=== PATIENT | male | born 1955 | race Caucasian/White ===

== ENCOUNTER → 2017-08-24 | Outpatient (CLI) | payer MEDICARE, SELFPAY | PROVIDERS: Family Provider Nurse Practitioner Family; Visit Provider Internal Medicine | DX: R07.9 Chest pain, unspecified (principal); R94.31 Abnormal electrocardiogram [ECG] [EKG]; E11.9 Type 2 diabetes mellitus without complications; I10 Essential (primary) hypertension; E78.2 Mixed hyperlipidemia; K21.9 Gastro-esophageal reflux disease without esophagitis; Z87.891 Personal history of nicotine dependence | CPT/HCPCS: 78452; 93017; A9502; J2785 ==

== ENCOUNTER 2017-09-07 06:59 | Day surgery (SDC) | payer MEDICARE, SELFPAY ==
[2017-09-07] VITALS (15 sets, daily range): BP systolic 85–157; BP diastolic 42–90; PULSE 47–63; RESP 16–18; TEMP 36.7; O2SAT 91–98; BMI 30.5
--- NOTE | 2017-09-07 07:16 | IR_ITS ---
CARDIAC CATHETERIZATION DATE OF CATHETERIZATION:09/07/2017 11:09 AM PROCEDURES: 1. Left heart catheterization 2. Left ventriculogram 3. Selective coronary angiogram 4. Drug-eluting stent deployment to the proximal mid dominant right coronary artery INDICATION FOR TEST: 1. Coronary artery disease 2. Abnormal high risk Myoview with inferior lateral ischemia 3. Angina pectoris 3 Informed consent was obtained prior to the procedure. COMPLICATIONS: None ESTIMATED BLOOD LOSS: Less than 10 ml. TECHNIQUE: One percent lidocaine used to anesthetize the right anterior aspect of the wrist. The right radial artery was accessed via the Seldinger technique. A 6 [place] sheath was placed in the right radial artery. 2.5 mg of verapamil, 800 mcg of nitroglycerin and 5000 U Heparin were given through the arterial sheath. The trap catheter was also used to perform left heart catheterization left ventriculogram and selective coronary angiogram. At the end the diagnostic angiogram and additional 5000 units of heparin was administered intravenously giving an ACT of 316 seconds. An TheraVida right guide catheter was used intubate the right coronary artery and a BMW wire was placed distally. A 3.5 x 26 mm resolute Blake stent was deployed in the proximal to mid segment 20 gabby reducing the stenosis to 0%. DALTON-3 flow was present before and after the procedure. Brilinta 180 mg was given while on the table. At the end the procedure the sheath was removed good hemostasis was achieved using TR banding patient transferred the postop holding area in stable condition ANGIOGRAPHIC RESULTS: 1. The left main artery normal 2. The left anterior descending artery proximally has 10-20% stenoses with mid vessel 20 and 30% stenoses 3. The circumflex artery is a nondominant vessel and has mild 10% luminal irregularities 4. The right coronary artery is a large dominant vessel and has a proximal concentric 80% stenosis followed by long 50% stenosis. Distally the vessel has 10-20% stenoses 5. The LOVELACE ventriculogram reveals normal 65% 6. The left ventricular end-diastolic pressure 10 mmHg IMPRESSION: 1. Severe single vessel coronary artery disease which perfectly corresponds to the high risk abnormal Myoview 2. Successful stenting of the proximal to mid dominant right coronary artery severe disease reduced to 0% with 1 drug-eluting stent 3. Normal ejection fraction 4. Normal left ventricular end-diastolic pressure PLAN: 1. Brilinta and aspirin 2. LDL less than 55 3. Cardiac rehabilitation 4. Risk factor modification
[2017-09-07 08:11] LABS: Basophils # 0.1 K/mm3 (0-0.2); Eosinophils # 0.6 K/mm3 (0.0-0.4); Eosinophils % 6.5 % (0.1-12.0); Hematocrit 46.9 % (42.0-52.0); Hemoglobin 14.9 g/dL (14.1-18.0); Lymphocytes # 1.7 K/mm3 (0.7-4.5); Lymphocytes % 17.6 K/mm3 (10-50); Mean Corpuscular HGB Conc 31.7 g/dL (31.8-35.4); Mean Corpuscular Hemoglobin 27.4 pg (27.0-31.2); Mean Corpuscular Volume 86.2 fl (80-94); Mean Platelet Volume 6.9 fl (7.4-10.4); Monocytes # 0.6 K/mm3 (0.1-1.0); Monocytes % 6.3 % (1.7-9.3); Neutrophils # 6.5 K/mm3 (1.8-7.8); Neutrophils % 68.5 % (37.0-80.0); Platelet Count 430 K/mm3 (142-424); Red Blood Count 5.44 M/mm3 (4.60-6.20); Red Cell Distribution Width 14.3 % (11.5-17.5); White Blood Count 9.4 K/mm3 (4.8-10.8)
[2017-09-07 08:15] LABS: Anion Gap 10.2 mEq/L (5-15); Blood Urea Nitrogen 17 mg/dL (7-18); Carbon Dioxide 29 mmol/L (21.0-32.0); Chloride 103 mmol/L (98-107); Creatinine Clearance Estimated 88 mg/ml (0-300); Creatinine,Serum 1.21 mg/dL (0.70-1.30); Estimated Glomerular Filt Rate > 60 ml/min (>60); GFR (African American) > 60 ML/MIN (>60); Glucose 183 mg/dL (74-106); Potassium 4.2 mmoL/L (3.5-5.1); Sodium 138 mmol/L (136-145)
[2017-09-07 15:25] LABS: CATHL Activated Clotting Time 316 SEC (74-125)
== END 2017-09-07 15:00 | disposition home or self-care (01) ==
LOC: CATHLAB 07:03
PROVIDERS: PCP Emergency Medicine; Visit Provider Internal Medicine
DX: I25.119 Atherosclerotic heart disease of native coronary artery with unspecified angina pectoris (principal); R94.39 Abnormal result of other cardiovascular function study
CPT/HCPCS: 80048; 85025; 85347; 92928; 93458; 99152; C1725; C1769; C1876; C9600; J1644; Q9967

== ENCOUNTER 2017-11-03 03:50 | Emergency (ER) | payer MEDICARE, SELFPAY ==
[2017-11-03 03:53] VITALS: BP 172/88; PULSE 112; RESP 24; TEMP 36.6; O2SAT 97; BMI 31.0
--- NOTE | 2017-11-03 04:04 | XR_ITS ---
XR chest portable HISTORY: ITS.REASON: cough with blood ORDERING PHYSICIAN: Bishop Benjamin MD PATIENT AGE: 62 years COMPARISON: None available FINDINGS: The cardiomediastinal silhouette and pulmonary vascularity are within normal limits. There is coarsening of bronchovascular markings. This may be seen with chronic bronchitis/chronic peribronchial inflammatory change. This is not significantly changed. There is a faint nodular opacity overlying the left upper lobe and 7 mm nonspecific. No lobar consolidation or collapse. No acute bony anomalies. IMPRESSION: 1. Chronic coarsening of the bronchovascular markings suggesting chronic bronchitis/COPD. No lobar consolidation or collapse 2. Nonspecific 7 mm left upper lobe nodular opacity
[2017-11-03 04:32] LABS: Basophils # 0.1 K/mm3 (0-0.2); Basophils % 0.8 % (0.1-2.0); Eosinophils # 0.6 K/mm3 (0.0-0.4); Eosinophils % 4.7 % (0.1-12.0); Hemoglobin 14.8 g/dL (14.1-18.0); Lymphocytes # 2.8 K/mm3 (0.7-4.5); Lymphocytes % 24.1 K/mm3 (10-50); Mean Corpuscular HGB Conc 32.9 g/dL (31.8-35.4); Mean Corpuscular Hemoglobin 27.9 pg (27.0-31.2); Mean Platelet Volume 6.7 fl (7.4-10.4); Monocytes # 1.2 K/mm3 (0.1-1.0); Monocytes % 9.8 % (1.7-9.3); Neutrophils # 7.1 K/mm3 (1.8-7.8); Neutrophils % 60.5 % (37.0-80.0); Platelet Count 476 K/mm3 (142-424); Red Blood Count 5.29 M/mm3 (4.60-6.20); Red Cell Distribution Width 13.8 % (11.5-17.5); White Blood Count 11.8 K/mm3 (4.8-10.8)
[2017-11-03 04:40] LABS: Activated Partial Thrombo Time 26.4 seconds (23.6-34.0); INR 0.96 (0.9-1.1); Prothrombin Time 10.4 seconds (9.4-11.8)
[2017-11-03 04:41] LABS: Alanine Aminotransferase 38 U/L (12-78); Albumin Level 3.9 gm/dL (3.4-5.0); Albumin/Globulin Ratio 0.9 (1.1-1.8); Alkaline Phosphatase 86 U/L (46-116); Anion Gap 11.5 mEq/L (5-15); Aspartate Amino Transferase 19 U/L (15-37); Bilirubin,Total 0.7 mg/dL (0.2-1.0); Blood Urea Nitrogen 21 mg/dL (7-18); Calcium 9.2 mg/dL (8.5-10.1); Carbon Dioxide 28 mmol/L (21.0-32.0); Chloride 102 mmol/L (98-107); Globulin 4.3 gm/dl (1.3-3.2); Glucose 144 mg/dL (74-106); Potassium 3.5 mmoL/L (3.5-5.1); Sodium 138 mmol/L (136-145); Total Protein,Serum 8.2 gm/dL (6.4-8.2)
[2017-11-03 04:47] LABS: Creatinine Clearance Estimated 96 mL/min (0-300); Creatinine,Serum 1.08 mg/dL (0.70-1.30); Estimated Glomerular Filt Rate 69 ml/min (>60); GFR (African American) 84 ML/MIN (>60)
--- NOTE | 2017-11-03 04:50 | HMH.EDSOB ---
ED Disposition Clinical Impression: Hemoptysis Disposition: Xfer Short-Term Hosp Condition on Discharge: Good Referrals: Bishop Benjamin MD [Primary Care Provider] - - Critical Care Critical Care Time: No Attestation: On 11/03/17, the high probability of a clinically significant, sudden or life threatening deterioration of the following system(s) required my full and direct attention, intervention and personal management. The time I documented below is in addition to time spent performing reported procedures but includes the following listed in this critical care notation. Medical Decision Making - Medical Records Medical records reviewed: Yes: I reviewed the patient's medical records. Vital Signs: 11/03/17 03:53 Pulse Rate [Right Radial] 112 H Respiratory Rate 24 Blood Pressure [Right Arm] 172/88 Blood Pressure Mean [Right Arm] 116 Blood Pressure Source [Right Arm] Manual Cuff/ Auscultation Blood Pressure Position [Right Arm] Sitting 02 Sat by Pulse Oximetry 97 Oxygen Delivery Method Room Air - Lab Data Lab results reviewed: Yes: I reviewed the patient's lab results. Lab Results 11/03/17 04:15: WBC 11.8 H, RBC 5.29, Hgb 14.8, Hct 45.0, MCV 85.0, MCH 27.9, MCHC 32.9, RDW 13.8, Plt Count 476 H, MPV 6.7 L, Neut % (Auto) 60.5, Lymph % (Auto) 24.1, [facility] % (Auto) 9.8 H, Eos % (Auto) 4.7, Baso % (Auto) 0.8, Neut # (Auto) 7.1, Lymph # (Auto) 2.8, [facility] # (Auto) 1.2 H, Eos # (Auto) 0.6 H, Baso # (Auto) 0.1 11/03/17 04:15: PT 10.4, INR 0.96, APTT 26.4 11/03/17 04:15: Sodium 138, Potassium 3.5, Chloride 102, Carbon Dioxide 28, Anion Gap 11.5, BUN 21 H, Creatinine 1.08, Estimated Creat Clear 96, Estimated GFR 69, Est GFR ( Amer) 84, Glucose 144 H, Calcium 9.2, Total Bilirubin 0.7, AST 19, ALT 38, Alkaline Phosphatase 86, Total Protein 8.2, Albumin 3.9, Globulin 4.3 H, Albumin/Globulin Ratio 0.9 L 11/03/17 04:15: Total Creatine Kinase 99, CK-MB (CK-2) 1.2, CK-MB (CK-2) Rel Index 1.2, Troponin I < 0.02 Result diagrams: 11/03/17 04:15 11/03/17 04:15 Orders (Tests/Meds): ED MEDICATIONS Generic Name Dose Route Start Last Admin Trade Name Freq PRN Reason Stop Dose Admin Sodium Chloride 10 ml 11/03/17 05:39 11/03/17 05:40 Rad-Saline Flush 10ml Syringe IV 12/03/17 05:38 10 ml NEEDED PRN Administration Maintain IV Site Discontinued Medications Generic Name Dose Route Start Last Admin Trade Name Freq PRN Reason Stop Dose Admin Iopamidol 75 ml 11/03/17 05:39 11/03/17 05:40 [id number]; 75ml Vial IV 11/03/17 05:40 75 ml ONCE ONE Administration ORDERS Category Date Time Status CT soft tissue neck w con Stat Cat Scan 11/03/17 04:53 Taken - Radiology Data #1 Image(s): Chest Image Reviewed: Yes I reviewed the patient's radiology image Preliminary Findings: Abnormal (see report) - CT Data CT Scan: Other (neck) Time Received: 07:[address] Reviewed: Yes: I have viewed the radiologist's interpretation Preliminary Findings: Abnormal (see report) - ECG Data Tracing #1 I reviewed this ECG and interpreted as documented below: Normal Sinus Rhythm: Yes Ischemic changes: non-specific ST-T wave changes - Physician Consults Physician Consulted: ling Reason -: Pt condition Additional Consult: emma Reason -: Transfer to another facilty - Telly Inquiry Pt receiving controlled substance: No Resp/SOB HPI - General Chief Complaint: Shortness of Breath/Dyspnea Stated Complaint: coughing up blood Time Seen by Provider: 11/03/17 04:50 Mode of Arrival: Ambulatory Source of Information: Patient, Spouse, Medical Record Limitations: No Limitations Description of Symptoms (Recalled from ER Triage Doc. by RN): coughing up blood - History of Present Illness bleeding from stoma - laryngectomy over the last 2 days with no known fever or trauma Context: other (has stoma- no known reoccurence ) Severity: moderate - Related Data Home Medicat
--- NOTE | 2017-11-03 04:53 | CT_ITS ---
CT soft tissue neck w con INDICATION: History of throat cancer with hemoptysis ITS.REASON: hemoptysis ORDERING PHYSICIAN: Bishop Benjamin MD PATIENT AGE: 62 years COMPARISON: 08/09/2009 TECHNIQUE: Axial images are obtained following intravenous administration of 75 mL's of Isovue-370 contrast. Sagittal and coronal reformatted images are reviewed as well. FINDINGS: Patient is status post interval laryngectomy with tracheostomy tube noted at the base of the neck. No recurrent mass evident. No tonsillar enlargement or peritonsillar abscess. No adenopathy. Centrilobular emphysematous changes are present in the lung apices with a calcified granuloma in the right lung apex. Left mastoid sinus is opacified. There is mucus retention cyst in the floor the left maxillary sinus. Extensive collateral vessels are present in the left shoulder with discontinuity of the left subclavian vein consistent with chronic subclavian vein occlusion. The central aspect of the subclavian vein and brachiocephalic vein are patent. IMPRESSION: 1. Status post interval laryngectomy. No recurrent mass evident. 2. Tracheostomy tube in satisfactory position. 3. Chronic occlusion of left subclavian vein. 4. Left mastoid sinus disease. 5. Centrilobular emphysema
[2017-11-03 05:16] LABS: CKMB Relative Index 1.2 U/L (0-4.0); Creatine Kinase 99 U/L (39-308); Creatine Kinase MB 1.2 mg/ml (0.0-3.6); Troponin I < 0.02 ng/ml (0.00-0.06)
--- NOTE | 2017-11-03 07:19 | PC.NURSE ---
call placed to herminia; waiting on transfer truck at 0800 to take pt to ed. call placed to gera who received report.
[2017-11-03 07:22] VITALS: BP 178/85; PULSE 78; RESP 18; TEMP 36.8; O2SAT 96
[2017-11-03 07:36] VITALS: BP 142/70; PULSE 73; RESP 18; TEMP 36.7; O2SAT 98
== END 2017-11-03 08:36 | disposition short-term general hospital (02) ==
PROVIDERS: Emergency Provider Emergency Medicine; PCP Emergency Medicine
DX: R04.2 Hemoptysis (principal); R06.02 Shortness of breath; Z79.899 Other long term (current) drug therapy; Z88.0 Allergy status to penicillin
CPT/HCPCS: 70491; 71045; 80053; 82550; 82553; 84484; 85025; 85610; 85730; 93005; 93041; 96365; 99283; Q9967

== ENCOUNTER → 2018-02-10 14:09 | Outpatient (CLI) | payer MEDICARE, SELFPAY ==
--- NOTE | 2018-02-10 14:11 | XR_ITS ---
XR foot wt bearing RT 3V HISTORY: ITS.REASON: pain ORDERING PHYSICIAN: Mira Bojorquez DPM PATIENT AGE: 62 years COMPARISON: None FINDINGS: No fracture or dislocation. No lytic or blastic change. There is normal mineralization.. The joint spaces are well-preserved. No significant degenerative/arthritic changes. No erosive changes evident. Normal alignment IMPRESSION: Negative, no acute finding
--- NOTE | 2018-02-10 14:11 | XR_ITS ---
XR foot wt bearing LT 3V HISTORY: ITS.REASON: pain ORDERING PHYSICIAN: Mira Bojorquez DPM PATIENT AGE: 62 years COMPARISON: None FINDINGS: No fracture or dislocation. No lytic or blastic change. There is normal mineralization.. The joint spaces are well-preserved. No significant degenerative/arthritic changes. No erosive changes evident. Normal alignment IMPRESSION: Negative, no acute finding
== END ==
PROVIDERS: Visit Provider Podiatrist
DX: Z51.89 Encounter for other specified aftercare (principal)
CPT/HCPCS: 73630

== ENCOUNTER → 2018-02-10 14:45 | Outpatient (REF) | payer MEDICARE, SELFPAY ==
[2018-02-10 17:34] LABS: Basophils # 0.1 K/mm3 (0-0.2); Basophils % 1.1 % (0.1-2.0); Eosinophils # 0.6 K/mm3 (0.0-0.4); Eosinophils % 6.4 % (0.1-12.0); Hematocrit 49.6 % (42.0-52.0); Lymphocytes # 1.6 K/mm3 (0.7-4.5); Mean Corpuscular HGB Conc 30.3 g/dL (31.8-35.4); Mean Corpuscular Hemoglobin 26.5 pg (27.0-31.2); Mean Corpuscular Volume 87.4 fl (80-94); Mean Platelet Volume 7.3 fl (7.4-10.4); Monocytes # 0.8 K/mm3 (0.1-1.0); Monocytes % 8.1 % (1.7-9.3); Neutrophils # 6.2 K/mm3 (1.8-7.8); Neutrophils % 67.4 % (37.0-80.0); Platelet Count 420 K/mm3 (142-424); Red Blood Count 5.67 M/mm3 (4.60-6.20); Red Cell Distribution Width 13.4 % (11.5-17.5); White Blood Count 9.2 K/mm3 (4.8-10.8)
[2018-02-10 18:03] LABS: Amphetamine/Metha Screen,Urine Negative ng/mL (<1000); Barbiturates Screen,Urine Negative ng/mL (<200); Benzodiazepines Screen,Urine Positive ng/mL (200); Cannabinoid Screen,Urine Negative ng/mL (<50); Cocaine Screen,Urine Negative ng/g (<300); Methadone Screen,Urine Negative ng/mL (<300); Opiate Screen,Urine Negative ng/mL (<300); Phencyclidine Screen,Urine Negative ng/mL (<25)
[2018-02-10 18:07] LABS: Alanine Aminotransferase 57 U/L (12-78); Albumin Level 4.2 gm/dL (3.4-5.0); Albumin/Globulin Ratio 1.1 (1.1-1.8); Alkaline Phosphatase 118 U/L (46-116); Anion Gap 15.8 mEq/L (5-15); Aspartate Amino Transferase 29 U/L (15-37); Bilirubin,Total 0.5 mg/dL (0.2-1.0); Blood Urea Nitrogen 21 mg/dL (7-18); Calcium 10.3 mg/dL (8.5-10.1); Carbon Dioxide 26 mmol/L (21.0-32.0); Chloride 100 mmol/L (98-107); Cholesterol 134 mg/dL (140-200); Creatinine,Serum 1.18 mg/dL (0.70-1.30); Estimated Glomerular Filt Rate 63 ml/min (>60); GFR (African American) 76 ML/MIN (>60); Globulin 3.9 gm/dl (1.3-3.2); Glucose 384 mg/dL (74-106); HDL Cholesterol 45 mg/dL (27-67); LDL Cholesterol 48 mg/dL (0-130); Potassium 4.8 mmoL/L (3.5-5.1); Sodium 137 mmol/L (136-145); T4 (Thyroxine) 7.2 ug/dl (4.7-13.3); Thyroid Stimulating Hormone 1.24 uIU/ml (0.358-3.740); Total Protein,Serum 8.1 gm/dL (6.4-8.2); Triglycerides 204 mg/dL (30-200); VLDL Cholesterol 41 mg/dL (0-40)
[2018-02-12 20:25] LABS: Microalbumin, Urine 49.1 ug/mL (Not Estab.); Vitamin D 25 Hydroxy 33.3 ng/mL (30.0-100.0)
[2018-02-16 16:22] LABS: Alprazolam Negative (Cutoff=100); Benzodiazepines Positive ng/mL (Cutoff=100); Clonazepam Negative (Cutoff=100); Flurazepam Negative (Cutoff=100); Lorazepam Negative (Cutoff=100); Midazolam Negative (Cutoff=100); Temazepam Positive (.); Triazolam Negative (Cutoff=100)
== END ==
LOC: LAB 14:45
PROVIDERS: Visit Provider Nurse Practitioner Family
DX: E11.9 Type 2 diabetes mellitus without complications (principal); Z79.899 Other long term (current) drug therapy; Z51.89 Encounter for other specified aftercare
CPT/HCPCS: 73630; 80053; 80061; 80305; 80346; 82043; 82652; 83036; 84436; 84443; 85025

== ENCOUNTER → 2018-03-08 15:55 | Outpatient (REF) | payer MEDICARE, SELFPAY ==
[2018-03-08 18:41] LABS: Amphetamine/Metha Screen,Urine Negative ng/mL (<1000); Barbiturates Screen,Urine Negative ng/mL (<200); Benzodiazepines Screen,Urine Positive ng/mL (<200); Cannabinoid Screen,Urine Negative ng/mL (<50); Cocaine Screen,Urine Negative ng/mL (<300); Methadone Screen,Urine Negative ng/mL (<300); Opiate Screen,Urine Negative ng/mL (<300); Phencyclidine Screen,Urine Negative ng/mL (<25)
[2018-03-14 15:15] LABS: Alprazolam Negative (Cutoff=100); Benzodiazepines Positive ng/mL (Cutoff=100); Clonazepam Positive (.); Flurazepam Negative (Cutoff=100); Lorazepam Negative (Cutoff=100); Midazolam Negative (Cutoff=100); Temazepam Negative (Cutoff=100); Triazolam Negative (Cutoff=100)
[2018-03-15 15:21] LABS: Clonazepam Confirm 207 ng/mL (Cutoff=100)
== END ==
LOC: LAB 15:55
PROVIDERS: Visit Provider Nurse Practitioner Family
DX: Z79.899 Other long term (current) drug therapy (principal)
CPT/HCPCS: 80305; 80346

== ENCOUNTER → 2018-03-10 11:45 | Outpatient (CLI) | payer MEDICARE, SELFPAY | PROVIDERS: Visit Provider Nurse Practitioner Family | DX: Z79.899 Other long term (current) drug therapy (principal) ==

== ENCOUNTER → 2018-03-14 13:46 | Outpatient (REF) | payer MEDICARE, SELFPAY ==
[2018-03-14 14:12] LABS: Amphetamine/Metha Screen,Urine Negative ng/mL (<1000); Barbiturates Screen,Urine Negative ng/mL (<200); Benzodiazepines Screen,Urine Positive ng/mL (<200); Cannabinoid Screen,Urine Negative ng/mL (<50); Cocaine Screen,Urine Negative ng/mL (<300); Methadone Screen,Urine Negative ng/mL (<300); Opiate Screen,Urine Negative ng/mL (<300); Phencyclidine Screen,Urine Negative ng/mL (<25)
== END ==
LOC: LAB 13:46
PROVIDERS: Visit Provider Nurse Practitioner Family
DX: Z79.899 Other long term (current) drug therapy (principal)
CPT/HCPCS: 80305

== ENCOUNTER → 2018-06-15 10:25 | Outpatient (REF) | payer MEDICARE, SELFPAY ==
[2018-06-15 14:22] LABS: Amphetamine/Metha Screen,Urine Negative ng/mL (<1000); Barbiturates Screen,Urine Negative ng/mL (<200); Benzodiazepines Screen,Urine Negative ng/mL (<200); Cannabinoid Screen,Urine Negative ng/mL (<50); Cocaine Screen,Urine Negative ng/mL (<300); Methadone Screen,Urine Negative ng/mL (<300); Opiate Screen,Urine Negative ng/mL (<300); Phencyclidine Screen,Urine Negative ng/mL (<25)
== END ==
LOC: LAB 10:25
PROVIDERS: Visit Provider Nurse Practitioner Family
DX: Z79.899 Other long term (current) drug therapy (principal)
CPT/HCPCS: 80305

== ENCOUNTER → 2018-09-28 18:06 | Outpatient (CLI) | payer MEDICARE, SELFPAY ==
[2018-09-28 19:28] LABS: Amphetamine/Metha Screen,Urine Negative ng/mL (<1000); Barbiturates Screen,Urine Negative ng/mL (<200); Benzodiazepines Screen,Urine Negative ng/mL (<200); Cannabinoid Screen,Urine Negative ng/mL (<50); Cocaine Screen,Urine Negative ng/mL (<300); Methadone Screen,Urine Negative ng/mL (<300); Opiate Screen,Urine Negative ng/mL (<300); Phencyclidine Screen,Urine Negative ng/mL (<25)
== END ==
PROVIDERS: Visit Provider Nurse Practitioner Family
DX: Z79.899 Other long term (current) drug therapy (principal)
CPT/HCPCS: 80305

== ENCOUNTER → 2019-01-20 13:26 | Outpatient (CLI) | payer MEDICARE, SELFPAY ==
[2019-01-20 14:08] LABS: Amphetamine/Metha Screen,Urine Negative ng/mL (<1000); Barbiturates Screen,Urine Negative ng/mL (<200); Benzodiazepines Screen,Urine Negative ng/mL (<200); Cannabinoid Screen,Urine Negative ng/mL (<50); Cocaine Screen,Urine Negative ng/mL (<300); Methadone Screen,Urine Negative ng/mL (<300); Opiate Screen,Urine Negative ng/mL (<300); Phencyclidine Screen,Urine Negative ng/mL (<25)
[2019-01-20 14:30] LABS: Alanine Aminotransferase 64 U/L (12-78); Albumin Level 4.5 gm/dL (3.4-5.0); Albumin/Globulin Ratio 1.2 (1.1-1.8); Alkaline Phosphatase 73 U/L (46-116); Anion Gap 16.7 mEq/L (5-15); Aspartate Amino Transferase 28 U/L (15-37); Bilirubin,Total 0.6 mg/dL (0.2-1.0); Blood Urea Nitrogen 19 mg/dL (7-18); Calcium 9.9 mg/dL (8.5-10.1); Carbon Dioxide 24 mmol/L (21.0-32.0); Chloride 102 mmol/L (98-107); Chol/HDL Ratio 2.7 (1-3.5); Cholesterol 132 mg/dL (140-200); Creatinine,Serum 0.92 mg/dL (0.70-1.30); Estimated Glomerular Filt Rate 83 ml/min (>60); Free Thyroxine Index 2.9 ug/dL (5.93-13.13); GFR (African American) 101 ML/MIN (>60); Globulin 3.9 gm/dl (1.3-3.2); Glucose 168 mg/dL (74-106); HDL Cholesterol 49 mg/dL (27-67); LDL Cholesterol 65 mg/dL (0-130); Potassium 4.7 mmoL/L (3.5-5.1); Sodium 138 mmol/L (136-145); T4 (Thyroxine) 9.4 ug/dl (4.7-13.3); Total Protein,Serum 8.4 gm/dL (6.4-8.2); Triglycerides 92 mg/dL (30-200); Triiodothryronine (T3) Uptake 31 % (31-39); VLDL Cholesterol 18 mg/dL (0-40)
[2019-01-21 18:10] LABS: Prostate Specific Ag 0.7 ng/mL (0.0-4.0); Thyroid Peroxidase Antibodies 13 IU/mL (0-34); Vitamin D 25 Hydroxy 41.2 ng/mL (30.0-100.0)
[2019-01-22 17:32] LABS: Microalbumin, Urine 68.4 ug/mL (Not Estab.)
== END ==
LOC: LAB.DROPOF 13:28
PROVIDERS: Visit Provider Nurse Practitioner Family
DX: Z79.899 Other long term (current) drug therapy (principal); E11.42 Type 2 diabetes mellitus with diabetic polyneuropathy; I10 Essential (primary) hypertension; Z12.5 Encounter for screening for malignant neoplasm of prostate; R68.89 Other general symptoms and signs; R53.83 Other fatigue
CPT/HCPCS: 80053; 80061; 80305; 82043; 82652; 84153; 84154; 84436; 84443; 84479; 86376

== ENCOUNTER → 2019-05-05 13:27 | Outpatient (CLI) | payer MEDICARE, SELFPAY ==
[2019-05-05 14:55] LABS: Basophils # 0.1 K/mm3 (0-0.2); Basophils % 0.6 % (0.1-2.0); Eosinophils # 0.8 K/mm3 (0.0-0.4); Eosinophils % 6.3 % (0.1-12.0); Hematocrit 49.5 % (42.0-52.0); Hemoglobin 16.3 g/dL (14.1-18.0); Lymphocytes # 2.2 K/mm3 (0.7-4.5); Lymphocytes % 17.3 % (10-50); Mean Corpuscular Hemoglobin 28.7 pg (27.0-31.2); Mean Corpuscular Volume 87.1 fl (80-94); Mean Platelet Volume 6.7 fl (7.4-10.4); Monocytes % 7.7 % (1.7-9.3); Neutrophils # 8.5 K/mm3 (1.8-7.8); Neutrophils % 68.1 % (37.0-80.0); Platelet Count 477 K/mm3 (142-424); Red Blood Count 5.68 M/mm3 (4.60-6.20); White Blood Count 12.5 K/mm3 (4.8-10.8)
[2019-05-05 15:17] LABS: Amphetamine/Metha Screen,Urine Negative ng/mL (<1000); Barbiturates Screen,Urine Negative ng/mL (<200); Benzodiazepines Screen,Urine Positive ng/mL (<200); Cannabinoid Screen,Urine Negative ng/mL (<50); Cocaine Screen,Urine Negative ng/mL (<300); Methadone Screen,Urine Negative ng/mL (<300); Opiate Screen,Urine Negative ng/mL (<300); Phencyclidine Screen,Urine Negative ng/mL (<25)
[2019-05-05 15:32] LABS: Hemoglobin A1C 6.8 % (0.0-7.0)
== END ==
LOC: LAB.DROPOF 13:29
PROVIDERS: Visit Provider Nurse Practitioner Family
DX: E11.9 Type 2 diabetes mellitus without complications (principal); R06.7 Sneezing; Z79.899 Other long term (current) drug therapy; Z79.84 Long term (current) use of oral hypoglycemic drugs
CPT/HCPCS: 80305; 83036; 85025

== ENCOUNTER → 2019-09-08 14:34 | Outpatient (CLI) | payer MEDICARE, SELFPAY ==
[2019-09-08 15:40] LABS: Amphetamine/Metha Screen,Urine Negative ng/mL (<1000); Barbiturates Screen,Urine Negative ng/mL (<200); Benzodiazepines Screen,Urine Negative ng/mL (<200); Cannabinoid Screen,Urine Negative ng/mL (<50); Cocaine Screen,Urine Negative ng/mL (<300); Methadone Screen,Urine Negative ng/mL (<300); Opiate Screen,Urine Negative ng/mL (<300); Phencyclidine Screen,Urine Negative ng/mL (<25)
== END ==
LOC: LAB.DROPOF 14:35
PROVIDERS: Visit Provider Nurse Practitioner Family
DX: Z79.899 Other long term (current) drug therapy (principal)
CPT/HCPCS: 80305

== ENCOUNTER → 2020-02-07 19:33 | Outpatient (CLI) | payer MEDICARE, SELFPAY ==
[2020-02-07 20:29] LABS: Basophils # 0.1 K/mm3 (0-0.2); Eosinophils # 0.8 K/mm3 (0.0-0.4); Eosinophils % 7.5 % (0.1-12.0); Hematocrit 46.1 % (42.0-52.0); Hemoglobin 15.3 g/dL (14.1-18.0); Lymphocytes # 1.9 K/mm3 (0.7-4.5); Lymphocytes % 18.7 % (10-50); Mean Corpuscular HGB Conc 33.3 g/dL (31.8-35.4); Mean Corpuscular Hemoglobin 29.3 pg (27.0-31.2); Mean Platelet Volume 8.2 fl (7.4-10.4); Monocytes # 0.8 K/mm3 (0.1-1.0); Monocytes % 8.3 % (1.7-9.3); Neutrophils # 6.5 K/mm3 (1.8-7.8); Neutrophils % 64.4 % (37.0-80.0); Platelet Count 433 K/mm3 (142-424); Red Blood Count 5.24 M/mm3 (4.60-6.20); Red Cell Distribution Width 13.8 % (11.5-17.5); White Blood Count 10.1 K/mm3 (4.8-10.8)
[2020-02-07 20:36] LABS: Chloride 104 mmol/L (98-107)
[2020-02-07 20:37] LABS: Potassium 4.6 mmoL/L (3.5-5.1); Sodium 140 mmol/L (136-145)
[2020-02-07 20:39] LABS: Alanine Aminotransferase 34 U/L (12-78); Alkaline Phosphatase 80 U/L (38-126); Anion Gap 17.6 mEq/L (5-15); Aspartate Amino Transferase 37 U/L (17-59); Bilirubin,Total 0.8 mg/dl (0.2-1.3); Blood Urea Nitrogen 25 mg/dl (9-20); Carbon Dioxide 23 mmol/L (22.0-30.0); Estimated Glomerular Filt Rate 85 ml/min (>60); GFR (African American) 103 ML/MIN (>60)
[2020-02-07 20:40] LABS: Albumin Level 4.8 g/dl (3.5-5.0); Albumin/Globulin Ratio 1.5 (1.1-1.8); Calcium 10.2 mg/dl (8.4-10.2); Chol/HDL Ratio 5.3 (1-3.5); Cholesterol 229 mg/dl (140-200); Globulin 3.2 g/dL (1.3-3.2); Glucose 152 mg/dl (74-100); HDL Cholesterol 43 mg/dl (40-60)
[2020-02-07 20:51] LABS: Direct LDL Cholesterol 140.49 mg/dL (100-129)
[2020-02-07 20:54] LABS: Triglycerides 464 mg/dl (30-150)
[2020-02-07 20:57] LABS: T4 (Thyroxine) 7.5 ug/dl (5.53-11.0)
[2020-02-07 21:38] LABS: Hemoglobin A1C 6.9 % (4.0-6.0)
[2020-02-07 22:03] LABS: Thyroid Stimulating Hormone 2.51 uIU/mL (0.465-4.68)
[2020-02-09 10:24] LABS: Creatinine, Urine 110.9 mg/dL (Not Estab.); Microalbumin, Urine 22.4 ug/mL (Not Estab.)
[2020-02-09 12:05] LABS: Vitamin D 25 Hydroxy 29.1 ng/mL (30.0-100.0)
== END ==
LOC: LAB.DROPOF 19:34
PROVIDERS: Visit Provider Nurse Practitioner Family
DX: E11.9 Type 2 diabetes mellitus without complications (principal); F41.9 Anxiety disorder, unspecified; R04.2 Hemoptysis; E55.9 Vitamin D deficiency, unspecified; Z79.4 Long term (current) use of insulin
CPT/HCPCS: 80053; 80061; 82043; 82570; 82652; 83036; 84436; 84443; 85025

== ENCOUNTER → 2020-05-31 16:50 | Outpatient (CLI) | payer MEDICARE, SELFPAY ==
[2020-05-31 17:38] LABS: Basophils # 0.1 K/mm3 (0-0.2); Basophils % 0.8 % (0.1-2.0); Eosinophils # 0.4 K/mm3 (0.0-0.4); Eosinophils % 4.7 % (0.1-12.0); Hematocrit 43.9 % (42.0-52.0); Hemoglobin 14.3 g/dL (14.1-18.0); Lymphocytes # 1.4 K/mm3 (0.7-4.5); Lymphocytes % 15.6 % (10-50); Mean Corpuscular HGB Conc 32.5 g/dL (31.8-35.4); Mean Corpuscular Hemoglobin 28.9 pg (27.0-31.2); Mean Platelet Volume 8.9 fl (7.4-10.4); Monocytes # 0.9 K/mm3 (0.1-1.0); Monocytes % 9.8 % (1.7-9.3); Platelet Count 332 K/mm3 (142-424); Red Blood Count 4.93 M/mm3 (4.60-6.20); Red Cell Distribution Width 14.3 % (11.5-17.5); White Blood Count 8.8 K/mm3 (4.8-10.8)
[2020-05-31 17:49] LABS: Alanine Aminotransferase 52 U/L (12-78); Albumin Level 4.6 g/dl (3.5-5.0); Albumin/Globulin Ratio 1.5 (1.1-1.8); Alkaline Phosphatase 75 U/L (38-126); Aspartate Amino Transferase 44 U/L (17-59); Blood Urea Nitrogen 23 mg/dl (9-20); Calcium 9.8 mg/dl (8.4-10.2); Carbon Dioxide 25 mmol/L (22.0-30.0); Chloride 105 mmol/L (98-107); Chol/HDL Ratio 2.7 (1-3.5); Cholesterol 133 mg/dl (140-200); Estimated Glomerular Filt Rate 85 ml/min (>60); GFR (African American) 103 ML/MIN (>60); Globulin 3.1 g/dL (1.3-3.2); Glucose 199 mg/dl (74-100); HDL Cholesterol 49 mg/dl (40-60); Sodium 140 mmol/L (136-145); Total Protein,Serum 7.7 g/dl (6.3-8.2); Triglycerides 164 mg/dl (30-150); VLDL Cholesterol 33 mg/dL (0-40)
[2020-05-31 18:00] LABS: Direct LDL Cholesterol 74.49 mg/dL (100-129)
[2020-05-31 18:08] LABS: T4 (Thyroxine) 7.2 ug/dl (5.53-11.0)
[2020-05-31 18:21] LABS: Thyroid Stimulating Hormone 2.13 uIU/mL (0.465-4.68)
[2020-05-31 19:22] LABS: Hemoglobin A1C 8.5 % (4.0-6.0)
== END ==
LOC: LAB.DROPOF 16:50
PROVIDERS: Visit Provider Nurse Practitioner Family
DX: E11.9 Type 2 diabetes mellitus without complications (principal); F41.9 Anxiety disorder, unspecified; R04.2 Hemoptysis; Z79.4 Long term (current) use of insulin
CPT/HCPCS: 80053; 80061; 83036; 84436; 84443; 85025

== ENCOUNTER → 2020-11-06 14:03 | Outpatient (CLI) | payer MEDICARE, SELFPAY ==
[2020-11-06 14:16] LABS: Basophils # 0.1 K/mm3 (0-0.2); Basophils % 0.9 % (0.1-2.0); Eosinophils # 0.4 K/mm3 (0.0-0.4); Hematocrit 43.8 % (42.0-52.0); Hemoglobin 13.9 g/dL (14.1-18.0); Lymphocytes # 1.3 K/mm3 (0.7-4.5); Lymphocytes % 16.3 % (10-50); Mean Corpuscular HGB Conc 31.7 g/dL (31.8-35.4); Mean Corpuscular Hemoglobin 26.9 pg (27.0-31.2); Mean Corpuscular Volume 84.8 fl (80-94); Mean Platelet Volume 7.8 fl (7.4-10.4); Monocytes # 0.6 K/mm3 (0.1-1.0); Monocytes % 7.7 % (1.7-9.3); Neutrophils # 5.7 K/mm3 (1.8-7.8); Platelet Count 410 K/mm3 (142-424); Red Blood Count 5.16 M/mm3 (4.60-6.20); Red Cell Distribution Width 14.1 % (11.5-17.5); White Blood Count 8.2 K/mm3 (4.8-10.8)
[2020-11-06 14:35] LABS: Chloride 104 mmol/L (98-107); Potassium 4.7 mmoL/L (3.5-5.1); Sodium 139 mmol/L (136-145)
[2020-11-06 14:38] LABS: Alanine Aminotransferase 37 U/L (12-78); Albumin Level 4.7 g/dl (3.5-5.0); Albumin/Globulin Ratio 1.4 (1.1-1.8); Alkaline Phosphatase 69 U/L (38-126); Anion Gap 12.7 mEq/L (5-15); Aspartate Amino Transferase 36 U/L (17-59); Bilirubin,Total 0.5 mg/dl (0.2-1.3); Blood Urea Nitrogen 20 mg/dl (9-20); Calcium 10.2 mg/dl (8.4-10.2); Carbon Dioxide 27 mmol/L (22.0-30.0); Cholesterol 178 mg/dl (140-200); Estimated Glomerular Filt Rate 75 ml/min (>60); GFR (African American) 91 ML/MIN (>60); Globulin 3.4 g/dL (1.3-3.2); Glucose 209 mg/dl (74-100); Total Protein,Serum 8.1 g/dl (6.3-8.2); Triglycerides 143 mg/dl (30-150); VLDL Cholesterol 29 mg/dL (0-40)
[2020-11-06 14:39] LABS: Chol/HDL Ratio 3.2 (1-3.5); HDL Cholesterol 56 mg/dl (40-60)
[2020-11-06 15:00] LABS: 25-OH Vitamin D, Total 46.3 ng/mL (30-100)
[2020-11-06 15:04] LABS: Microalbumin/Creatinine Ratio 48.8
[2020-11-06 15:06] LABS: Direct LDL Cholesterol 95.07 mg/dL (100-129)
[2020-11-06 15:13] LABS: Creatinine,Urine Random 211 mg/dL (Not Estab.)
[2020-11-06 15:36] LABS: Thyroid Stimulating Hormone 9.39 uIU/mL (0.465-4.68)
== END ==
LOC: LAB.DROPOF 14:03
PROVIDERS: Visit Provider Nurse Practitioner Family
DX: E11.9 Type 2 diabetes mellitus without complications (principal); E78.5 Hyperlipidemia, unspecified; F41.9 Anxiety disorder, unspecified; I10 Essential (primary) hypertension; R04.2 Hemoptysis; E55.9 Vitamin D deficiency, unspecified; Z79.4 Long term (current) use of insulin
CPT/HCPCS: 80053; 80061; 82043; 82306; 82570; 83036; 84436; 84443; 85025

== ENCOUNTER → 2020-12-24 13:23 | Outpatient (CLI) | payer MEDICARE, SELFPAY ==
[2020-12-24 13:29] LABS: Microscopic, Urine URINE MICROSCOPIC (MICROSCOPIC)
[2020-12-24 14:05] LABS: Appearance,Urine CLEAR (Clear); Bilirubin,Urine Negative (Negative); Blood, Urine Negative (Negative); Color,Urine YELLOW (Yellow); Glucose,Urine (UA) 3+ (Negative); Ketones,Urine Negative (Negative); Leukocyte Esterase,Urine Negative (Negative); Nitrate,Urine Negative (Negative); Protein,Urine Negative (Negative); Urobilinogen,Urine 0.2 EU/dl (0.2)
[2020-12-24 14:22] LABS: Bacteria,Urine Trace /lpf
[2020-12-24 14:31] LABS: Basophils # 0.1 K/mm3 (0-0.2); Basophils % 0.7 % (0.1-2.0); Eosinophils # 0.7 K/mm3 (0.0-0.4); Eosinophils % 6.6 % (0.1-12.0); Hematocrit 44.7 % (42.0-52.0); Hemoglobin 14.3 g/dL (14.1-18.0); Lymphocytes % 18.2 % (10-50); Mean Corpuscular HGB Conc 32.1 g/dL (31.8-35.4); Mean Corpuscular Hemoglobin 26.5 pg (27.0-31.2); Mean Corpuscular Volume 82.4 fl (80-94); Mean Platelet Volume 7.1 fl (7.4-10.4); Monocytes # 0.8 K/mm3 (0.1-1.0); Monocytes % 7.7 % (1.7-9.3); Neutrophils # 7.2 K/mm3 (1.8-7.8); Neutrophils % 66.7 % (37.0-80.0); Platelet Count 427 K/mm3 (142-424); Red Blood Count 5.42 M/mm3 (4.60-6.20); Red Cell Distribution Width 14.3 % (11.5-17.5); White Blood Count 10.8 K/mm3 (4.8-10.8)
[2020-12-24 15:45] LABS: Alanine Aminotransferase 29 U/L (12-78); Albumin/Globulin Ratio 1.7 (1.1-1.8); Alkaline Phosphatase 80 U/L (38-126); Aspartate Amino Transferase 33 U/L (17-59); Bilirubin,Total 0.5 mg/dl (0.2-1.3); Blood Urea Nitrogen 23 mg/dl (9-20); Calcium 10.8 mg/dl (8.4-10.2); Carbon Dioxide 27 mmol/L (22.0-30.0); Chloride 103 mmol/L (98-107); Estimated Glomerular Filt Rate 85 ml/min (>60); GFR (African American) 102 ML/MIN (>60); Glucose 84 mg/dl (74-100); Sodium 139 mmol/L (136-145)
== END ==
LOC: LAB 13:27
PROVIDERS: Visit Provider Internal Medicine Nephrology
DX: R80.9 Proteinuria, unspecified (principal)
CPT/HCPCS: 36415; 80053; 81001; 85025

== ENCOUNTER → 2020-12-27 14:42 | Outpatient (POV) | payer MEDICARE, SELFPAY | PROVIDERS: Visit Provider Internal Medicine Nephrology | DX: Z00.00 Encounter for general adult medical examination without abnormal findings (principal) ==

== ENCOUNTER → 2021-02-21 13:16 | Outpatient (CLI) | payer MEDICARE, SELFPAY ==
[2021-02-21 13:41] LABS: Basophils # 0.1 K/mm3 (0-0.2); Basophils % 0.7 % (0.1-2.0); Eosinophils # 0.5 K/mm3 (0.0-0.4); Eosinophils % 4.7 % (0.1-12.0); Hematocrit 43.5 % (42.0-52.0); Hemoglobin 13.8 g/dL (14.1-18.0); Lymphocytes # 1.6 K/mm3 (0.7-4.5); Lymphocytes % 16.7 % (10-50); Mean Corpuscular HGB Conc 31.9 g/dL (31.8-35.4); Mean Corpuscular Hemoglobin 25.6 pg (27.0-31.2); Mean Corpuscular Volume 80.4 fl (80-94); Mean Platelet Volume 7.8 fl (7.4-10.4); Monocytes # 0.9 K/mm3 (0.1-1.0); Monocytes % 8.9 % (1.7-9.3); Neutrophils # 6.7 K/mm3 (1.8-7.8); Platelet Count 386 K/mm3 (142-424); Red Blood Count 5.41 M/mm3 (4.60-6.20); Red Cell Distribution Width 14.6 % (11.5-17.5); White Blood Count 9.7 K/mm3 (4.8-10.8)
[2021-02-21 13:43] LABS: Alanine Aminotransferase 33 U/L (12-78); Albumin Level 4.7 g/dl (3.5-5.0); Albumin/Globulin Ratio 1.7 (1.1-1.8); Alkaline Phosphatase 69 U/L (38-126); Aspartate Amino Transferase 35 U/L (17-59); Bilirubin,Total 0.8 mg/dl (0.2-1.3); Blood Urea Nitrogen 20 mg/dl (9-20); Calcium 9.8 mg/dl (8.4-10.2); Carbon Dioxide 25 mmol/L (22.0-30.0); Chloride 102 mmol/L (98-107); Chol/HDL Ratio 2.9 (1-3.5); Cholesterol 164 mg/dl (140-200); Estimated Glomerular Filt Rate 97 ml/min (>60); GFR (African American) 117 ML/MIN (>60); Globulin 2.8 g/dL (1.3-3.2); Glucose 138 mg/dl (74-100); HDL Cholesterol 56 mg/dl (40-60); Sodium 140 mmol/L (136-145); Total Protein,Serum 7.5 g/dl (6.3-8.2); Triglycerides 105 mg/dl (30-150); VLDL Cholesterol 21 mg/dL (0-40)
[2021-02-21 13:54] LABS: Direct LDL Cholesterol 83.51 mg/dL (100-129)
[2021-02-21 14:01] LABS: 25-OH Vitamin D, Total 43.8 ng/mL (30-100); T4 (Thyroxine) 8.1 ug/dl (5.53-11.0)
[2021-02-21 14:12] LABS: Hemoglobin A1C 6.4 % (4.0-6.0)
[2021-02-21 14:14] LABS: Prostate Specific Ag Screen 0.7 ng/ml (0.0-4.0); Thyroid Stimulating Hormone 0.34 uIU/mL (0.465-4.68)
== END ==
LOC: LAB.DROPOF 13:16
PROVIDERS: Visit Provider Nurse Practitioner Family
DX: E55.9 Vitamin D deficiency, unspecified (principal); E78.5 Hyperlipidemia, unspecified; R04.2 Hemoptysis; Z12.5 Encounter for screening for malignant neoplasm of prostate; F41.9 Anxiety disorder, unspecified; E11.9 Type 2 diabetes mellitus without complications; Z79.4 Long term (current) use of insulin
CPT/HCPCS: 80053; 80061; 82306; 83036; 84436; 84443; 85025; G0103

== ENCOUNTER → 2021-06-20 12:48 | Outpatient (CLI) | payer MEDICARE, SELFPAY ==
[2021-06-20 14:05] LABS: Barbiturates Screen,Urine Negative ng/ml (<200)
[2021-06-20 14:06] LABS: Benzodiazepines Screen,Urine Negative ng/ml (<200)
[2021-06-20 14:07] LABS: Amphetamine/Metha Screen,Urine Negative ng/ml (<1000); Cannabinoid Screen,Urine Negative ng/ml (<50)
[2021-06-20 14:09] LABS: Opiate Screen,Urine Negative ng/ml (<300)
[2021-06-20 14:10] LABS: Phencyclidine Screen,Urine Negative ng/ml (<25)
[2021-06-20 14:17] LABS: Cocaine Screen,Urine Negative ng/ml (<300); Methadone Screen,Urine Negative ng/ml (<300)
== END ==
LOC: LAB.DROPOF 12:48
PROVIDERS: Visit Provider Nurse Practitioner Family
DX: M54.9 Dorsalgia, unspecified (principal); Z79.899 Other long term (current) drug therapy
CPT/HCPCS: 80305

== ENCOUNTER → 2021-09-17 13:42 | Outpatient (CLI) | payer MEDICARE, SELFPAY ==
[2021-09-17 14:54] LABS: Amphetamine/Metha Screen,Urine Negative ng/ml (<1000)
[2021-09-17 14:55] LABS: Barbiturates Screen,Urine Negative ng/ml (<200)
[2021-09-17 14:56] LABS: Benzodiazepines Screen,Urine Negative ng/ml (<200); Cannabinoid Screen,Urine Negative ng/ml (<50)
[2021-09-17 14:57] LABS: Cocaine Screen,Urine Negative ng/ml (<300)
[2021-09-17 14:58] LABS: Methadone Screen,Urine Negative ng/ml (<300); Opiate Screen,Urine Negative ng/ml (<300)
[2021-09-17 14:59] LABS: Phencyclidine Screen,Urine Negative ng/ml (<25)
== END ==
LOC: LAB.DROPOF 13:42
PROVIDERS: Visit Provider Nurse Practitioner Family
DX: Z79.899 Other long term (current) drug therapy (principal)
CPT/HCPCS: 80305

== ENCOUNTER → 2022-01-26 13:18 | Outpatient (CLI) | payer MEDICARE, SELFPAY ==
[2022-01-26 19:35] LABS: Basophils # 0.1 K/mm3 (0-0.2); Basophils % 1.2 % (0.1-2.0); Eosinophils # 0.9 K/mm3 (0.0-0.4); Eosinophils % 8.4 % (0.1-12.0); Hematocrit 44.5 % (42.0-52.0); Hemoglobin 14.2 g/dL (14.1-18.0); Lymphocytes # 1.2 K/mm3 (0.7-4.5); Lymphocytes % 11.7 % (10-50); Mean Corpuscular HGB Conc 31.9 g/dL (31.8-35.4); Mean Corpuscular Hemoglobin 25.5 pg (27.0-31.2); Mean Corpuscular Volume 80.1 fl (80-94); Mean Platelet Volume 9.3 fl (7.4-10.4); Monocytes # 0.7 K/mm3 (0.1-1.0); Monocytes % 7.1 % (1.7-9.3); Neutrophils # 7.3 K/mm3 (1.8-7.8); Neutrophils % 71.6 % (37.0-80.0); Platelet Count 488 K/mm3 (142-424); Red Blood Count 5.56 M/mm3 (4.60-6.20); Red Cell Distribution Width 15.9 % (11.5-17.5); White Blood Count 10.2 K/mm3 (4.8-10.8)
[2022-01-26 20:57] LABS: Hemoglobin A1C 9.2 % (4.0-6.0)
[2022-01-26 21:47] LABS: Chloride 99 mmol/L (98-107)
[2022-01-26 21:48] LABS: Sodium 137 mmol/L (136-145)
[2022-01-26 21:50] LABS: Alanine Aminotransferase 40 U/L (12-78); Albumin Level 4.9 g/dl (3.5-5.0); Albumin/Globulin Ratio 1.5 (1.1-1.8); Alkaline Phosphatase 97 U/L (38-126); Aspartate Amino Transferase 44 U/L (17-59); Bilirubin,Total 0.7 mg/dl (0.2-1.3); Blood Urea Nitrogen 16 mg/dl (9-20); Calcium 10.1 mg/dl (8.4-10.2); Carbon Dioxide 25 mmol/L (22.0-30.0); Cholesterol 176 mg/dl (140-200); Estimated Glomerular Filt Rate 113 ml/min (>60); GFR (African American) 137 ML/MIN (>60); Globulin 3.2 g/dL (1.3-3.2); Glucose 368 mg/dl (74-100); Total Protein,Serum 8.1 g/dl (6.3-8.2); Triglycerides 271 mg/dl (30-150); VLDL Cholesterol 54 mg/dL (0-40)
[2022-01-26 21:51] LABS: Chol/HDL Ratio 3.6 (1-3.5); HDL Cholesterol 49 mg/dl (40-60)
[2022-01-26 21:51] LABS: Amphetamine/Metha Screen,Urine Negative ng/ml (<1000)
[2022-01-26 21:52] LABS: Barbiturates Screen,Urine Negative ng/ml (<200); Benzodiazepines Screen,Urine Negative ng/ml (<200)
[2022-01-26 21:53] LABS: Cannabinoid Screen,Urine Negative ng/ml (<50)
[2022-01-26 21:54] LABS: Cocaine Screen,Urine Negative ng/ml (<300); Methadone Screen,Urine Negative ng/ml (<300)
[2022-01-26 21:55] LABS: Opiate Screen,Urine Negative ng/ml (<300)
[2022-01-26 21:56] LABS: Phencyclidine Screen,Urine Negative ng/ml (<25)
[2022-01-26 22:17] LABS: Direct LDL Cholesterol 100.26 mg/dL (100-129)
== END ==
LOC: LAB.DROPOF 01-27 13:19
PROVIDERS: PCP Nurse Practitioner Family; Visit Provider Nurse Practitioner Family
DX: Z79.899 Other long term (current) drug therapy (principal); E11.9 Type 2 diabetes mellitus without complications; Z79.4 Long term (current) use of insulin
CPT/HCPCS: 80053; 80061; 80305; 83036; 85025

== ENCOUNTER 2022-02-26 18:04 | Observation (INO) | payer MEDICARE, SELFPAY ==
[2022-02-26 18:05] VITALS: BP 218/133; PULSE 117; RESP 22; O2SAT 97; BMI 32.5
--- NOTE | 2022-02-26 18:24 | ECG_ITS ---
APPROVED REPORT Exam: Resting ECG HR:115 bpm ECG Measurements Heart Rate 115 AXES OR 132 P 59 QRSd 89 QRS 14 QT 342 T 5 QTc 410 Conclusion SINUS TACHYCARDIA NONSPECIFIC ST & T-WAVE ABNORMALITY ABNORMAL RHYTHM ECG UNCONFIRMED REPORT Electronically signed by : Kevin Chao MD 02/27/2022 17:31:45
--- NOTE | 2022-02-26 18:40 | XR_ITS ---
PROCEDURE INFORMATION: Exam: XR Chest Exam date and time: 02/26/2022 6:43 PM Age: 66 years old Clinical indication: Cough TECHNIQUE: Imaging protocol: Radiologic exam of the chest. Views: 1 view. COMPARISON: CR [id number] XR chest portable 07/15/2018 10:54 AM FINDINGS: Lungs: Normal. Pleural spaces: Unremarkable. No pleural effusion. No pneumothorax. Heart/Mediastinum: Normal. Bones/joints: No acute abnormality. IMPRESSION: No acute findings.
[2022-02-26 18:43] LABS: Basophils # 0.2 K/mm3 (0-0.2); Basophils % 1.9 % (0.1-2.0); Eosinophils # 1.1 K/mm3 (0.0-0.4); Eosinophils % 10.5 % (0.1-12.0); Hematocrit 41.6 % (42.0-52.0); Hemoglobin 13.3 g/dL (14.1-18.0); Lymphocytes # 1.7 K/mm3 (0.7-4.5); Lymphocytes % 17.2 % (10-50); Mean Corpuscular HGB Conc 31.9 g/dL (31.8-35.4); Mean Corpuscular Hemoglobin 25.3 pg (27.0-31.2); Mean Corpuscular Volume 79.2 fl (80-94); Monocytes # 0.9 K/mm3 (0.1-1.0); Neutrophils # 6.1 K/mm3 (1.8-7.8); Neutrophils % 61.3 % (37.0-80.0); Platelet Count 428 K/mm3 (142-424); Red Blood Count 5.25 M/mm3 (4.60-6.20)
--- NOTE | 2022-02-26 18:43 | HMH.EDWEAK ---
ED Disposition Clinical Impression: Weakness, Uncontrolled hypertension Disposition: Still a Patient Condition on Discharge: Good Referrals: Provider,Referral, [Primary Care Provider] - - Critical Care Critical Care Time: No Attestation: On , the high probability of a clinically significant, sudden or life threatening deterioration of the following system(s) required my full and direct attention, intervention and personal management. The time I documented below is in addition to time spent performing reported procedures but includes the following listed in this critical care notation. Medical Decision Making - Medical Records Medical records reviewed: Yes: I reviewed the patient's medical records. - Telly Inquiry Pt receiving controlled substance: No Vital Signs: 02/26/22 18:05 02/26/22 18:45 Pulse Rate 103 H Pulse Rate [Brachial] 117 H Respiratory Rate 22 22 Blood Pressure 163/101 H Blood Pressure [Right Arm] 218/133 H Blood Pressure Mean 121 Blood Pressure Mean [Right Arm] 161 Blood Pressure Source [Right Arm] Automatic Cuff Blood Pressure Position [Right Arm] Sitting 02 Sat by Pulse Oximetry 97 95 Oxygen Delivery Method Room Air - Lab Data Lab Results 02/26/22 18:35: WBC 10.0, RBC 5.25, Hgb 13.3 L, Hct 41.6 L, MCV 79.2 L, MCH 25.3 L, MCHC 31.9, RDW 16.0, Plt Count 428 H, MPV 8.0, Neut % (Auto) 61.3, Lymph % (Auto) 17.2, [place] % (Auto) 9.0, Eos % (Auto) 10.5, Baso % (Auto) 1.9, Neut # (Auto) 6.1, Lymph # (Auto) 1.7, [place] # (Auto) 0.9, Eos # (Auto) 1.1 H, Baso # (Auto) 0.2 02/26/22 18:35: Sodium 140, Potassium 4.0, Chloride 105, Carbon Dioxide 24, Anion Gap 15.0, BUN 14, Creatinine 0.80, Estimated Creat Clear 103, Estimated GFR 97, Est GFR ( Amer) 117, Glucose 196 H, Calcium 9.5 02/26/22 18:35: Troponin I < 0.01 Result diagrams: 02/26/22 18:35 02/26/22 18:35 Orders (Tests/Meds): ED MEDICATIONS Discontinued Medications Generic Name Dose Route Start Last Admin Trade Name [place] PRN Reason Stop Dose Admin Metoprolol Tartrate 5 mg 02/26/22 18:41 02/26/22 18:49 Metoprolol Tartrate 5mg/5ml Vial IV 02/26/22 18:42 5 mg ONCE ONE Administration ORDERS Category Date Time Status Troponin I Q3H Lab 02/26/22 21:45 Ordered Troponin I Q3H Lab 02/27/22 00:45 Ordered ECG Request by /Nse Stat Y 02/26/22 18:27 Ordered - ECG Data Tracing #1 I reviewed this ECG and interpreted as documented below: ekg by sinus 115, qrs narrow, non spec st changes Weakness HPI - General Chief complaint: Weakness Stated complaint: possible high blood pressure Time Seen by Provider: 02/26/22 18:43 Mode of Arrival: Ambulatory Limitations: No Limitations Description of Symptoms (Recalled from ER Triage Doc. by RN): PT TO ED WITH C/O INCREASED B/P TODAY. WEAKNESS, HEADACHE AND DIZZINESS. DENIES PAIN OR SOA - History of Present Illness HPI Narrative: uncontrolled elev bp, weakness, frontal palma Onset (ago): week(s) Duration: intermittent Location: generalized Migration: none Severity: moderate Relieving factors: none Exacerbating factors: none Associated symptoms: denies other symptoms - Related Data Previous Rx's Medication Instructions Recorded aspirin 81 mg chewable tablet 81 mg PO DAILY #90 tab 10/28/18 insulin NPH-regular 70-30 U-100 10 unit SQ HS #15 ml 10/28/18 insulin 100 unit/mL subcutaneous pen metoprolol succinate 25 mg 25 mg PO DAILY #90 tab 10/28/18 tablet,extended release 24 hr cetirizine 10 mg tablet 10 mg PO DAILY #30 tab 11/08/19 blood sugar diagnostic See Rx Instructions .ROUTE 11/25/20 .MEDSUPPLY #10 each blood-glucose meter See Rx Instructions .ROUTE 11/25/20 .MEDSUPPLY #1 each fluticasone propionate 50 See Rx Instructions .ROUTE 01/01/21 mcg/actuation nasal .COMPLEX #16 gram spray,suspension lancets See Rx Instructions .ROUTE 01/01/21 .COMPLEX #100 each ticagrelor 90 mg tablet See Rx Instructions .ROUTE 02/18/21
[2022-02-26 18:45] VITALS: BP 163/101; PULSE 103; RESP 22; O2SAT 95
--- NOTE | 2022-02-26 18:46 | PC.NURSE ---
XR AT BEDSIDE
--- NOTE | 2022-02-26 18:52 | PC.NURSE ---
B/P 172/108 HR 94 BEFORE METOPROLOL
[2022-02-26 18:57] LABS: Blood Urea Nitrogen 14 mg/dl (9-20); Calcium 9.5 mg/dl (8.4-10.2); Carbon Dioxide 24 mmol/L (22.0-30.0); Chloride 105 mmol/L (98-107); Creatinine Clearance Estimated 103 mL/min (50-200); Estimated Glomerular Filt Rate 97 ml/min (>60); GFR (African American) 117 ML/MIN (>60); Glucose 196 mg/dl (74-100); Sodium 140 mmol/L (136-145)
--- NOTE | 2022-02-26 19:02 | PC.NURSE ---
161/89 B/P HR 70 AFTER METOPROLOL
[2022-02-26 19:15] LABS: Troponin I < 0.01 ng/ml (0.00-0.034)
[2022-02-26 20:22] LABS: Coronavirus 19, PCR Not Detected (NotDetected); Influenza A, PCR Not Detected (NotDetected); Influenza B, PCR Not Detected (NotDetected)
[2022-02-26 20:30] LABS: POC Glucose,Bedside 183 (70-110)
--- NOTE | 2022-02-26 20:34 | PC.NURSE ---
PATIENT ADMITTED TO 206 WITH DX OF CHEST PAIN AND HYPERTENSIVE CRISIS TO SERVICE OF DR. MYERS
[2022-02-26 20:46] VITALS: BMI 31.7
[2022-02-26 21:19] VITALS: BP 135/89; PULSE 71; RESP 18; TEMP 36.8; O2SAT 96
--- NOTE | 2022-02-26 21:30 | PC.NURSE ---
PT ARRIVED TO FLOOR VIA W/C FROM ED W/STAFF @[id number]
[2022-02-26 21:34] LABS: Troponin I < 0.01 ng/ml (0.00-0.034)
[2022-02-26 21:41] VITALS: PULSE 70
[2022-02-26 21:45] VITALS: BP 135/89; PULSE 68; RESP 16; TEMP 36.8; O2SAT 96
[2022-02-26 22:20] LABS: POC Glucose,Bedside 184 (70-110)
[2022-02-26 23:31] VITALS: BP 173/95; PULSE 70; RESP 16; TEMP 36.7; O2SAT 95
[2022-02-27] VITALS (13 sets, daily range): BP systolic 145–206; BP diastolic 77–99; PULSE 70–84; RESP 16–20; TEMP 36.6–37.3; O2SAT 93–99; BMI 31.6
[2022-02-27 01:19] LABS: Troponin I < 0.01 ng/ml (0.00-0.034)
[2022-02-27 05:39] LABS: POC Glucose,Bedside 169 (70-110)
--- NOTE | 2022-02-27 06:00 | PC.NURSE ---
Patient is alert and oriented. The only complaint of pain is from a headache. He has slept well majority of the shift. Tech has taken towels and clean sheets into him and he is bathing this morning. His has stayed at bedside all night. Call light in place and working appropriately.
--- NOTE | 2022-02-27 07:16 | HMH.PHAVTE ---
[facility] Pharmacy VTE Monitoring - Patient Demographics Admission date: 02/27/22 Report Date: 02/27/22 Time: 07:16 Allergies/Adverse Reactions: Patient Allergies penicillin V [PENICILLIN V] Allergy (Unknown, Verified 01/26/22 14:16) Penicillins [PENICILLINS] Allergy (Unknown, Verified 01/26/22 14:16) Height: 1.75 m Weight: 97.125 kg Patient Problems: Current Active Problems Weakness (Acute) Uncontrolled hypertension (Acute) - VTE Risk Labs: VTE Related Lab Results Hgb 13.3 g/dL (14.1-18.0) L 02/26/22 18:35 Hct 41.6 % (42.0-52.0) L 02/26/22 18:35 Plt Count 428 K/mm3 (142-424) H 02/26/22 18:35 BUN 14 mg/dl (9-20) 02/26/22 18:35 Creatinine 0.80 mg/dl (0.66-1.25) 02/26/22 18:35 Estimated Creat Clear 103 mL/min (50-200) 02/26/22 18:35 Was VTE Risk Assessment Performed: Yes VTE Score: 5 VTE Risk Level: Low Risk Clinical Trial Participant: No - Prophylaxis VTE Prophylaxis Ordered?: Yes Types of VTE Prophylaxis: TEDS Knee High
--- NOTE | 2022-02-27 07:23 | HMH.PHAINT ---
home medication list verified using list from [facility]
--- NOTE | 2022-02-27 08:00 | CA_ITS ---
APPROVED REPORT EXAM: Comprehensive 2D, Doppler, and color-flow Echocardiogram Sexual Assault Counsellor: Josephine Calero CRT Ht: 5 ft 9 in Wt: 220lbs BSA: 2.15 BP: 163/100 mmHg Indications: Chest Pain, CAD, Hyperlipidemia, Hypertension/HDD, stent CA 2D Dimensions Aortic Root 2.02 cm M-Mode Dimensions RVDd 2.83 cm (0.9-2.6) LA Diam 3.54 cm (1.9-4.0) LVDd 4.96 cm (3.5-5.7) Ao Diam 4.33 cm (2.0-3.7) LVDs 3.42 cm (3.5-5.7) IVSd 1.69 cm (0.6-1.1) PWd 0.97 cm (0.6-1.1) EF (Teich) 58.60% FS 31.00% EDV (Teich) 116.10 mL TAPSE 1.36 (<1.7) ESV (Teich) 48.10 mL LV Diastology E Decel Time 150.00 (160-240 msec) E/A Ratio 0.74 MED E' 8.40 (< 7 cm/sec) MED A' 11.50 cm/s E'/MED E' Ratio 7.50 (>14) LAT E' 9.30 (<10 cm/sec) LAT A' 7.70 cm/s E/LAT E' Ratio 6.77 (>14) Aortic Valve AI PHT 352.00 ms AO Peak GR. 6.50 mmHg Mitral Valve MV E Max Asif. 63.00 (40-130 cm/s) MV A Velocity 85.00 (40-130 cm/s) E/A Ratio 0.74 MV Decel. Time 150.00 (160-240 ms) MV PHT 44.00 ms Pulmonary Valve PV Peak Velocity 102.00 (50-150 cm/s) Tricuspid Valve TR P. Velocity 206.00 cm/s RAP Estimate 10.00 mmHg RVSP 27.00 mmHg Left Ventricle Left atrium is mildly enlarged, left ventricle is normal size, mild concentric left ventricular hypertrophy, estimated ejection fraction 55% with no regional wall motion abnormality, grade 1 diastolic dysfunction seen without tissue Doppler evidence of raise left atrial pressure. Right Ventricle Right atrium and right ventricle are normal size and contractility. Aortic Valve Aortic valve is thickened and calcified without aortic stenosis aortic insufficiency. Mitral Valve Mitral valve is grossly normal, there is trace mitral regurgitation. Tricuspid Valve Tricuspid grossly normal, there is trace tricuspid regurgitation, tricuspid regurgitation jet velocity is inadequate for calculation of the right ventricular systolic pressure. Pulmonic Valve Pulmonic valve is poorly visualized. Great Vessels Aortic root is normal size. Inferior vena cava is poorly visualized. Pericardium No significant pericardial effusion noted. Conclusion 1. Mildly enlarged left atrium, normal left ventricular size, mild concentric left ventricular hypertrophy, estimated ejection fraction 55% with no regional wall motion abnormality, grade 1 diastolic dysfunction seen without tissue Doppler evidence of raise left atrial pressure. 2. Thickened and calcified aortic valve without aortic stenosis aortic insufficiency. 3. Trace mitral and tricuspid regurgitation. 4. No significant pericardial effusion noted. 5. Inferior vena cava normal size with normal inspiratory collapse. Electronically signed by : Víctor Arenas MD 02/27/2022 13:18:11
--- NOTE | 2022-02-27 09:23 | CA_ITS ---
FINAL REPORT TECHNIQUE: Grayscale, color Doppler and duplex Doppler ultrasound of the kidneys, aorta and renal arteries was performed. Multiple velocities were measured. CLINICAL HISTORY: malignant htn FINDINGS: Aorta velocity: 120 cm/sec Right kidney: 12.1 cm. No evidence of hydronephrosis or mass. Right intrarenal RI: 0.57 Right renal artery velocity: 130 cm/sec. Right RAR (Renal artery-Aortic Ratio): 1.1 Left Kidney: 11.9 cm. No evidence of hydronephrosis or mass. Left intrarenal RI: 0.70 Left renal artery velocity: 171 cm/sec. Left RAR (Renal Artery-Aortic Ratio): 1.4 IMPRESSION: No evidence of significant renal artery stenosis. CT angiogram or postcontrast MR angiogram would be more sensitive for evaluation of possible renal artery stenosis. Reviewed, Interpreted and Dictated by Saud Branch III, MD Transcribed by Vini Kwan Authenticated and [facility]
--- NOTE | 2022-02-27 10:03 | HMH.HP ---
*Admission Date: 02/27/22 *History of present illness: PT TO ED WITH C/O INCREASED B/P TODAY. WEAKNESS, HEADACHE AND DIZZINESS. DENIES PAIN OR SOA uncontrolled elev bp, weakness, frontal palma HMH History Medical History: Reports:: Anxiety, Cancer, Coronary Artery Disease, Diabetes Mellitus Type 1, Diabetes Mellitus Type 2, Gastroesophageal Reflux Disease(GERD), Hyperlipidemia, Hypertension, Internal Pacemaker Denies:: MRSA, Seizures *Have you ever received a pneumonia vaccine?: Yes *Have you received a flu vaccine this season?: Yes Other Medical History: Reports: Arthritis, Hypothyroidism Laterality Cases: Bilateral: Myringotomy (Ear Tubes) Other Surgeries: Yes: Cancer Surgery, Cardiac Catheterization, Colonoscopy, Colon Resection, Colostomy, Coronary Stent, Pacemaker, Other Amputation: No Fractures: No - *Social History Last grade of school completed: 9th or 10th Smoking Status: Former smoker # Packs/Day (cigarettes): 2 #Yrs smoked (if former smoker): 12 Alcohol Intake: never Alcohol Intake Frequency:: other Substance Use Type: denies use *Occupational Status:: retired Housing: house Household Members: spouse *Travel in the last 8 weeks: None - Psychiatric History Pschychiatric History:: Reports:: Anxiety Family Hx:: Diabetes, Hyperlipidemia, Hypertension Meds Home Medications Medication Instructions Recorded Confirmed Type aspirin 81 mg chewable tablet 81 mg PO DAILY #90 tab 10/28/18 02/26/22 Rx insulin NPH-regular 70-30 U-100 10 unit SQ HS #15 ml 10/28/18 02/26/22 Rx insulin 100 unit/mL subcutaneous pen metoprolol succinate 25 mg 25 mg PO DAILY #90 tab 10/28/18 02/27/22 Rx tablet,extended release 24 hr clonazepam 0.5 mg tablet 0.5 mg PO DAILY #30 tab 01/26/22 02/26/22 Rx Atorvastatin Calcium [Lipitor 20mg 20 mg PO HS 02/26/22 02/27/22 History Tab] Cetirizine HCl 10 mg PO DAILY 02/26/22 02/26/22 History Empagliflozin [Jardiance] 25 tab PO DAILY 02/26/22 02/26/22 History Fluticasone Propionate 1 spray NS DAILY 02/26/22 02/27/22 History Levothyroxine Sodium [Synthroid 112 mcg PO DAILYDM 02/26/22 02/27/22 History 112mcg (0.112mg) tablet] Metformin HCl 500 mg PO BIDWMEAL 02/26/22 02/27/22 History Omeprazole 40 mg PO DAILY 02/26/22 02/27/22 History Sertraline HCl [Zoloft] 100 mg PO DAILY 02/26/22 02/27/22 History Ticagrelor [Brilinta 90mg 90 mg PO BID 02/26/22 02/27/22 History Tablet] glipiZIDE [Glipizide ER] 5 mg PO DAILYDM 02/26/22 02/27/22 History lisinopriL [Lisinopril] 5 mg PO DAILY 02/26/22 02/27/22 History Allergies Allergy/AdvReac Type Severity Reaction Status Date / Time penicillin V [PENICILLIN V] Allergy Unknown Verified 01/26/22 14:16 Penicillins [PENICILLINS] Allergy Unknown Verified 01/26/22 14:16 Exam Vital signs and Labs for Last 24 Hours: Temp Pulse Resp BP Pulse Ox 98.4 F 71 18 168/99 H 95 02/27/22 08:00 02/27/22 08:00 02/27/22 08:00 02/27/22 08:00 02/27/22 08:00 Laboratory Results - last 24 hr 02/26/22 18:35: WBC 10.0, RBC 5.25, Hgb 13.3 L, Hct 41.6 L, MCV 79.2 L, MCH 25.3 L, MCHC 31.9, RDW 16.0, Plt Count 428 H, MPV 8.0, Neut % (Auto) 61.3, Lymph % (Auto) 17.2, [place] % (Auto) 9.0, Eos % (Auto) 10.5, Baso % (Auto) 1.9, Neut # (Auto) 6.1, Lymph # (Auto) 1.7, [place] # (Auto) 0.9, Eos # (Auto) 1.1 H, Baso # (Auto) 0.2 02/26/22 18:35: Sodium 140, Potassium 4.0, Chloride 105, Carbon Dioxide 24, Anion Gap 15.0, BUN 14, Creatinine 0.80, Estimated Creat Clear 103, Estimated GFR 97, Est GFR ( Amer) 117, Glucose 196 H, Calcium 9.5 02/26/22 18:35: Troponin I < 0.01 02/26/22 20:18: SARS-CoV-2 (PCR) Not detected, Influenza A Untype (PCR) Not detected, Influenza Type B (PCR) Not detected 02/26/22 20:23: POC Glucose 183 H 02/26/22 20:53: Troponin I < 0.01 02/26/22 22:13: POC Glucose 184 H 02/27/22 00:40: Troponin I < 0.01 02/27/22 05:31: POC Glucose 169 H I & O for Last 24 hours: Intake & Output 02/24/22 02/25/22 02/26/22 02/27/22 23:59 23
--- NOTE | 2022-02-27 10:42 | HMH.CNCARD ---
History of Present Illness Consult date: 02/27/22 Requesting physician: Bishop Benjamin Consult reason: chest pain Chief complaint: chest pain History of present illness: This is a 66-year-old white gentleman who presented to the emergency department with complaints of increased blood pressure, headache, dizziness and chest pain. The patient states that he has been dealing with high blood pressure since last month. His primary care provider wanted him to see cardiology to have meds adjusted last month but the patient stated that his blood pressure was only high because he was eating a lot of crackers with the salt. His states that his blood pressure had been under pretty good control until approximately 2 days ago when his blood pressure began elevating. His blood pressure was in the 200s systolic and he had associated headache and dizziness. Yesterday he started to have burning and pressure in the substernal aspect of his chest. He states that this did not radiate. He was also somewhat short of breath as well. The patient came to the emergency department and once he had improvement in his blood pressure his chest pain and dizziness have went away. He still has a headache intermittently. The patient has ruled out for an TN. He denies any chest pain or pressure this morning. He denies any shortness of breath or edema. He denies any fever, chills, nausea, vomiting, diarrhea, PND or orthopnea. The patient does have a history of coronary artery disease with stenting back in 2018. He has not followed with cardiology since that time. [facility] History I have reviewed the patient's past medical history: Yes Medical History: Reports:: Anxiety, Cancer, Coronary Artery Disease, Diabetes Mellitus Type 1, Diabetes Mellitus Type 2, Gastroesophageal Reflux Disease(GERD), Hyperlipidemia, Hypertension, Internal Pacemaker Denies:: MRSA, Seizures *Have you ever received a pneumonia vaccine?: Yes *Have you received a flu vaccine this season?: Yes Other Medical History: Reports: Arthritis, Hypothyroidism Laterality Cases: Bilateral: Myringotomy (Ear Tubes) Other Surgeries: Yes: Cancer Surgery, Cardiac Catheterization, Colonoscopy, Colon Resection, Colostomy, Coronary Stent, Pacemaker, Other Amputation: No Fractures: No - *Social History Last grade of school completed: 9th or 10th Smoking Status: Former smoker # Packs/Day (cigarettes): 2 #Yrs smoked (if former smoker): 12 Alcohol Intake: never Alcohol Intake Frequency:: other Substance Use Type: denies use *Occupational Status:: retired Housing: house Household Members: spouse *Travel in the last 8 weeks: None - Psychiatric History Pschychiatric History:: Reports:: Anxiety Family Hx:: Diabetes, Hyperlipidemia, Hypertension Meds Home Medications Medication Instructions Recorded Confirmed Type aspirin 81 mg chewable tablet 81 mg PO DAILY #90 tab 10/28/18 02/26/22 Rx insulin NPH-regular 70-30 U-100 10 unit SQ HS #15 ml 10/28/18 02/26/22 Rx insulin 100 unit/mL subcutaneous pen metoprolol succinate 25 mg 25 mg PO DAILY #90 tab 10/28/18 02/27/22 Rx tablet,extended release 24 hr clonazepam 0.5 mg tablet 0.5 mg PO DAILY #30 tab 01/26/22 02/26/22 Rx Atorvastatin Calcium [Lipitor 20mg 20 mg PO HS 02/26/22 02/27/22 History Tab] Cetirizine HCl 10 mg PO DAILY 02/26/22 02/26/22 History Empagliflozin [Jardiance] 25 tab PO DAILY 02/26/22 02/26/22 History Fluticasone Propionate 1 spray NS DAILY 02/26/22 02/27/22 History Levothyroxine Sodium [Synthroid 112 mcg PO DAILYDM 02/26/22 02/27/22 History 112mcg (0.112mg) tablet] Metformin HCl 500 mg PO BIDWMEAL 02/26/22 02/27/22 History Omeprazole 40 mg PO DAILY 02/26/22 02/27/22 History Sertraline HCl [Zoloft] 100 mg PO DAILY 02/26/22 02/27/22 History Ticagrelor [Brilinta 90mg 90 mg PO BID 02/26/22 02/27/22 History Tablet] glipiZIDE [Glipizide ER] 5 mg PO DAILYDM 02/26/22 02/27/22 History lisinopriL [Lisinopril] 5 mg PO DAILY 02/26/22
--- NOTE | 2022-02-27 11:39 | HMH.HPDC ---
General - General Admission date:: 02/26/22 Discharge date: 02/27/22 *Admission Date: 02/27/22 *Chief complaint: Chest pain *History of present illness: 66-year-old male patient presented to the [facility] emergency department with reports of increased blood pressure, dizziness, headache, and chest pain. Patient has been reporting elevated blood pressure for the past month and his primary care physician wanted him to see cardiology but patient reports that his blood pressure was only high because he was eating a lot of crackers with salt. His states his blood pressure was under control until 2 days ago when blood pressure started to increase. She reports his blood pressure was in the 200s systolic and he reported headache and dizziness. He also started having pressure and burning in his chest he denies any radiation with this but he was short of breath. After his blood pressure increased he reports chest pain disappeared along with his dizziness. He still reports of headache off/on. He does have record of stents in 2018 and has not followed up with cardiology since. [facility] History I have reviewed the patient's past medical history: Yes Medical History: Reports:: Anxiety, Cancer, Coronary Artery Disease, Diabetes Mellitus Type 1, Diabetes Mellitus Type 2, Gastroesophageal Reflux Disease(GERD), Hyperlipidemia, Hypertension, Internal Pacemaker Denies:: MRSA, Seizures *Have you ever received a pneumonia vaccine?: Yes *Have you received a flu vaccine this season?: Yes Other Medical History: Reports: Arthritis, Hypothyroidism Laterality Cases: Bilateral: Myringotomy (Ear Tubes) Other Surgeries: Yes: Cancer Surgery, Cardiac Catheterization, Colonoscopy, Colon Resection, Colostomy, Coronary Stent, Pacemaker, Other Amputation: No Fractures: No - *Social History Last grade of school completed: 9th or 10th Smoking Status: Former smoker # Packs/Day (cigarettes): 2 #Yrs smoked (if former smoker): 12 Alcohol Intake: never Alcohol Intake Frequency:: other Substance Use Type: denies use *Occupational Status:: retired Housing: house Household Members: spouse *Travel in the last 8 weeks: None - Psychiatric History Pschychiatric History:: Reports:: Anxiety Family Hx:: Diabetes, Hyperlipidemia, Hypertension Review of Systems - Review of Systems Review of systems:: pertinent systems reviewed and negative unless documented below - Constitutional Reports lack of energy, Denies chills - Eyes Denies blurry vision, Denies double vision - ENT Reports dizziness, Reports headache(s), Reports dizziness, Denies ear pain - *Cardiovascular Reports chest pain, Reports chest pain at rest, Reports chest pain with activity, Reports shortness of breath, Reports shortness of breath with activity - *Respiratory Reports shortness of breath, Reports shortness of breath with activity - *Gastrointestinal Denies abdominal pain, Denies change in stools - *Musculoskeletal Denies joint pain, Denies back pain - Integumentary/Breasts Denies change in skin color, Denies changing lesions - *Neurologic Reports headache(s), Reports dizziness, Reports weakness, Denies confusion - Psychiatric Denies hearing things others do not hear, Denies confusion - Endocrine Denies cold intolerance, Denies increased thirst - Hematologic/Lymphatic Denies easy bleeding, Denies easy bruising - Allergic/Immunologic Denies GI upset with certain foods, Denies tongue swelling Exam Vital signs and Labs for Last 24 Hours: Temp Pulse Resp BP Pulse Ox 98.4 F 71 18 168/93 H 95 02/27/22 08:00 02/27/22 08:00 02/27/22 08:00 02/27/22 11:00 02/27/22 08:00 Laboratory Results - last 24 hr 02/26/22 18:35: WBC 10.0, RBC 5.25, Hgb 13.3 L, Hct 41.6 L, MCV 79.2 L, MCH 25.3 L, MCHC 31.9, RDW 16.0, Plt Count 428 H, MPV 8.0, Neut % (Auto) 61.3, Lymph % (Auto) 17.2, [place] % (Auto) 9.0, Eos % (Auto) 10.5, Baso % (Auto) 1.9, Neut # (Auto) 6.1, Lymph
--- NOTE | 2022-02-27 12:12 | PC.NURSE ---
0830 MORNING ROUNDS DONE WITH MD. PATIENT IS UP IN BED WITH FAMILY AT BEDSIDE. WAITING ON CARDIOLOGY CONSULT. MD STATING PATIENT COULD BE A POSSIBLE DISCHARGE THIS SHIFT DEPENDENT ON CARDIOLOGY PLAN. 1030 ROUNDED ON PATIENT WITH BIENVEN[facility]O [facility]. WENT OVER MEDICATIONS ADMINISTERED THIS MORNING WITH PATIENT AND HE HAD NO CONCERNS OR QUESTIONS WITH THOSE. ONLY COMPLAINT WAS OF A HEADACHE AND PATIENT HAD JUST BEEN GIVEN MEDICATION PER THE MAR FOR THE HEADACHE. OFFERED TOILETING. CARDIOLOGY HAD ROUNDED BUT WAITING ON THEIR PLAN BEFORE OFFERING NOURISHMENT. PATIENT VOICED NO CONCERNS OR COMPLAINTS. EDUCATED TRANSPORTATION SALES CONSULTANT LIGHT AND TO RING WITH ANY NEEDS.
--- NOTE | 2022-02-27 12:37 | PC.NURSE ---
Educated patient on new medication amlodipine added for blood pressure control.
--- NOTE | 2022-02-27 13:37 | PC.NURSE ---
Patient stated he was not feeling well. Blood pressure taken and found to be increasing despite blood pressure medication. Patient stated he did not feel well for discharge. Derrick Araya called. Refining Equipment Operator said she will have Derrick call me back.
--- NOTE | 2022-02-27 14:18 | PC.NURSE ---
Dr. Marie returned phone call, stated to hold discharge for now until Derrick Araya spoke to myself.
--- NOTE | 2022-02-27 18:40 | PC.NURSE ---
Patient to be discharged today. However, when pharmacist went to talk to patient about medication changes the patient stated he did not feel good. Pharmacists notified this nurse and I then assessed patient. Vital taken and found systolic to be between 190's and 200's. Primary care office notified and extra dose of lisinopril given. Patient still not feeling good and blood pressure still 170's. Derrick Araya notified and order for vasotec received. Vasotec given to patient and blood pressure still 185/99. Dr. Marie paged as he was economic developer for Dr. Benjamin and labetalol ordered and given. Awaiting to reassess blood pressure.
[2022-02-28] VITALS: BP 169/90; PULSE 70; RESP 17; TEMP 37.2; O2SAT 94
[2022-02-28 04:00] VITALS: BP 142/80; PULSE 60; PULSE 68; RESP 17; TEMP 36.9; O2SAT 96
--- NOTE | 2022-02-28 04:38 | PC.NURSE ---
Patient rested well throughout shift. Patient states he feels much better, no complaints of pain noted. B/p has been slightly elevated but much improved form earlier today.
[2022-02-28 05:11] VITALS: BMI 31.1
[2022-02-28 06:06] LABS: POC Glucose,Bedside 225 (70-110)
[2022-02-28 08:00] VITALS: BP 127/66; PULSE 76; PULSE 83; RESP 20; TEMP 37.1; O2SAT 94
[2022-02-28 12:00] VITALS: BP 149/71; PULSE 71; PULSE 88; RESP 20; TEMP 36.9; O2SAT 95
--- NOTE | 2022-02-28 12:13 | HMH.ACPN2 ---
Internal Medicine - PN: Subj *Date: 02/28/22 *Time: 12:14 Interval history: marked rise in bp delayed discharge received labetelol x 1 decent pressures overnight feels good this am Exam Vital signs and Labs for Last 24 Hours: Temp Pulse Resp BP Pulse Ox 98.7 F 83 20 127/66 94 L 02/28/22 08:00 02/28/22 08:00 02/28/22 08:00 02/28/22 08:00 02/28/22 08:00 Laboratory Results - last 24 hr 02/28/22 05:39: POC Glucose 225 H I & O for Last 24 hours: Intake & Output 02/25/22 02/26/22 02/27/22 02/28/22 23:59 23:59 23:59 23:59 Intake Total 1444 / 1444 720 / 720 Balance 1444 / 1444 720 / 720 Weight 214 lb 2 oz 213 lb 13.574 oz 210 lb - Constitutional no acute distress - *Routine HEENT Exam Head: Present: normocephalic Eye: Present: EOMI ENT: Present: mucous membranes moist - *Routine Neck Exam Comments: trach - *Routine Respiratory Exam Present: CTA bilaterally - *Routine Cardiovascular Exam Present: RRR - *Routine Abdominal Exam Present: soft, normoactive bowel sounds. Absent: tenderness - *Routine Extremities Exam Absent: cyanosis, clubbing, edema - *Routine Skin Exam Present: warm. Absent: rash - *Routine Neurological Exam Present: alert, oriented X3 Assessment and Plan (1) Uncontrolled hypertension Status: Acute Category: Medical Code(s): I10 - Essential (primary) hypertension (2) Coronary artery disease Status: Chronic Qualifiers: Coronary Disease-Associated Artery/Lesion type: [place] artery [place] vs. transplanted heart: [place] heart Associated angina: with other forms of angina Qualified Code(s): I25.118 - Atherosclerotic heart disease of [place] coronary artery with other forms of angina pectoris Category: Medical Code(s): I25.10 - Atherosclerotic heart disease of [place] coronary artery without angina pectoris (3) Weakness Status: Acute Category: Medical Code(s): R53.1 - Weakness (4) Diabetes mellitus Status: Chronic Qualifiers: Diabetes mellitus type: type 2 Diabetes mellitus termite control service representative insulin use: with alf use Diabetes mellitus complication status: with neurologic complications Diabetes mellitus complication detail: with polyneuropathy Qualified Code(s): E11.42 - Type 2 diabetes mellitus with diabetic polyneuropathy Category: Medical Code(s): E11.9 - Type 2 diabetes mellitus without complications (5) Hx of tracheostomy Status: Chronic Category: Surgical Code(s): Z98.890 - Other specified postprocedural states (6) Hyperlipidemia Status: Chronic Qualifiers: Hyperlipidemia type: mixed hyperlipidemia Qualified Code(s): E78.2 - Mixed hyperlipidemia Category: Medical Code(s): E78.5 - Hyperlipidemia, unspecified (7) Hypertensive disorder Status: Chronic Qualifiers: Hypertension type: essential hypertension Category: Medical Code(s): I10 - Essential (primary) hypertension (8) Stented coronary artery Status: Chronic Category: Surgical Code(s): Z95.5 - Presence of coronary angioplasty implant and graft - Assessment and plan all Dx Assessment and Plan for all problems:: Will uptitrate patient's Toprol from 25 to 50 mg daily while continuing his lisinopril. I will follow him in the office and we can up or down titrate further as indicated they were instructed to call Wednesday for a follow-up early in the week.
--- NOTE | 2022-03-04 15:37 | CARE MANAGER ---
Contacted patient's related to hospital discharge. She states that he is doing well, but that he is tired. They picked up his medication and are aware of his appointments. She denies any questions or concerns.
== END 2022-02-28 13:50 | disposition home or self-care (01) ==
LOC: ER 19:42 → 2ND 20:58
PROVIDERS: Admitting Provider Emergency Medicine; Emergency Provider Emergency Medicine; Visit Provider Emergency Medicine
DX: R07.9 Chest pain, unspecified (principal); I25.118 Atherosclerotic heart disease of native coronary artery with other forms of angina pectoris; E11.9 Type 2 diabetes mellitus without complications; Z79.4 Long term (current) use of insulin; K21.9 Gastro-esophageal reflux disease without esophagitis; Z87.891 Personal history of nicotine dependence; E78.5 Hyperlipidemia, unspecified; Z95.0 Presence of cardiac pacemaker; E03.9 Hypothyroidism, unspecified; I10 Essential (primary) hypertension; Z95.5 Presence of coronary angioplasty implant and graft; Z79.01 Long term (current) use of anticoagulants; Z79.899 Other long term (current) drug therapy; Z20.822 Contact with and (suspected) exposure to COVID-19
CPT/HCPCS: G0378; 71045; 80048; 82962; 84484; 85025; 93005; 93306; 93976; 99285; C9803; U0003; U0005

== ENCOUNTER → 2022-03-20 06:03 | Outpatient (CLI) | payer MEDICARE, SELFPAY ==
--- NOTE | 2022-03-20 06:04 | CA_ITS ---
APPROVED REPORT Exam: Exercise Treadmill Technologist: Susi Malik, Ht: 5 ft 8 in Wt: 218 lbs BSA: 2.12 m2 HR: 74 bpm BP: 155/88 mmHg Rhythm: NSR, inferior ST-T abnormalities Medical History Medical History: HTN, Hyperlipidemia Medications: Lisinopril,,,,, Levothyroxine,,,,, Aspirin,,,,, Metoprolol,,,,, Metformin,,,,, Atorvastatin,,,,, Glipizide,,,,, ClonAZEPAM,,,,, INSULIN,,,,, CetIRIZINE,,,,, TicaAGRELOR,,,,, EMpagliflozin,,,,, Cardiac Risk Factors: Hyperlipidemia, HTN Stress Test Details Test: Manual Treadmill HR Resting HR: 83 bpm Max Heart Rate (APMHR): 154.376770 bpm Max HR Achieved: 138 bpm Target HR (85% APMHR): 130.331304 bpm % of APMHR: 89.61 Recovery HR: 128 bpm BP Resting BP: 141/86 mmHg Max BP: 204/99 mmHg Recovery BP: 179.0/100.0 mmHg ECG Resting ECG: NSR, inferior ST-T abnormalities Clinical Reason for Termination: Dyspnea Chest pain Leg Pain Exercise duration: 04:30 min Highest Stage Achieved: Exercise capacity: 6.1 METs Stress ECG Conclusion During santhosh protocol pt walked total of 4:30. 6.1 METS. Pt experinced slight chest pain. Occasional PVCs noted. <1.5mm ST segment changes. Abnormal, non-diagnostic due to baseline abnormal EKG. Test Summary REST . . . . . . . Sitting REST . . . . . . . Standing REST 09:28 0.0 1.2 83 . 141/ 86 . . Stage 1 01:00 10.0 1.7 102 . . . . Stage 1 02:00 10.0 1.7 119 . . . . Stage 1 03:00 10.0 1.7 127 . 152/ 91 . . Stage 2 . . . . . . . Protocol changed to Manual Treadmill Stage 2 01:00 12.0 2.1 135 . . . . Stage 2 01:30 0.0 2.0 137 . . . Stop exercise at 04:30 RECOVERY 01:00 0.0 0.0 127 . 179/100 . . RECOVERY 02:00 0.0 0.0 120 . 179/100 . . RECOVERY 03:00 0.0 0.0 109 . 204/ 99 . . RECOVERY 04:00 0.0 0.0 105 . 204/ 99 . . RECOVERY 05:00 0.0 0.0 101 . 168/ 97 . . RECOVERY 06:00 0.0 0.0 100 . 168/ 97 . . RECOVERY 07:00 0.0 0.0 0 . 168/ 97 . . RECOVERY 07:26 0.0 0.0 0 . 168/ 97 . . Electronically signed by : Víctor Arenas MD 03/20/2022 13:12:30
--- NOTE | 2022-03-20 06:04 | NM_ITS ---
APPROVED REPORT Exam: Nuclear Stress Test Indication: CAD, HX.NY, HTN, DM, HYPERLIPIDEMIA, SOB Patient Location: Outpatient Stress Tech: Susi CHAPA Tech:JOSE ROBERTO Ni RT (R)(N)(M) Ht: 5 ft 9 in Wt: 220 lbs HR: 74 bpm BP: 155/88 mmHg BSA: 2.15 m2 TID: 1.01 BMI: 32.4 History: CAD, HX.NY, HTN, DM, HYPERLIPIDEMIA, SOB Procedure: Patient exercised on Gabe protocol 4:30 minutes and sec, resting heart rate 74 bpm, resting blood pressure 155/88 mmHg, with exercise maximum heart rate achived was 138 bpm which is 104 % of the maximum predicted heart rate and blood pressure was 204/99 mmHg. Test was stopped due to LEG FATIGUE. Patient has Adequate exercise capacity, achieved 6.1 METs of workload on treadmill, the blood pressure response to exercise was Hypertensive. Electrocardiogram Resting electrocardiogram shows sinus rhythm nonspecific ST-T changes, with exercise there is less than 1.[address] segment depression noted from the baseline EKG. The EKG portion of the exercise Myoview was nondiagnostic due to baseline abnormal EKG. Cardiac Stress and Resting SPECT Images: Cardiac Stress and Resting SPECT images were obtained using technetium 99m Myoview 31.0 mCi stress and 10.86 mCi at rest. Gated SPECT for analysis of segmental wall motion and calculation of the ejection fraction also done. Prone images were also obtained. Cardiac stress and rest SPECT images show uniform myocardial activity without segmental perfusion abnormality, computer derived ejection fraction is 54% with no regional wall motion abnormality, right ventricle is normal size and contractility. Conclusion: 1. The EKG portion of the exercise Myoview is nondiagnostic due to baseline abnormal EKG, patient has adequate exercise capacity achieved 6.1 METs of workload on treadmill, the blood pressure response to exercise was hypertensive, patient complained of chest tightness with exercise. 2. No scintigraphic evidence of reversible ischemia seen at this level of exercise, computer derived ejection fraction is 54% with no regional wall motion abnormality, right ventricle is normal size and contractility. Electronically signed by : Víctor Arenas MD 03/20/2022 13:14:50
== END ==
LOC: RAD 06:04
PROVIDERS: PCP Nurse Practitioner Family; Visit Provider Nurse Practitioner Family
DX: E11.9 Type 2 diabetes mellitus without complications (principal); E78.5 Hyperlipidemia, unspecified; I10 Essential (primary) hypertension; I25.10 Atherosclerotic heart disease of native coronary artery without angina pectoris; Z95.5 Presence of coronary angioplasty implant and graft; R06.09 Other forms of dyspnea; R94.31 Abnormal electrocardiogram [ECG] [EKG]; Z79.4 Long term (current) use of insulin
CPT/HCPCS: 78452; 93017; A9502

== ENCOUNTER 2022-07-25 09:20 | Emergency (ER) | payer MEDICARE, SELFPAY ==
[2022-07-25 09:39] VITALS: BP 173/95; PULSE 119; RESP 16; TEMP 37.2; O2SAT 97; BMI 32.5
--- NOTE | 2022-07-25 09:54 | EXP.UTC ---
Discharge Plan Disposition Patient Disposition: Home, Self-Care Condition: Good Prescriptions Prescriptions: New ofloxacin 0.3 % drops See Rx Instructions .ROUTE .COMPLEX Qty: 5 0RF Rx Instructions: put 2 drps into affected eye every 2 h x 2 days, then 1 drps 4 times/day days 3-7 ibuprofen [ibuprofen] 600 mg tablet 600 mg PO Q6HP PRN (Reason: Mild Pain) Qty: 30 0RF No Action lisinopril 40 mg tablet 40 mg PO DAILY 90 Days Qty: 90 3RF metoprolol succinate 50 mg tablet extended release 24 hr 50 mg PO DAILY Qty: 90 3RF clonazepam 0.5 mg tablet 0.5 mg PO DAILY Qty: 30 5RF empagliflozin 25 mg tablet 25 mg PO DAILY Qty: 90 3RF ticagrelor 90 mg tablet 90 mg PO BID Qty: 180 3RF sertraline 100 mg tablet 100 mg PO DAILY Qty: 90 3RF omeprazole 40 mg capsule,delayed release(DR/EC) 40 mg PO DAILY Qty: 90 3RF levothyroxine 112 mcg tablet 112 mcg PO DAILYDM Qty: 90 3RF atorvastatin 20 mg tablet 20 mg PO HS Qty: 90 3RF metformin 1,000 mg tablet 1,000 mg PO DAILY Qty: 90 3RF cephalexin 250 mg capsule 250 mg PO Q12H Qty: 10 0RF tizanidine 2 mg tablet 2 mg PO Q8H PRN (Reason: muscle spasticity) Qty: 30 0RF Ozempic 0.25 mg or 0.5 mg(2 mg/1.5 mL) pen injector 0.25 mg SQ WEEKLY Qty: 1.5 2RF Rx Instructions: Take 0.25 mg once weekly for 4 weeks. Increase to 0.5 mg once weekly for 4 weeks. Increase to 1 mg once weekly. Please call clinic for instructions. aspirin 81 mg tablet,chewable 81 mg PO DAILY Qty: 90 0RF insulin NPH and regular human 100 unit/mL (70-30) insulin pen 10 unit SQ HS Qty: 15 2RF amlodipine 10 mg tablet 10 mg PO DAILY Qty: 90 3RF cetirizine 10 MG tablet 10 mg PO DAILY fluticasone propionate 16 GM spray,suspension 1 spray NS DAILY Rx Instructions: Instill 1 SPRAY IN EACH NOSTRIL EVERY DAY Referrals Follow up/Referrals: Bishop Benjamin MD [Primary Care Provider] - See instructions Activity Restrictions/Add. Instructions Additional Instructions/Restrictions: Use the eye drops as directed. [facility] up with the [facility] on Wednesday for a recheck of your eye. If you already see a different eye doctor then see your eye doctor instead. Follow up with your regular doctor. GO TO THE ER FOR ANY WORSENING SYMPTOMS OR CONCERNS Clinical Impressions Clinical Impression: Abrasion of cornea, left Instructions Patient Instructions: DI for Corneal Abrasion, Corneal Abrasion Discharge ED Provider: Thierry Bean [facility] General Stated complaint: left eye red and itching Mode of Arrival: Ambulatory Source of Information: Patient Limitations: No Limitations Time Seen by Provider: 07/25/22 09:53 Description of Symptoms (Recalled from Triage Doc. by RN): pt comes in with c/o left eye redness, drainage, irritation. pts states he got something in it about 2 weeks ago, they thought it was a piece of hay. symptoms have continued to get worse. HEENT Symptoms (Recalled from RN notes): Yes Resp Symptoms (Recalled from RN notes): No Skin Symptoms (Recalled from RN notes): No MS Symptoms (Recalled from RN notes): No Functional Status (Recalled from RN notes): n/a History of Present Illness Provider Complaint: He states that 2 weeks ago, he got some hay in his left eye. He thought he got it rinsed out good, but afterwards he started having left eye discomfort and discharge. Since then, his symptoms have continued. He states that he is seeing ok with the eye, but the discharge does cloud his vision at times. Related Data Home Medications Medication Instructions Recorded Confirmed cetirizine 10 mg tablet 10 mg PO DAILY allergies 02/26/22 05/07/22 fluticasone propionate 50 1 spray intranasal DAILY Allergy 02/26/22 05/07/22 mcg/actuation nasal symptoms spray,suspension Previous Rx's Medication Instructions Recorded aspirin 81 mg chewable tablet 81 mg PO DAILY
[2022-07-25 10:57] VITALS: BP 173/95; PULSE 119; RESP 16; TEMP 37.2
== END 2022-07-25 11:03 | disposition home or self-care (01) ==
PROVIDERS: Emergency Provider Nurse Practitioner Family; PCP Emergency Medicine
DX: S05.02XA Injury of conjunctiva and corneal abrasion without foreign body, left eye, initial encounter (principal); Z23 Encounter for immunization
CPT/HCPCS: 65205; 90471; 90714; 99213; G0463

== ENCOUNTER → 2022-08-05 15:07 | Outpatient (CLI) | payer MEDICARE, SELFPAY ==
[2022-08-05 16:32] LABS: Chloride 101 mmol/L (98-107); Potassium 4.5 mmoL/L (3.5-5.1); Sodium 138 mmol/L (136-145)
[2022-08-05 16:33] LABS: Basophils # 0.1 K/mm3 (0-0.2); Eosinophils # 0.8 K/mm3 (0.0-0.4); Eosinophils % 7.7 % (0.1-12.0); Hematocrit 45.9 % (42.0-52.0); Hemoglobin 13.9 g/dL (14.1-18.0); Lymphocytes # 1.3 K/mm3 (0.7-4.5); Lymphocytes % 12.8 % (10-50); Mean Corpuscular HGB Conc 30.2 g/dL (31.8-35.4); Mean Corpuscular Hemoglobin 25.7 pg (27.0-31.2); Mean Corpuscular Volume 85.2 fl (80-94); Mean Platelet Volume 9.8 fl (7.4-10.4); Monocytes # 0.8 K/mm3 (0.1-1.0); Monocytes % 8.1 % (1.7-9.3); Neutrophils % 70.4 % (37.0-80.0); Platelet Count 497 K/mm3 (142-424); Red Blood Count 5.39 M/mm3 (4.60-6.20); White Blood Count 9.9 K/mm3 (4.8-10.8)
[2022-08-05 16:34] LABS: Alanine Aminotransferase 28 U/L (12-78); Albumin Level 4.9 g/dl (3.5-5.0); Albumin/Globulin Ratio 1.5 (1.1-1.8); Alkaline Phosphatase 92 U/L (38-126); Aspartate Amino Transferase 33 U/L (17-59); Bilirubin,Total 0.6 mg/dl (0.2-1.3); Blood Urea Nitrogen 15 mg/dl (9-20); Estimated Glomerular Filt Rate 84 ml/min (>60); GFR (African American) 102 ML/MIN (>60); Globulin 3.3 g/dL (1.3-3.2); Total Protein,Serum 8.2 g/dl (6.3-8.2)
[2022-08-05 16:35] LABS: Anion Gap 16.5 mEq/L (5-15); Carbon Dioxide 25 mmol/L (22.0-30.0); Chol/HDL Ratio 3.5 (1-3.5); Cholesterol 171 mg/dl (140-200); Glucose 297 mg/dl (74-100); HDL Cholesterol 49 mg/dl (40-60); Triglycerides 211 mg/dl (30-150); VLDL Cholesterol 42 mg/dL (0-40)
[2022-08-05 16:46] LABS: Direct LDL Cholesterol 75.26 mg/dL (100-129)
[2022-08-05 16:58] LABS: Hemoglobin A1C 10.5 % (4.0-6.0)
[2022-08-05 17:06] LABS: Thyroid Stimulating Hormone 2.01 uIU/mL (0.465-4.68)
[2022-08-05 17:35] LABS: Creatinine,Urine Random 59 mg/dL (Not Estab.)
[2022-08-09 16:06] LABS: Peripheral Smear Review Scanned Result
== END ==
LOC: LAB.DROPOF 08-18 15:08
PROVIDERS: PCP Physician Assistant; Visit Provider Physician Assistant
DX: E11.42 Type 2 diabetes mellitus with diabetic polyneuropathy; R79.89 Other specified abnormal findings of blood chemistry; Z79.4 Long term (current) use of insulin
CPT/HCPCS: 80053; 80061; 82043; 82570; 83036; 84443; 85025

== ENCOUNTER → 2022-10-28 10:00 | Outpatient (CLI) | payer MEDICARE, SELFPAY ==
[2022-10-28 15:46] LABS: Basophils # 0.1 K/mm3 (0-0.2); Basophils % 0.6 % (0.1-2.0); Eosinophils # 0.8 K/mm3 (0.0-0.4); Eosinophils % 9.7 % (0.1-12.0); Hematocrit 42.5 % (42.0-52.0); Lymphocytes # 1.3 K/mm3 (0.7-4.5); Lymphocytes % 14.7 % (10-50); Mean Corpuscular HGB Conc 30.7 g/dL (31.8-35.4); Mean Corpuscular Hemoglobin 24.3 pg (27.0-31.2); Mean Corpuscular Volume 79.2 fl (80-94); Mean Platelet Volume 8.9 fl (7.4-10.4); Monocytes # 0.8 K/mm3 (0.1-1.0); Monocytes % 9.7 % (1.7-9.3); Neutrophils # 5.6 K/mm3 (1.8-7.8); Neutrophils % 65.3 % (37.0-80.0); Platelet Count 506 K/mm3 (142-424); Red Blood Count 5.36 M/mm3 (4.60-6.20); Red Cell Distribution Width 15.7 % (11.5-17.5); White Blood Count 8.5 K/mm3 (4.8-10.8)
[2022-10-28 16:42] LABS: Alanine Aminotransferase 37 U/L (12-78); Albumin Level 4.8 g/dl (3.5-5.0); Albumin/Globulin Ratio 1.5 (1.1-1.8); Alkaline Phosphatase 72 U/L (38-126); Anion Gap 10.6 mEq/L (5-15); Aspartate Amino Transferase 41 U/L (17-59); Bilirubin,Total 0.8 mg/dl (0.2-1.3); Blood Urea Nitrogen 17 mg/dl (9-20); Carbon Dioxide 26 mmol/L (22.0-30.0); Chloride 105 mmol/L (98-107); Chol/HDL Ratio 4.9 (1-3.5); Cholesterol 205 mg/dl (140-200); Estimated Glomerular Filt Rate 84 ml/min (>60); GFR (African American) 102 ML/MIN (>60); Globulin 3.2 g/dL (1.3-3.2); Glucose 229 mg/dl (74-100); HDL Cholesterol 42 mg/dl (40-60); Potassium 4.6 mmoL/L (3.5-5.1); Sodium 137 mmol/L (136-145); Triglycerides 180 mg/dl (30-150); VLDL Cholesterol 36 mg/dL (0-40)
[2022-10-28 16:52] LABS: Direct LDL Cholesterol 115.19 mg/dL (100-129)
[2022-10-28 17:00] LABS: 25-OH Vitamin D, Total 44.4 ng/mL (30-100)
[2022-10-28 17:12] LABS: Thyroid Stimulating Hormone 2.61 uIU/mL (0.465-4.68)
[2022-10-28 17:43] LABS: Hemoglobin A1C 9.7 % (4.0-6.0)
== END ==
LOC: LAB.DROPOF 15:41
PROVIDERS: PCP Physician Assistant; Visit Provider Physician Assistant
DX: E11.42 Type 2 diabetes mellitus with diabetic polyneuropathy (principal); Z12.5 Encounter for screening for malignant neoplasm of prostate; E55.9 Vitamin D deficiency, unspecified; Z79.4 Long term (current) use of insulin
CPT/HCPCS: 80053; 80061; 82306; 83036; 84443; 85025; G0103

== ENCOUNTER → 2023-01-20 23:09 | Outpatient (CLI) | payer MEDICARE, SELFPAY ==
[2023-01-20 18:51] LABS: Basophils # 0.1 K/mm3 (0-0.2); Basophils % 0.9 % (0.1-2.0); Eosinophils # 1.1 K/mm3 (0.0-0.4); Hematocrit 41.3 % (42.0-52.0); Hemoglobin 12.8 g/dL (14.1-18.0); Lymphocytes # 1.5 K/mm3 (0.7-4.5); Lymphocytes % 14.1 % (10-50); Mean Corpuscular HGB Conc 31.1 g/dL (31.8-35.4); Mean Corpuscular Hemoglobin 23.6 pg (27.0-31.2); Mean Corpuscular Volume 76.1 fl (80-94); Mean Platelet Volume 9.9 fl (7.4-10.4); Monocytes # 0.8 K/mm3 (0.1-1.0); Monocytes % 7.9 % (1.7-9.3); Neutrophils # 6.8 K/mm3 (1.8-7.8); Platelet Count 570 K/mm3 (142-424); Red Blood Count 5.43 M/mm3 (4.60-6.20); Red Cell Distribution Width 16.2 % (11.5-17.5); White Blood Count 10.4 K/mm3 (4.8-10.8)
[2023-01-20 19:07] LABS: Alanine Aminotransferase 40 U/L (12-78); Albumin Level 4.8 g/dl (3.5-5.0); Albumin/Globulin Ratio 1.5 (1.1-1.8); Alkaline Phosphatase 121 U/L (38-126); Anion Gap 22.8 mEq/L (5-15); Aspartate Amino Transferase 40 U/L (17-59); Bilirubin,Total 0.4 mg/dl (0.2-1.3); Blood Urea Nitrogen 16 mg/dl (9-20); Calcium 9.6 mg/dl (8.4-10.2); Carbon Dioxide 22 mmol/L (22.0-30.0); Chloride 96 mmol/L (98-107); Chol/HDL Ratio 4.9 (1-3.5); Cholesterol 229 mg/dl (140-200); Estimated Glomerular Filt Rate 84 ml/min (>60); GFR (African American) 102 ML/MIN (>60); Globulin 3.2 g/dL (1.3-3.2); Glucose 240 mg/dl (74-100); HDL Cholesterol 47 mg/dl (40-60); Potassium 4.8 mmoL/L (3.5-5.1); Sodium 136 mmol/L (136-145); Triglycerides 398 mg/dl (30-150); VLDL Cholesterol 80 mg/dL (0-40)
[2023-01-20 19:18] LABS: Direct LDL Cholesterol 130.47 mg/dL (100-129)
[2023-01-20 19:23] LABS: 25-OH Vitamin D, Total 36.5 ng/mL (30-100)
[2023-01-20 19:37] LABS: Thyroid Stimulating Hormone 4.29 uIU/mL (0.465-4.68)
[2023-01-20 20:30] LABS: Hemoglobin A1C 8.3 % (4.0-6.0)
== END ==
PROVIDERS: PCP Physician Assistant; Visit Provider Physician Assistant
DX: R94.39 Abnormal result of other cardiovascular function study (principal); E11.42 Type 2 diabetes mellitus with diabetic polyneuropathy; E03.9 Hypothyroidism, unspecified; E78.5 Hyperlipidemia, unspecified; I10 Essential (primary) hypertension; E55.9 Vitamin D deficiency, unspecified; Z79.4 Long term (current) use of insulin
CPT/HCPCS: 80053; 80061; 82043; 82306; 83036; 84443; 85025

== ENCOUNTER → 2023-03-25 11:27 | Outpatient (POV) | payer MEDICARE, SELFPAY | PROVIDERS: Visit Provider Specialist/Technologist | DX: Z00.00 Encounter for general adult medical examination without abnormal findings (principal) ==

== ENCOUNTER 2023-10-04 21:20 | Outpatient (CLI) | payer MEDICARE, SELFPAY ==
[2023-10-04 19:04] LABS: Basophils # 0.1 K/mm3 (0-0.2); Basophils % 0.7 % (0.1-2.0); Eosinophils # 0.4 K/mm3 (0.0-0.4); Eosinophils % 5.6 % (0.1-12.0); Hematocrit 42.8 % (42.0-52.0); Hemoglobin 13.8 g/dL (14.1-18.0); Lymphocytes # 1.4 K/mm3 (0.7-4.5); Lymphocytes % 19.7 % (10-50); Mean Corpuscular HGB Conc 32.2 g/dL (31.8-35.4); Mean Corpuscular Hemoglobin 25.1 pg (27.0-31.2); Mean Corpuscular Volume 77.9 fl (80-94); Mean Platelet Volume 9.3 fl (7.4-10.4); Monocytes # 0.7 K/mm3 (0.1-1.0); Monocytes % 9.5 % (1.7-9.3); Neutrophils # 4.5 K/mm3 (1.8-7.8); Neutrophils % 64.5 % (37.0-80.0); Platelet Count 382 K/mm3 (142-424); Red Blood Count 5.49 M/mm3 (4.60-6.20); Red Cell Distribution Width 16.6 % (11.5-17.5)
[2023-10-04 19:38] LABS: Alanine Aminotransferase 40 U/L (12-78); Albumin Level 4.9 g/dl (3.5-5.0); Albumin/Globulin Ratio 1.5 (1.1-1.8); Alkaline Phosphatase 84 U/L (38-126); Anion Gap 20.1 mEq/L (5-15); Aspartate Amino Transferase 47 U/L (17-59); Bilirubin,Total 0.5 mg/dl (0.2-1.3); Blood Urea Nitrogen 20 mg/dl (9-20); Calcium 10.3 mg/dl (8.4-10.2); Carbon Dioxide 23 mmol/L (22.0-30.0); Chloride 101 mmol/L (98-107); Chol/HDL Ratio 3.4 (1-3.5); Cholesterol 139 mg/dl (140-200); Estimated Glomerular Filt Rate 67 ml/min (>60); GFR (African American) 81 ML/MIN (>60); Globulin 3.3 g/dL (1.3-3.2); Glucose 147 mg/dl (74-100); HDL Cholesterol 41 mg/dl (40-60); Potassium 5.1 mmoL/L (3.5-5.1); Sodium 139 mmol/L (136-145); Total Protein,Serum 8.2 g/dl (6.3-8.2); Triglycerides 169 mg/dl (30-150); VLDL Cholesterol 34 mg/dL (0-40)
[2023-10-04 19:50] LABS: Direct LDL Cholesterol 68.11 mg/dL (100-129)
[2023-10-04 19:57] LABS: 25-OH Vitamin D, Total 60.8 ng/mL (30-100)
[2023-10-04 20:10] LABS: Thyroid Stimulating Hormone 2.51 uIU/mL (0.465-4.68)
[2023-10-04 20:29] LABS: Vitamin B12 519 pg/mL (239-931)
[2023-10-04 23:34] LABS: Hemoglobin A1C 9.2 % (4.0-6.0)
== END 2023-10-04 23:59 ==
LOC: LAB.DROPOF 21:21
PROVIDERS: PCP Family Medicine; Visit Provider Family Medicine
DX: I10 Essential (primary) hypertension (principal); I25.10 Atherosclerotic heart disease of native coronary artery without angina pectoris; E53.8 Deficiency of other specified B group vitamins; E55.9 Vitamin D deficiency, unspecified; C73 Malignant neoplasm of thyroid gland; E78.5 Hyperlipidemia, unspecified; E11.9 Type 2 diabetes mellitus without complications; Z79.84 Long term (current) use of oral hypoglycemic drugs
CPT/HCPCS: 80053; 80061; 82306; 82607; 83036; 84443; 85025

== ENCOUNTER 2024-04-24 12:29 | Emergency (ER) | payer MEDICARE, SELFPAY ==
[2024-04-24 12:30] VITALS: BP 177/99; PULSE 105; RESP 16; TEMP 36.7; O2SAT 97; BMI 32.8
--- NOTE | 2024-04-24 12:59 | CT_ITS ---
FINAL REPORT TECHNIQUE: After the administration of intravenous contrast, axial images were obtained through the abdomen and pelvis by computed tomography. This study was performed with technique to keep radiation doses as low as reasonably achievable, (ALARA). Individualized dose reduction techniques using automated exposure control or adjustment of the MA and/or KV according to the patient's size were employed. CLINICAL HISTORY: abd distention and ttp x 1 month FINDINGS: Abdomen: The lung bases are clear. There is mild fatty infiltration of the liver. Gallbladder is present.. The spleen is unremarkable. There are multiple adrenal nodules measuring up to 1.9 cm, some of which are adenomas. Others are nonspecific with a mean attenuation value of approximately 45 Hounsfield units. This can be further evaluated with adrenal mass protocol CT. The pancreas is unremarkable. The kidneys enhance appropriately. There is a retroaortic left renal vein noted. The aorta is normal in caliber. There is no free fluid or adenopathy. Pelvis: The appendix is not identified. There are postoperative changes seen in the colon in the left lower quadrant. There is moderate stool present. The urinary bladder is unremarkable. There is no free fluid or adenopathy. IMPRESSION: Nonspecific adrenal nodules. Consider adrenal mass protocol CT for further evaluation. Mild fatty infiltration of the liver. Reviewed, Interpreted and Dictated by John Brannon MD Transcribed by Katia Mustafa Authenticated and [facility]
[2024-04-24 13:00] VITALS: BP 177/99; PULSE 79; O2SAT 97
--- NOTE | 2024-04-24 13:03 | ED_ITS ---
Discharge Plan Disposition Patient Disposition: Home, Self-Care Prescriptions Prescriptions: New valacyclovir [Valtrex] 1 gram tablet 1,000 mg PO Q8H 7 Days Qty: 21 0RF gabapentin 300 mg capsule 300 mg PO .qhs PRN (Reason: Neuropathic pain) 14 Days Qty: 14 0RF No Action insulin NPH and regular human 100 unit/mL (70-30) insulin pen 20 unit SQ BID cefdinir 250 mg/5 mL suspension for reconstitution 300 mg PO BID 10 Days Qty: 120 0RF aspirin 81 mg tablet,chewable 81 mg PO DAILY Qty: 90 3RF tizanidine 2 mg tablet 2 mg PO Q8H PRN (Reason: muscle spasticity) Qty: 30 0RF Ozempic 1 mg/dose (4 mg/3 mL) pen injector 1 mg SQ WEEKLY Qty: 3 2RF clonazepam 1 mg tablet 0.5 mg PO DAILY Qty: 15 0RF metformin 1,000 mg tablet See Rx Instructions .ROUTE .COMPLEX Qty: 90 3RF Dose Instruction: TAKE ONE TABLET BY MOUTH TWICE DAILY Rx Instructions: TAKE ONE TABLET BY MOUTH TWICE DAILY atorvastatin 40 mg tablet See Rx Instructions .ROUTE .COMPLEX Qty: 90 3RF Dose Instruction: TAKE ONE TABLET BY MOUTH EVERY DAY Rx Instructions: TAKE ONE TABLET BY MOUTH EVERY DAY metoprolol succinate 50 mg tablet extended release 24 hr See Rx Instructions .ROUTE .COMPLEX Qty: 90 3RF Dose Instruction: TAKE ONE TABLET BY MOUTH EVERY DAY Rx Instructions: TAKE ONE TABLET BY MOUTH EVERY DAY lisinopril 40 mg tablet See Rx Instructions .ROUTE .COMPLEX Qty: 90 3RF Dose Instruction: TAKE ONE TABLET BY MOUTH EVERY DAY FOR BLOOD PRESSURE Rx Instructions: TAKE ONE TABLET BY MOUTH EVERY DAY FOR BLOOD PRESSURE levothyroxine 112 mcg tablet See Rx Instructions .ROUTE .COMPLEX Qty: 90 3RF Dose Instruction: TAKE ONE TABLET BY MOUTH EVERY DAY AT 7:00AM FOR LOW THYROID LEVELS Rx Instructions: TAKE ONE TABLET BY MOUTH EVERY DAY AT 7:00AM FOR LOW THYROID LEVELS omeprazole 40 mg capsule,delayed release(DR/EC) See Rx Instructions .ROUTE .COMPLEX Qty: 90 3RF Dose Instruction: TAKE ONE CAPSULE BY MOUTH EVERY DAY FOR acid reflux Rx Instructions: TAKE ONE CAPSULE BY MOUTH EVERY DAY FOR acid reflux sertraline 100 mg tablet See Rx Instructions .ROUTE .COMPLEX Qty: 90 3RF Dose Instruction: TAKE ONE TABLET BY MOUTH EVERY DAY FOR depression Rx Instructions: TAKE ONE TABLET BY MOUTH EVERY DAY FOR depression amlodipine 10 mg tablet See Rx Instructions .ROUTE .COMPLEX Qty: 90 3RF Dose Instruction: TAKE ONE TABLET BY MOUTH EVERY DAY Rx Instructions: TAKE ONE TABLET BY MOUTH EVERY DAY Referrals Follow up/Referrals: Krystina Zacarias PA [Primary Care Provider] - See instructions Activity Restrictions/Add. Instructions Additional Instructions/Restrictions: No surgical emergency or significant abnormality noted on your labs or CT scan. There is a large amount of stool in the location where you are having abdominal discomfort in your chronic pain leading up to the presentation of your shingles may be secondary to constipation. I recommend that you take daily MiraLAX and escalating the dose until you are having soft bowel movements daily. Regarding the shingles you have been prescribed an antiviral medication as well as pain medication for neuropathic discomfort. Please follow-up with your primary care doctor to discuss further management of this. Also please note that you have some nonspecific adrenal nodules and radiology recommends that you get a adrenal mass protocol in an outpatient setting for further evaluation of this this is nonspecific. Clinical Impressions Clinical Impression: Herpes zoster, Abdominal pain, Abdominal distension, Adrenal nodule, Fatty liver Instructions Patient Instructions: DI for Shingles Print Language Print Language: [place] Discharge ED Provider: Erna Luna General Adult HPI General Chief complaint: Abdominal Pain Stated complaint: abd pain L side and lower back, Time Seen by Provider: 04/24/24 12:52 Mode of Arrival: Ambulatory Source of Information: Patient and Spouse Limitations: No Limitations Description of Symptoms (Recalled from ER Triage Doc. by RN): Reports rash on the left side of his abdomen, distention of his abdomen and pain all over his abdomen that started 3 days ago. History of Present Illness HPI narrative: Patient is a 68-year-old male presented with multiple complaints. His first complaint is a rash over the anterior lateral aspect of the left side of his abdominal wall that feels like he is on fire. Additionally he states she has had worsening abdominal pain and distention over the last month. Has had extensive surgical problems in the past including perforated diverticula ostomy placement and reversal feeding tubes etc. Also has a history of laryngeal cancer status post laryngectomy is in remission currently. Related Data Home Medications ?Medication ?Instructions ?Recorded ?Confirmed insulin NPH-regular 70-30 U-100 20 unit SQ BID Diabetes 10/27/23 10/27/23 insulin 100 unit/mL subcutaneous pen Previous Rx's ?Medication ?Instructions ?Recorded aspirin 81 mg chewable tablet 81 mg PO DAILY heart #90 tabs 01/20/23 semaglutide 1 mg/dose (4 mg/3 mL) 1 mg (0.75 mL) SQ WEEKLY #3 mL 01/20/23 subcutaneous pen injector (Ozempic) tizanidine 2 mg tablet 2 mg PO Q8H PRN muscle spasticity 01/20/23 #30 tabs cefdinir 250 mg/5 mL oral 300 mg (6 mL) PO BID 10 days #120 10/27/23 suspension mL clonazepam 1 mg tablet 0.5 mg (1/2 x 1 mg) PO DAILY #15 01/07/24 tabs atorvastatin 40 mg tablet See Rx Instructions .Route 01/21/24 .COMPLEX #90 tabs lisinopril 40 mg tablet See Rx Instructions .Route 01/21/24 .COMPLEX #90 tabs metformin 1,000 mg tablet See Rx Instructions .Route 01/21/24 .COMPLEX #90 tabs metoprolol succinate 50 mg See Rx Instructions .Route 01/21/24 tablet,extended release 24 hr .COMPLEX #90 tabs amlodipine 10 mg tablet See Rx Instructions .Route 02/24/24 .COMPLEX #90 tabs levothyroxine 112 mcg tablet See Rx Instructions .Route 02/24/24 .COMPLEX #90 tabs omeprazole 40 mg capsule,delayed See Rx Instructions .Route 02/24/24 release .COMPLEX #90 caps sertraline 100 mg tablet See Rx Instructions .Route 02/24/24 .COMPLEX #90 tabs gabapentin 300 mg capsule 300 mg PO .qhs PRN Neuropathic 04/24/24 pain 14 days #14 caps valacyclovir 1 gram tablet 1,000 mg PO Q8H 7 days #21 tabs 04/24/24 (Valtrex) Allergies Allergy/AdvReac Type Severity Reaction Status Date / Time penicillin V [PENICILLIN V] Allergy Unknown Verified 10/27/23 10:41 Penicillins [PENICILLINS] Allergy Unknown Verified 10/27/23 10:41 [facility] Disclaimer: The information contained in this section may have been updated after the patient was seen, as this information can be updated by other users. Medical History Anxiety Diabetes mellitus Hyperlipidemia Hypertensive disorder Surgical History Hx of tracheostomy Stented coronary artery Social History Smoking Status: Never smoker alcohol intake: never substance use type: denies use current occupational status: retired Travel in the last 8 weeks: None household members: spouse housing: house ROS Obtained: Yes All systems reviewed & no additional complaints except as documented Physical Exam General General appearance: alert Respiratory Respiratory exam: Present normal lung sounds bilaterally Cardiovascular Cardiovascular exam: Present regular rate Abdominal Exam Abdominal exam: Present other (StentedAbdomen is soft he has tenderness in the left lower quadrant to deep palpation there is a single dermatomal vesicular rash consistent with zoster in the T10 distribution) Neurological Exam Neurological exam: Present alert and oriented X3 Medical Decision Making Telly Inquiry Pt receiving controlled substance: No Vital Signs: 04/24/24 12:30 04/24/24 13:00 Temperature 98.1 F Temperature Source Oral Pulse Rate 79 Pulse Rate [Radial] 105 H Respiratory Rate 16 Blood Pressure 177/99 H Blood Pressure [Right Arm] 177/99 H Blood Pressure Mean [Right Arm] 125 Blood Pressure Source [Right Arm] Automatic Cuff Blood Pressure Position [Right Arm] Sitting 02 Sat by Pulse Oximetry 97 97 Oxygen Delivery Method Room Air Room Air Lab Data Lab results reviewed: Yes I reviewed the patient's lab results. Lab Results 04/24/24 12:40: WBC 8.7, RBC 5.17, Hgb 12.2 L, Hct 39.2 L, MCV 75.8 L, MCH 23.6 L, MCHC 31.2 L, RDW 16.9, Plt Count 472 H, MPV 7.9, Neut % (Auto) 70.1, Lymph % (Auto) 15.9, [place] % (Auto) 9.5 H, Eos % (Auto) 3.7, Baso % (Auto) 0.8, Neut # (Auto) 6.1, Lymph # (Auto) 1.4, [place] # (Auto) 0.8, Eos # (Auto) 0.3, Baso # (Auto) 0.1, Sodium 136, Potassium 4.3, Chloride 100, Carbon Dioxide 26, Anion Gap 14.3, BUN 21 H, Creatinine 1.10, Estimated Creat Clear 92, Estimated GFR 67, Est GFR ( Amer) 81, Glucose 233 H, Calcium 9.0, Total Bilirubin 0.9, AST 36, ALT 33, Alkaline Phosphatase 72, Total Protein 8.2, Albumin 4.7, Globulin 3.5 H, Albumin/Globulin Ratio 1.3, Lipase 338 H 04/24/24 12:40 04/24/24 12:40 Orders (Tests/Meds): ED MEDICATIONS Generic Name Dose Route Start Last Admin Trade Name Freq PRN Reason Stop Dose Admin Sodium Chloride 10 ml 04/24/24 13:26 04/24/24 13:27 Sodium Chloride 0.9% 10ml Syr (Rad Only) IV 05/24/24 13:25 10 ml NEEDED PRN Administration Maintain IV Site Discontinued Medications Generic Name Dose Route Start Last Admin Trade Name Freq PRN Reason Stop Dose Admin Lactated Ringer's 1,000 mls @ 999 mls/hr 04/24/24 13:00 04/24/24 13:08 Lactated Ringer's 1000 Ml Bag IV 04/24/24 14:00 999 mls/hr .Q1H1M CHANDNI Administration Iopamidol 75 ml 04/24/24 13:26 04/24/24 13:27 Iopamidol-370 (76%);100ml Bottle IV 04/24/24 13:27 75 ml ONCE ONE Administration Morphine Sulfate 4 mg 04/24/24 12:59 04/24/24 13:08 Morphine 4mg/Ml Syringe IV 04/24/24 13:00 4 mg ONCE ONE Administration Ondansetron HCl 4 mg 04/24/24 12:59 04/24/24 13:08 Ondansetron 4mg/2ml Vial IV 04/24/24 13:00 4 mg ONCE ONE Administration ORDERS Category Date Time Status CT abdomen pelvis w con Stat Cat Scan 04/24/24 12:59 Taken CBC w/Auto Diff [Complete Blood Count Auto Diff] Stat Lab 04/24/24 12:40 Completed CMP [Comprehensive Metabolic Panel] Stat Lab 04/24/24 12:40 Completed Lactic Acid Stat Lab 04/24/24 12:59 Ordered Lipase Stat Lab 04/24/24 12:40 Completed Medical Decision Narrative: 68-year-old male presenting today with above history and physical presenting today with multiple lines including 1 month of worsening abdominal pain distention and tenderness. Differential there includes recurrent diverticulitis bowel obstruction malignancy colitis etc. Superficially he has evidence of herpes zoster in a single dermatome which may explain all of his symptoms and the pain that he is experiencing but he is convinced that he has worsening pathology that far preceded this rash. Therefore we will get further workup including CT scan labs etc. IV fluids pain medicine nausea medicine have been administered will reassess. Reassessment 3:03 PM patient remains unchanged CT scan performed which I first interpreted which shows a very large amount of stool in the locations where he is having discomfort which may be the cause of his patient's symptoms. No inflammatory conditions or surgical pathology found. Labs otherwise unremarkable. Does have fatty infiltrates and nonspecific adrenal nodules. He will follow-up with primary care doctor regarding all of this. The majority of his pain is likely secondary to the zoster dermatitis. Valacyclovir and gabapentin have been prescribed he has been advised to follow his primary care doctor for further evaluation management. Critical Care Critical Care Time Critical Care Time: No
[2024-04-24 13:06] LABS: Basophils # 0.1 K/mm3 (0-0.2); Basophils % 0.8 % (0.1-2.0); Eosinophils # 0.3 K/mm3 (0.0-0.4); Eosinophils % 3.7 % (0.1-12.0); Hematocrit 39.2 % (42.0-52.0); Hemoglobin 12.2 g/dL (14.1-18.0); Lymphocytes # 1.4 K/mm3 (0.7-4.5); Lymphocytes % 15.9 % (10-50); Mean Corpuscular HGB Conc 31.2 g/dL (31.8-35.4); Mean Corpuscular Hemoglobin 23.6 pg (27.0-31.2); Mean Corpuscular Volume 75.8 fl (80-94); Mean Platelet Volume 7.9 fl (7.4-10.4); Monocytes # 0.8 K/mm3 (0.1-1.0); Monocytes % 9.5 % (1.7-9.3); Neutrophils # 6.1 K/mm3 (1.8-7.8); Neutrophils % 70.1 % (37.0-80.0); Platelet Count 472 K/mm3 (142-424); Red Blood Count 5.17 M/mm3 (4.60-6.20); Red Cell Distribution Width 16.9 % (11.5-17.5); White Blood Count 8.7 K/mm3 (4.8-10.8)
[2024-04-24 13:08] LABS: Albumin Level 4.7 g/dl (3.5-5.0); Chloride 100 mmol/L (98-107); Potassium 4.3 mmoL/L (3.5-5.1); Sodium 136 mmol/L (136-145)
[2024-04-24] MEDS: LACTATED RINGERS 1000ML 1,000 ML 999 ML IV (13:08)
[2024-04-24] MEDS: ONDANSETRON 4MG/2ML VIAL 4 MG IV (13:08)
[2024-04-24] MEDS: MORPHINE 4MG/ML SYRINGE 4 MG IV (13:08)
[2024-04-24 13:11] LABS: Alanine Aminotransferase 33 U/L (12-78); Albumin/Globulin Ratio 1.3 (1.1-1.8); Alkaline Phosphatase 72 U/L (38-126); Anion Gap 14.3 mEq/L (5-15); Aspartate Amino Transferase 36 U/L (17-59); Bilirubin,Total 0.9 mg/dl (0.2-1.3); Blood Urea Nitrogen 21 mg/dl (9-20); Carbon Dioxide 26 mmol/L (22.0-30.0); Creatinine Clearance Estimated 92 mL/min (50-200); Estimated Glomerular Filt Rate 67 ml/min (>60); GFR (African American) 81 ML/MIN (>60); Globulin 3.5 g/dL (1.3-3.2); Lipase 338 U/L (23-300); Total Protein,Serum 8.2 g/dl (6.3-8.2)
[2024-04-24 13:12] LABS: Glucose 233 mg/dl (74-100)
[2024-04-24] MEDS: SODIUM CHLORIDE 0.9% 10ML SYR (RAD ONLY) 10 ML IV (13:27)
[2024-04-24] MEDS: IOPAMIDOL-370 (76%);100ML BOTTLE 75 ML IV (13:27)
--- NOTE | 2024-04-24 14:58 | PC.NURSE ---
Dr. Luna at [facility] to update pt on results and POC
[2024-04-24 15:05] VITALS: BP 103/65; PULSE 67; RESP 18; TEMP 36.7; O2SAT 95
== END 2024-04-24 15:11 | disposition home or self-care (01) ==
PROVIDERS: Emergency Provider Student in an Organized Health Care Education/Training Program; PCP Physician Assistant
DX: B02.9 Zoster without complications (principal); R10.32 Left lower quadrant pain; R14.0 Abdominal distension (gaseous); K76.0 Fatty (change of) liver, not elsewhere classified; E27.8 Other specified disorders of adrenal gland
CPT/HCPCS: 74177; 80053; 83690; 85025; 96361; 96374; 96375; 99285; J2270; J2405; J7120; Q9967

== ENCOUNTER 2024-07-19 13:31 | Outpatient (CLI) | payer MEDICARE, SELFPAY ==
[2024-07-19 14:11] LABS: Basophils # 0.1 K/mm3 (0-0.2); Eosinophils # 0.8 K/mm3 (0.0-0.4); Eosinophils % 7.2 % (0.1-12.0); Hematocrit 39.2 % (42.0-52.0); Hemoglobin 12.4 g/dL (14.1-18.0); Lymphocytes # 1.6 K/mm3 (0.7-4.5); Lymphocytes % 14.9 % (10-50); Mean Corpuscular HGB Conc 31.7 g/dL (31.8-35.4); Mean Corpuscular Hemoglobin 23.9 pg (27.0-31.2); Mean Corpuscular Volume 75.6 fl (80-94); Mean Platelet Volume 7.4 fl (7.4-10.4); Monocytes # 0.9 K/mm3 (0.1-1.0); Monocytes % 8.5 % (1.7-9.3); Neutrophils # 7.4 K/mm3 (1.8-7.8); Neutrophils % 68.3 % (37.0-80.0); Platelet Count 448 K/mm3 (142-424); Red Blood Count 5.18 M/mm3 (4.60-6.20); Red Cell Distribution Width 16.7 % (11.5-17.5); White Blood Count 10.8 K/mm3 (4.8-10.8)
[2024-07-19 14:37] LABS: Total Iron Binding Capacity 510 ug/dL (261-462)
[2024-07-19 14:41] LABS: Iron 48 ug/dL (49-181)
== END 2024-07-19 23:59 | disposition home or self-care (01) ==
LOC: LAB 13:36
PROVIDERS: PCP Nurse Practitioner Family; Visit Provider Nurse Practitioner Family
DX: D69.6 Thrombocytopenia, unspecified (principal)
CPT/HCPCS: 36415; 83540; 83550; 85025

== ENCOUNTER 2024-09-01 13:40 | Outpatient (CLI) | payer MEDICARE, SELFPAY ==
[2024-09-01 14:08] LABS: Blood Urea Nitrogen 12 mg/dl (9-20); Estimated Glomerular Filt Rate 74 ml/min (>60); GFR (African American) 90 ML/MIN (>60)
== END 2024-09-01 23:59 | disposition home or self-care (01) ==
LOC: LAB 13:45
PROVIDERS: PCP Nurse Practitioner Family; Visit Provider Nurse Practitioner Family
DX: E11.9 Type 2 diabetes mellitus without complications (principal); Z79.84 Long term (current) use of oral hypoglycemic drugs; Z79.85 Long-term (current) use of injectable non-insulin antidiabetic drugs; Z79.4 Long term (current) use of insulin; I10 Essential (primary) hypertension
CPT/HCPCS: 36415; 82565; 84520

== ENCOUNTER 2024-09-04 08:26 | Outpatient (CLI) | payer MEDICARE, SELFPAY ==
--- NOTE | 2024-09-04 08:30 | CT_ITS ---
FINAL REPORT TECHNIQUE: Pre-and postcontrast axial imaging of the abdomen and pelvis was obtained.This study was performed with techniques to keep radiation doses as low as reasonably achievable, (ALARA). Individualized dose reduction technique using automated exposure control or adjustment of mA and/or kV according to the patient's size were employed. CLINICAL HISTORY: INTRA ABDOMINAL/PELVIC SWELLING/MASS/LUMP COMPARISON: 04/24/2024 FINDINGS: The lung bases are clear. Diffuse fatty infiltration of the liver is present without a focal abnormality identified. The gallbladder is present. The spleen and pancreas are unremarkable. There are bilateral adrenal nodules present. The right adrenal nodule is consistent with an adenoma on noncontrast imaging. There are 2 left adrenal nodules. The more superior nodule is compatible with an adenoma on noncontrast imaging. The nodule of the lateral limb of the left adrenal gland is a myelo Diffuse fatty infiltration of the liver. Lipoma, with macrocystic fat. There is no hydronephrosis or solid renal mass. On precontrast imaging, no renal stones are identified. Abdominal GI tract is unremarkable. There is no lymphadenopathy or ascites. The pelvic organs and pelvic portions of the GI tract, including the appendix, are within normal limits. Postoperative changes of the sigmoid colon appear stable. The prostate is mildly enlarged. There is no lymphadenopathy or ascites. No acute osseous abnormalities identified. IMPRESSION: Bilateral adrenal adenomas, and a left adrenal myelolipoma. Reviewed, Interpreted and Dictated by Maegan Lilly MD Transcribed by Yvette Gracia Authenticated and [facility]
[2024-09-04] MEDS: IOPAMIDOL-370 (76%);100ML BOTTLE 75 ML IV (08:59)
[2024-09-04] MEDS: SODIUM CHLORIDE 0.9% 10ML SYR (RAD ONLY) 10 ML IV (08:59)
== END 2024-09-04 23:59 | disposition home or self-care (01) ==
LOC: RAD 08:27
PROVIDERS: PCP Nurse Practitioner Family; Visit Provider Nurse Practitioner Family
DX: R19.09 Other intra-abdominal and pelvic swelling, mass and lump (principal)
CPT/HCPCS: 74178; Q9967

== ENCOUNTER 2024-10-04 10:06 | Outpatient (CLI) | payer MEDICARE, SELFPAY ==
[2024-10-04 10:42] LABS: Basophils # 0.1 K/mm3 (0-0.2); Basophils % 0.9 % (0.1-2.0); Eosinophils # 0.9 K/mm3 (0.0-0.4); Eosinophils % 7.9 % (0.1-12.0); Hematocrit 40.1 % (42.0-52.0); Hemoglobin 12.1 g/dL (14.1-18.0); Lymphocytes # 1.2 K/mm3 (0.7-4.5); Lymphocytes % 11.2 % (10-50); Mean Corpuscular HGB Conc 30.2 g/dL (31.8-35.4); Mean Corpuscular Hemoglobin 21.8 pg (27.0-31.2); Mean Corpuscular Volume 72.3 fl (80-94); Mean Platelet Volume 9.4 fl (7.4-10.4); Monocytes % 9.3 % (1.7-9.3); Neutrophils # 7.6 K/mm3 (1.8-7.8); Neutrophils % 70.1 % (37.0-80.0); Platelet Count 457 K/mm3 (142-424); Red Blood Count 5.55 M/mm3 (4.60-6.20); Red Cell Distribution Width 18.6 % (11.5-17.5); White Blood Count 10.8 K/mm3 (4.8-10.8)
[2024-10-04 10:54] LABS: Iron 47 ug/dL (49-181)
[2024-10-04 11:04] LABS: Total Iron Binding Capacity 534 ug/dL (261-462)
[2024-10-04 11:31] LABS: Ferritin 7.22 ng/ml (17.9-464)
== END 2024-10-04 23:59 | disposition home or self-care (01) ==
LOC: LAB 10:07
PROVIDERS: PCP Nurse Practitioner Family; Visit Provider Internal Medicine Medical Oncology
DX: D64.9 Anemia, unspecified (principal); D50.0 Iron deficiency anemia secondary to blood loss (chronic)
CPT/HCPCS: 36415; 82728; 83540; 83550; 85025

== ENCOUNTER 2024-12-20 10:58 | Day surgery (SDC) | payer MEDICARE, SELFPAY ==
[2024-12-19 11:07] VITALS: BMI 33.4
[2024-12-20 12:18] VITALS: BP 143/88; PULSE 98; RESP 18; TEMP 36.3; O2SAT 97
[2024-12-20] MEDS: LACTATED RINGERS 1000ML 1,000 ML 50 ML IV (12:26)
--- NOTE | 2024-12-20 12:48 | EXP.ANES.CKL ---
[facility] Disclaimer: The information contained in this section may have been updated after the patient was seen, as this information can be updated by other users. Medical History Hypothyroidism Depression GERD (gastroesophageal reflux disease) Pre-op evaluation Anxiety Diabetes mellitus Hyperlipidemia Hypertensive disorder Surgical History (Updated 12/20/24 @ 12:12 by Denise Horn RN) History of colostomy reversal H/O colectomy Stented coronary artery Hx of tracheostomy Family History (Updated 12/20/24 @ 12:12 by Denise Horn RN) Other No significant family history Social History Smoking Status: Never smoker alcohol intake: never substance use type: denies use current occupational status: retired Travel in the last 8 weeks: None household members: spouse housing: house Have you lived/traveled outside US in past 30 days?: No Contact w/someone who lives/traveled outside US past 30 days?: No Exposure to someone with infectious disease in past 14 days?: No Do you have a fever (greater than 100.4 F or 38 C)?: No Have you tested positive for COVID-19: No Exposed to someone with COVID-19 in past 14 days?: No Do you have a sore throat?: No Do you have a cough?: No Do you have any weakness?: No Do you have any diarrhea?: No Are you experiencing any unusual bleeding?: No Do you have any muscle aches/pain?: No Do you have any abdominal pain?: No Are you experiencing loss of taste or smell?: No [facility] Anesthesia Checklist Patient Identification Patient Identification: Arm Band Structural Data Admitted From: Home Planned Operative Procedure/s: EGD/Colonoscopy Consent for Planned Operative Procedure(s) Verified: Yes Verified Documents: Surgical Consent and History and Physical NPO Status Verified Time NPO: 09:00 (finished prep) Additional verifications Anesthesia Reactions: No Airway Assessment Mallampati Score:: Class II C-Spine Mobility Assessed: Yes TMJ Mobility Assessed: Yes Dentition: Edentulous Neurological Assessment Level of Consciousness: Awake, Alert and Appropriate Anesthesia Plan Anesthesia Risk discussed: Yes Anesthesia Plan: Verified ASA Class: III Anesthesia Type: MAC
--- NOTE | 2024-12-20 12:53 | P.HP_ITS ---
History of Present Illness *Admission Date: 12/20/24 *Reason for visit:: Iron deficiency anemia, bloating and left upper quadrant abdominal pain *History of present illness: Mrs. Nieves is a 69-year-old female who is here for diagnostic panendoscopy secondary to iron deficiency anemia, bloating, abdominal distention, left upper quadrant abdominal pain and constipation. The examination is deemed medically necessary for diagnostic panendoscopy. The patient has been seen, interviewed and examined prior to the procedure by both myself and the anesthesia provider. [facility] Disclaimer: The information contained in this section may have been updated after the patient was seen, as this information can be updated by other users. Medical History Hypothyroidism Depression GERD (gastroesophageal reflux disease) Pre-op evaluation Anxiety Diabetes mellitus Hyperlipidemia Hypertensive disorder Surgical History (Updated 12/20/24 @ 12:12 by Denise Horn RN) History of colostomy reversal H/O colectomy Stented coronary artery Hx of tracheostomy Family History (Updated 12/20/24 @ 12:12 by Denise Horn RN) Other No significant family history Social History Smoking Status: Never smoker alcohol intake: never substance use type: denies use current occupational status: retired Travel in the last 8 weeks: None household members: spouse housing: house Have you lived/traveled outside US in past 30 days?: No Contact w/someone who lives/traveled outside [place] past 30 days?: No Exposure to someone with infectious disease in past 14 days?: No Do you have a fever (greater than 100.4 F or 38 C)?: No Have you tested positive for COVID-19: No Exposed to someone with COVID-19 in past 14 days?: No Do you have a sore throat?: No Do you have a cough?: No Do you have any weakness?: No Do you have any diarrhea?: No Are you experiencing any unusual bleeding?: No Do you have any muscle aches/pain?: No Do you have any abdominal pain?: No Are you experiencing loss of taste or smell?: No Other Medical History Have you received the Flu Vaccine for this season: No Have you received the Pneumonia Vaccine: Yes Review of Systems Review of Systems Review of systems (narrative): Negative *Cardiovascular Comments: Negative *Gastrointestinal Comments: Negative *Genitourinary Comments: Negative *Musculoskeletal Comments: Negative *Neurologic Comments: Negative Meds Home Medications and Allergies Home Medications ?Medication ?Instructions ?Recorded ?Confirmed ?Type aspirin 81 mg chewable tablet 81 mg PO DAILY heart #90 tabs 01/20/23 12/20/24 Rx atorvastatin 40 mg tablet See Rx Instructions .Route 01/21/24 12/20/24 Rx .COMPLEX #90 tabs metformin 1,000 mg tablet See Rx Instructions .Route 01/21/24 12/20/24 Rx .COMPLEX #90 tabs amlodipine 10 mg tablet See Rx Instructions .Route 02/24/24 12/20/24 Rx .COMPLEX #90 tabs levothyroxine 112 mcg tablet See Rx Instructions .Route 02/24/24 12/20/24 Rx .COMPLEX #90 tabs omeprazole 40 mg capsule,delayed See Rx Instructions .Route 02/24/24 12/20/24 Rx release .COMPLEX #90 caps sertraline 100 mg tablet See Rx Instructions .Route 02/24/24 12/20/24 Rx .COMPLEX #90 tabs empagliflozin 10 mg tablet 10 mg PO DAILY 10/04/24 12/20/24 History (Jardiance) pen needle, diabetic 31 gauge x #1,200 ea 10/04/24 12/07/24 History 11/19 (BD Ultra-Fine Mini Pen Needle) clonazepam 1 mg tablet 0.5 mg PO DAILY PRN Anxiety 12/07/24 12/20/24 History insulin glargine 100 unit/mL (3 8 unit SQ DAILY 12/07/24 12/20/24 History mL) subcutaneous pen (Lantus Solostar U-100 Insulin) lisinopril 40 mg tablet 40 mg PO DAILY 12/07/24 12/20/24 History metoprolol succinate 50 mg 50 mg PO ONCE 12/07/24 12/20/24 History tablet,extended release 24 hr New Prescriptions to Start Prescriptions: Allergies Allergy/AdvReac Type Severity Reaction Status Date / Time penicillin V (PENICILLIN V) Allergy Unknown Hives Verified 12/20/24 12:12 Penicillins (PENICILLINS) Allergy Unknown Hives Verified 12/20/24 12:12 Exam Data for Last 24 hours Vital signs and Labs for Last 24 Hours: Temp Pulse Resp BP Pulse Ox O2 Del Method 97.3 F L 98 H 18 143/88 H 97 Room Air 12/20/24 12:18 12/20/24 12:18 12/20/24 12:18 12/20/24 12:18 12/20/24 12:18 12/20/24 12:18 I & O for Last 24 hours: Intake & Output 12/17/24 12/18/24 12/19/24 12/20/24 23:59 23:59 23:59 23:59 Weight 207 lb *Routine HEENT Exam Head: Present normocephalic Eye: Present EOMI and PERRL ENT: Present mucous membranes moist *Routine Neck Exam Neck: Present supple *Routine Respiratory Exam Respiratory: Present CTA bilaterally *Routine Cardiovascular Exam Cardiovascular: Present RRR *Routine Abdominal Exam Abdominal: Present soft and normoactive bowel sounds; Absent tenderness *Routine Rectal Exam Rectal:: deferred *Routine Genitalia Exam Genitalia:: deferred *Routine Extremities Exam Extremities: Absent cyanosis, clubbing or edema *Routine Skin Exam Skin: Present warm; Absent rash *Routine Neurological Exam Neurological: Present alert and oriented X3 Assessment and Plan *Assessment and plan (1) Iron deficiency anemia due to chronic blood loss: Status: Acute Category: Medical Code(s): D50.0 - Iron deficiency anemia secondary to blood loss (chronic) (2) LUQ pain: Status: Acute Category: Medical Code(s): R10.12 - Left upper quadrant pain (3) Bloating: Status: Acute Category: Medical Code(s): R14.0 - Abdominal distension (gaseous) (4) Chronic constipation: Status: Acute Category: Medical Code(s): K59.09 - Other constipation Plan A/P: 1. Iron deficiency anemia secondary to chronic GI blood loss with left upper quadrant abdominal pain, bloating and chronic constipation is the preprocedural diagnosis. She has not had EGD or colonoscopy in more than 10 years and did have colon resection at [facility] 15 years ago secondary to complicated diverticulitis. The patient will be anesthetized/sedated using MAC sedation. The patient has been seen and examined. Cardiac and lung assessment prior to the examination is stable. Proceed with planned EGD and colonoscopy.
--- NOTE | 2024-12-20 13:05 | P.PCN_ITS ---
[facility] Procedure Note Date: 12/20/24 Time: 13:11 Procedure Note:: Upper Endoscopy Procedure Report: Esophagogastroduodenoscopy with cold biopsies Endoscopost: Avi Saucedo II, MD Referring Physician: CATRINA Ahn Date of Procedure: December 20, 2024 Equipment: Olympus GIF 190 standard upper endoscope Sedation: MAC sedation Indications: Mr. Nieves is a 69-year-old gentleman who is here for diagnostic upper endoscopy and colonoscopy. He does have iron deficiency anemia which has been chronic. 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 He does have a tracheostomy. He also has a history of bowel irregularity with alternating constipation and loose stools. He does get bloating and some left upper quadrant abdominal pain. He did have sigmoid colon resection at [facility] 15 years ago for diverticulitis. The pa rosalba has had more fatigue and dyspnea on exertion related to his anemia. The patient's last EGD and colonoscopy were more than 10 years ago. He reports no bright red rectal bleeding, hematochezia or melena. He has been on iron supplementation. He reports no family history of esophageal, gastric or colon cancer. Procedure: Prior to the procedure, a history and physical exam was performed, and patient's medications and allergies were reviewed. The risks, benefits and alternatives of the sedation and procedure were discussed with the patient. All questions were answered and informed consent was obtained. The patient was brought to the procedure room. Patient identification and proposed procedure were verified by the physician and the nurse. The patient was placed in a left lateral decubitus position and the scope was passed under direct vision. Throughout the procedure, the patient's blood pressure, pulse, and oxygen saturations were monitored continuously. The upper GI endoscopy was accomplished without difficulty. The patient tolerated the procedure well. Findings: The scope was passed directly into the upper esophagus and advanced to the third portion of the duodenum. The post bulbar duodenum and duodenal bulb were normal with normal mucosa and conniventes. Cold biopsies were taken from the first portion of duodenum and duodenal bulb to rule out celiac disease. The scope was withdrawn through a normal duodenal bulb and slightly spastic pylorus into the stomach. There was very mild antral gastropathy. There was also evidence of mild to moderate proximal chronic gastritis and biopsies were taken along the lesser curvature to rule out H. pylori. Upon retroflexion there was no hiatal hernia. The scope was then withdrawn into the esophagus. There was no evidence of reflux esophagitis or Maria's. There was a proximal esophageal diverticulum. The remainder of the esophageal mucosa was normal. Impression: 1. Proximal esophageal diverticulum 2. Mild to moderate chronic gastritis?rule out H. pylori Plan: I will follow-up the biopsies. There was no clear source for the patient's iron deficiency anemia. I will proceed with diagnostic colonoscopy.
--- NOTE | 2024-12-20 13:13 | [facility].PROCNOTE ---
[facility] Procedure Note Date: 12/20/24 Time: 13:32 Procedure Note:: Colonoscopy Procedure Report: Colonoscopy with cold snare polypectomy Endoscopist: Avi Saucedo II, MD Referring physician: CATRINA Ahn Date of Procedure: December 20, 2024 Equipment: Olympus 190 variable stiffness pediatric colonoscope Sedation: MAC sedation Indication: Mr. Nieves is a 69-year-old gentleman who is here for diagnostic upper endoscopy and colonoscopy. He does have iron deficiency anemia which has been chronic. 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 He does have a tracheostomy. He also has a history of bowel irregularity with alternating constipation and loose stools. He does get bloating and some left upper quadrant abdominal pain. He did have sigmoid colon resection at [facility] 15 years ago for diverticulitis. The patient has had more fatigue and dyspnea on exertion related to his anemia. The patient's last EGD and colonoscopy were more than 10 years ago. He reports no bright red rectal bleeding, hematochezia or melena. He has been on iron supplementation. He reports no family history of esophageal, gastric or colon cancer. Procedure: Prior to the procedure, a history and physical exam was performed, and patient's medications and allergies were reviewed. The risks, benefits and alternatives of the sedation and procedure were discussed with the patient. All questions were answered and informed consent was obtained. The patient was brought to the procedure room. Patient identification and proposed procedure were verified by the physician and the nurse. The patient was placed in a left lateral decubitus position and the scope was passed under direct vision. Throughout the procedure, the patient's blood pressure, pulse, and oxygen saturations were monitored continuously. The colonoscopy was accomplished without difficulty. The patient tolerated the procedure well. Findings: On digital rectal examination there was normal rectal tone. There were no external hemorrhoids. The colonoscope was introduced through the anal canal to the rectum and advanced to the cecum. The ileocecal valve and appendiceal orifice were identified. The scope was advanced a short distance into the ileum which appeared grossly normal. The scope was then withdrawn into the colon. There were 2 sessile polyps (cecum x 1 (9 mm) and descending x 1 (12 mm)). Both of these were removed via cold snare polypectomy. The remaining cecum, ascending and transverse colon and mucosa were grossly normal. There were a few scattered diverticuli in the remaining descending colon. The surgical colonic anastomosis was a very wide [id number] anastomosis. The rectum itself was normal. Upon retroflexion within the rectum there were grade 2 internal hemorrhoids. The preparation was fair throughout with Windfall Preparation Score of 7 out of 9. The cecal time was 12 minutes. Impression: 1. Colonic polyps x 2 (9 and 12 mm) 2. Mild descending diverticulosis 3. Wide ywmy-il-htsy colocolonic anastomosis 4. Grade 2 internal hemorrhoids Plan: There was no etiology for any chronic GI blood loss. I will recommend Hemoccult testing. If he were Hemoccult positive, would consider PillCam/video capsule enteroscopy. I will follow-up the polyp histology and recommend repeat surveillance colonoscopy again in 3 to 5 years based upon the pathology. I would encourage psyllium fiber supplementation on a long-term daily maintenance basis.
[2024-12-20 13:35] VITALS: BP 85/49; PULSE 77; RESP 18; TEMP 36.1; O2SAT 94
[2024-12-20 13:45] VITALS: BP 135/68; PULSE 82; RESP 18; O2SAT 95
[2024-12-20 13:55] VITALS: BP 146/86; PULSE 90; RESP 18; O2SAT 94
[2024-12-20 14:05] VITALS: BP 138/87; PULSE 79; RESP 20; O2SAT 95
[2024-12-22 14:52] LABS: POC Glucose,Bedside 187 (70-110)
== END 2024-12-20 14:21 | disposition home or self-care (01) ==
PROVIDERS: PCP Nurse Practitioner Family; Visit Provider Internal Medicine Gastroenterology
PROC: 0DJ08ZZ Inspection of Upper Intestinal Tract, Via Natural or Artificial Opening Endoscopic (ICD-10-PCS; CPT 45378; principal; 2024-12-20 12:30)
DX: K31.9 Disease of stomach and duodenum, unspecified (principal); K29.50 Unspecified chronic gastritis without bleeding; Q39.6 Congenital diverticulum of esophagus; D12.0 Benign neoplasm of cecum; D12.4 Benign neoplasm of descending colon; K57.30 Diverticulosis of large intestine without perforation or abscess without bleeding; K64.1 Second degree hemorrhoids; D50.0 Iron deficiency anemia secondary to blood loss (chronic); R10.12 Left upper quadrant pain; R14.0 Abdominal distension (gaseous); K59.09 Other constipation; E11.9 Type 2 diabetes mellitus without complications
CPT/HCPCS: 43239; 45385; 82962; 88305; J2704; J7120

== ENCOUNTER 2025-08-15 15:19 | Inpatient (IN) | payer MEDICARE, SELFPAY ==
[2025-08-15] VITALS (9 sets, daily range): BP systolic 108–179; BP diastolic 59–113; PULSE 78–117; RESP 18; TEMP 36.6–37.5; O2SAT 95–100; BMI 33.2; BMI 28.8
--- NOTE | 2025-08-15 15:42 | CT_ITS ---
PROCEDURE INFORMATION: Exam: CTA Chest With Contrast Exam date and time: 08/15/2025 4:48 PM Age: 69 years old Clinical indication: Shortness of breath; Additional info: SOA and lightheaded TECHNIQUE: Imaging protocol: Computed tomographic angiography of the chest with contrast. Exam focused on the arteries. 3D rendering (Not supervised by radiologist): MIP and/or 3D reconstructed images were created by the technologist. Radiation optimization: All CT scans at this facility use at least one of these dose optimization techniques: automated exposure control; mA and/or kV adjustment per patient size (includes targeted exams where dose is matched to clinical indication); or iterative reconstruction. Contrast material: ISOVUE 370; Contrast volume: 80 ml; Contrast route: INTRAVENOUS (IV); COMPARISON: 1. CT ANGIO CHEST PE PROTOCOL 08/15/2025 4:[address] - [facility] CT CHEST W/O CONTRAST 02/12/2016 10:43 PM FINDINGS: Tubes, catheters and devices: Tracheostomy tube tip is in the expected location. Pulmonary arteries: No pulmonary emboli. Aorta: The aorta demonstrates moderate atherosclerotic disease. Lungs: Mild centrilobular emphysema. Mild scarring and atelectasis in the lower lungs. Pleural spaces: Unremarkable. No pneumothorax. No pleural effusion. Heart: Unremarkable. No cardiomegaly. No pericardial effusion. Coronary arteries: Coronary artery calcifications. Lymph nodes: Unremarkable. No enlarged lymph nodes. Bones/joints: Mixed lytic sclerotic appearance of the posterior right 2nd rib is unchanged since 2016 and of doubtful clinical significance. Right 7th rib bone island is noted and unchanged. Soft tissues: Unremarkable. Other findings: Please see separate report for abdomen/pelvis. Stigmata of old granulomatous disease. IMPRESSION: No pulmonary emboli. COMMENTS: The presence of pulmonary emphysema on CT is an independent risk factor for lung cancer. In the absence of a history or active diagnosis of lung cancer, it is recommended that this patient with emphysema be evaluated for enrollment in a low dose CT lung cancer screening program.
--- NOTE | 2025-08-15 15:42 | CT_ITS ---
PROCEDURE INFORMATION: Exam: CT Head Without Contrast Exam date and time: 08/15/2025 4:43 PM Age: 69 years old Clinical indication: Dizziness; Additional info: Lightheadedness and dizziness TECHNIQUE: Imaging protocol: Computed tomography of the head without contrast. Radiation optimization: All CT scans at this facility use at least one of these dose optimization techniques: automated exposure control; mA and/or kV adjustment per patient size (includes targeted exams where dose is matched to clinical indication); or iterative reconstruction. COMPARISON: CT HEAD/BRAIN WO CON 08/15/2025 4:43 PM FINDINGS: Brain: Age-related volume loss. No acute intracranial hemorrhage, midline shift or significant intracranial mass effect. Cerebral ventricles: No obstructive hydrocephalus. Paranasal sinuses: Mild paranasal sinus disease. Mastoid air cells: Opacification of the [id number]-vxzpndo-qtnk-right mastoid air cells. Bones: Unremarkable. No acute fracture. Soft tissues: Unremarkable. IMPRESSION: No acute intracranial abnormality.
--- NOTE | 2025-08-15 15:43 | CT_ITS ---
PROCEDURE INFORMATION: Exam: CTA Head With Contrast, Arteriography Exam date and time: 08/15/2025 4:45 PM Age: 69 years old Clinical indication: Dizziness and giddiness; Additional info: Lightheadedness, dizziness TECHNIQUE: Imaging protocol: Computed tomographic angiography of the head with contrast. Exam focused on the arteries. 3D rendering (Not supervised by radiologist): MIP and/or 3D reconstructed images were created by the technologist. Radiation optimization: All CT scans at this facility use at least one of these dose optimization techniques: automated exposure control; mA and/or kV adjustment per patient size (includes targeted exams where dose is matched to clinical indication); or iterative reconstruction. Contrast material: ISOVUE 370; Contrast volume: 80 ml; Contrast route: INTRAVENOUS (IV); COMPARISON: CT HEAD/BRAIN WO CON 08/15/2025 4:43 PM FINDINGS: ANTERIOR CIRCULATION: Right internal carotid artery: Calcification involving the right carotid siphon without significant stenosis. Right middle cerebral artery: No occlusion or significant stenosis. No aneurysm. Right anterior cerebral artery: Right ANIYA A1 segment is either markedly hypoplastic or absent. Left internal carotid artery: Calcification involving the left carotid siphon without significant stenosis. Left middle cerebral artery: No occlusion or significant stenosis. No aneurysm. Left anterior cerebral artery: No occlusion or significant stenosis. No aneurysm. POSTERIOR CIRCULATION: Right vertebral artery: No occlusion or significant stenosis. No aneurysm. Left vertebral artery: Left vertebral artery is dominant. Basilar artery: No occlusion or significant stenosis. No aneurysm. Right posterior cerebral artery: No occlusion or significant stenosis. No aneurysm. Left posterior cerebral artery: No occlusion or significant stenosis. No aneurysm. IMPRESSION: No hemodynamically significant stenosis or large vessel occlusion.
--- NOTE | 2025-08-15 15:43 | CT_ITS ---
PROCEDURE INFORMATION: Exam: CTA Neck With Contrast Exam date and time: 08/15/2025 4:45 PM Age: 69 years old Clinical indication: Dizziness and giddiness; Additional info: Lightheadedness, dizziness TECHNIQUE: Imaging protocol: Computed tomographic angiography of the neck with contrast. Exam focused on the cervical segments of the vasculature. 3D rendering (Not supervised by radiologist): MIP and/or 3D reconstructed images were created by the technologist. Radiation optimization: All CT scans at this facility use at least one of these dose optimization techniques: automated exposure control; mA and/or kV adjustment per patient size (includes targeted exams where dose is matched to clinical indication); or iterative reconstruction. Contrast material: ISOVUE 370; Contrast volume: 80 ml; Contrast route: INTRAVENOUS (IV); COMPARISON: CT ANGIO NECK 08/15/2025 4:45 PM FINDINGS: Tubes, catheters and devices: Tracheostomy tube in place. Right common carotid artery: Calcification and plaquing involving the right common carotid artery without significant stenosis. Right internal carotid artery: No stenosis of the extracranial segment. No dissection or occlusion. Right external carotid artery: No occlusion or stenosis of the origin. Left common carotid artery: Mild calcification and plaquing at the left common carotid artery without hemodynamically significant stenosis. Left internal carotid artery: Minimal calcification of the proximal left ICA without significant stenosis. Left external carotid artery: No occlusion or stenosis of the origin. Right vertebral artery: No stenosis. No dissection or occlusion. Left vertebral artery: Left vertebral artery is dominant. Soft tissues: Normal. No significant soft tissue swelling. Bones/joints: Degenerative change involving the spine. Lungs: Pulmonary emphysema. IMPRESSION: No hemodynamically significant stenosis. REFERENCES: NASCET CRITERIA. The degree of stenosis in the cervical segment of the internal carotid artery is based on NASCET criteria. Normal is no stenosis. Mild is less than 50% stenosis. Moderate is 50-69% stenosis. Severe is 70% to 99% stenosis. Total occlusion is no detectable patent lumen.
--- NOTE | 2025-08-15 15:44 | CT_ITS ---
PROCEDURE INFORMATION: Exam: CT Abdomen And Pelvis With Contrast Exam date and time: 08/15/2025 4:48 PM Age: 69 years old Clinical indication: Abdominal pain; Additional info: Abdominal pain, nausea TECHNIQUE: Imaging protocol: Computed tomography of the abdomen and pelvis with contrast. Radiation optimization: All CT scans at this facility use at least one of these dose optimization techniques: automated exposure control; mA and/or kV adjustment per patient size (includes targeted exams where dose is matched to clinical indication); or iterative reconstruction. Contrast material: ISOVUE; Contrast volume: 80 ml; Contrast route: IV; COMPARISON: CT ABDOMEN PELVIS WO/W CON 09/04/2024 8:47 AM FINDINGS: Liver: Normal. No mass. Gallbladder and biliary ducts: Normal. No calcified stones. No ductal dilation. Pancreas: Normal. No ductal dilation. Spleen: Normal. No splenomegaly. Adrenal glands: Multiple bilateral adrenal nodules representing adenomas and left adrenal myelolipoma. The right adrenal adenoma measures 1.9 cm and the left measures 1.8 cm. Kidneys and ureters: Low attenuation renal lesions measuring up to 7 mm in diameter are incompletely characterized, but are likely cysts. No followup imaging is warranted. Stomach and bowel: Mild bowel wall thickening of the stomach and portions of small bowel. Postsurgical changes of the rectosigmoid colon. Appendix: No evidence of appendicitis. Intraperitoneal space: Unremarkable. No free air. No significant fluid collection. Vasculature: The arteries demonstrate severe atherosclerotic disease. Chronic focal infrarenal abdominal aortic dissection. Lymph nodes: Unremarkable. No enlarged lymph nodes. Urinary bladder: Mild urinary bladder wall thickening. Reproductive: Mild prostate enlargement. Bones/joints: Unremarkable. No acute fracture. Soft tissues: Multiple small fat containing anterior abdominal wall hernias. There is a healed anterior abdominal wall incision. Other findings: Please see separate report for CT chest. IMPRESSION: 1. Mild bowel wall thickening of the stomach and portions of small bowel. Please exclude gastroenteritis. 2. Mild urinary bladder wall thickening. Please exclude infection. COMMENTS: Consistent with the [employer]'s Incidental Findings Committee white paper (J Am Trevor Radiol 2018): Any incidental renal lesion less than 1 cm or classified as too small to characterize, or any incidental cystic renal lesion characterized as simple-appearing, is likely benign. No follow-up imaging is recommended for these lesions per consensus recommendations based on imaging criteria.
--- NOTE | 2025-08-15 15:44 | XR_ITS ---
PROCEDURE INFORMATION: Exam: XR Chest Exam date and time: 08/15/2025 4:54 PM Age: 69 years old Clinical indication: Shortness of breath; Additional info: SOA TECHNIQUE: Imaging protocol: Radiologic exam of the chest. Views: 1 view. COMPARISON: CT ANGIO CHEST PE PROTOCOL 08/15/2025 4:48 PM FINDINGS: Lungs: Unremarkable. No consolidation. Pleural spaces: Unremarkable. No pleural effusion. No pneumothorax. Heart/Mediastinum: Unremarkable. No cardiomegaly. Bones/joints: Osteopenia. Degenerative change involving the spine. IMPRESSION: No acute cardiopulmonary process.
[2025-08-15 15:49] LABS: Hematocrit 45.9 % (42.0-52.0); Hemoglobin 15.4 g/dL (14.1-18.0); Immature Granulocytes % 1.9 %; Mean Corpuscular HGB Conc 33.6 g/dL (31.8-35.4); Mean Corpuscular Hemoglobin 25.9 pg (27.0-31.2); Mean Corpuscular Volume 77.3 fl (80-94); Nucleated Red Blood Cells % 0 %; Platelet Count 467 K/mm3 (142-424); Red Blood Count 5.94 M/mm3 (4.60-6.20); Red Cell Distribution Width-SD 46.8 fL; White Blood Count 11.8 K/mm3 (4.8-10.8)
--- NOTE | 2025-08-15 15:59 | ED_ITS ---
<Statement entered by José Haile DO - 08/15/25 23:51> I was consulted by the GETACHEW, and we discussed the complexity of problems being addressed. I approved the treatment and management plan for this patient's care in the emergency department, thus performing a substantive portion of the medical decision making. José Haile DO Discharge Plan Disposition Patient Disposition: Admitted Condition: Good Clinical Impressions Clinical Impression: Sepsis, Acute UTI, DKA (diabetic ketoacidosis), Hx of tracheostomy Discharge ED Provider: José Haile General Adult HPI General Chief complaint: Weakness Stated complaint: feels dizzy, running a fever possible stroke Time Seen by Provider: 08/15/25 15:32 Mode of Arrival: Wheelchair Source of Information: Patient Description of Symptoms (Recalled from ER Triage Doc. by RN): patient states he has been having fevers off and on for a week and feeling extremely weak and tired. he also reports dizziness. patient has a trach. History of Present Illness HPI narrative: 69-year-old male presents the emergency department accompanied by his significant other, for myriad of symptomatology, patient is significant other are both very poor historians, but essentially patient has had waxing and waning lightheadedness/vertiginous type symptomatology for the last 2 to 3 weeks, unsteady gait, ambulates with a cane at baseline, subjective fever and chills, malaise, he also endorses episodes of chest pain and shortness of breath, as well as poor p.o. intake/ no appetite , patient denies any overt abdominal pain, no nausea no vomiting no urinary type symptomatology, no constipation no diarrhea no hematuria melena hematochezia hematemesis or hemoptysis, also admits to generalized weakness, patient is a former smoker, denies any alcohol or drug use, other past medical history is consistent with esophageal/throat cancer, several years ago, with tracheostomy in place/laryngectomy, previous history of PEG tube, and perforated diverticulitis with colectomy type surgery, no colostomy bag. Other past medical history is existing with anxiety, CAD status post 5 stent placements, hyperlipidemia, T2DM, hypertension, GERD, hypothyroidism, iron deficiency anemia. Initial triage vitals notable for tachycardia otherwise unremarkable. Please note that above description of symptoms, in this electronic medical record under categorization of recalled from ER triage doctor by RN are reflective of an initial nursing assessment, however, is not reflective of my full history and physical exam that was personally taken and clarified. Consequentially, this preceding description of symptoms, which may include the patient's categorized chief complaint in the EMR, do not reflect my personal clinical impression, and the ultimate description of history of present illness and patient stated complaints should be deferred to this section of the note. Unless stated otherwise or congruent with this section of the note, additional signs, symptoms, or incongruence should be interpreted as inaccurate with my clinical impression. Onset (ago): week(s) Related Data Home Medications ?Medication ?Instructions ?Recorded ?Confirmed empagliflozin 10 mg tablet 10 mg PO DAILY 10/04/24 (Jardiance) pen needle, diabetic 31 gauge x #1,200 ea 10/04/2411/28 (BD Ultra-Fine Mini Pen Needle) clonazepam 1 mg tablet 0.5 mg PO DAILY PRN Anxiety 12/07/24 12/20/24 insulin glargine 100 unit/mL (3 8 unit SQ DAILY 12/20/24 mL) subcutaneous pen (Lantus Solostar U-100 Insulin) lisinopril 40 mg tablet 40 mg PO DAILY 12/07/2412/05 metoprolol succinate 50 mg 50 mg PO ONCE 12/07/2412/05 tablet,extended release 24 hr Previous Rx's ?Medication ?Instructions ?Recorded aspirin 81 mg chewable tablet 81 mg PO DAILY heart #90 tabs 01/20/23 atorvastatin 40 mg tablet See Rx Instructions .Route 0 01/21/24 .COMPLEX #90 tabs metformin 1,000 mg tablet See Rx Instructions .Route 0 01/21/24 .COMPLEX #90 tabs amlodipine 10 mg tablet See Rx Instructions .Route 0 02/24/24 .COMPLEX #90 tabs levothyroxine 112 mcg tablet See Rx Instructions .Rout e 02/24/24 .COMPLEX #90 tabs omeprazole 40 mg capsule,delayed See Rx Instructions . Route 02/24/24 release .COMPLEX #90 caps sertraline 100 mg tablet See Rx Instructions .Route 0 02/24/24 .COMPLEX #90 tabs Allergies Allergy/AdvReac Type Severity Reaction Status Date / Time penicillin V (PENICILLIN V) Allergy Unknown Hives Verified 12/20/24 12:12 Penicillins (PENICILLINS) Allergy Unknown Hives Verified 12/20/24 12:12 [facility] Disclaimer: The information contained in this section may have been updated after the patient was seen, as this information can be updated by other users. Medical History (Updated 08/15/25 @ 18:10 by AGA Stanton) Hypothyroidism Depression GERD (gastroesophageal reflux disease) Pre-op evaluation Anxiety Diabetes mellitus Hyperlipidemia Hypertensive disorder Surgical History (Updated 08/15/25 @ 18:10 by AGA Stanton) History of colostomy reversal H/O colectomy Stented coronary artery Hx of tracheostomy Family History (Updated 12/20/24 @ 12:12 by Denise Horn APRN) Other No significant family history Social History Smoking Status: Former smoker alcohol intake: never substance use type: denies use current occupational status: retired Travel in the last 8 weeks?: None household members: spouse housing: house Have you lived/traveled outside [place] in past 30 days?: No Contact w/someone who lives/traveled outside [place] past 30 days?: No Exposure to someone with infectious disease in past 14 days?: No Do you have a fever (greater than 100.4 F or 38 C)?: No Have you tested positive for COVID-19?: No Exposed to someone with COVID-19 in past 14 days?: No Do you have a sore throat?: No Do you have a cough?: No Do you have any weakness?: No Do you have any diarrhea?: No Are you experiencing any unusual bleeding?: No Do you have any muscle aches/pain?: No Do you have any abdominal pain?: No Are you experiencing loss of taste or smell?: No Other Medical History Have you received the Flu Vaccine for this season: No Have you received the Pneumonia Vaccine: Yes ROS Obtained: Yes All systems reviewed & no additional complaints except as documented Physical Exam General General appearance: alert and in no apparent distress Comment: Flushed appearance and tearing of the bilateral eye Head Head exam: atraumatic and normocephalic Eye Eye exam: Present PERRL and EOMI ENT ENT exam: Present mucous membranes moist Neck Neck exam: Present normal inspection Chest Chest inspection: Present normal inspection and symmetric chest wall rise Respiratory Respiratory exam: Present wheezes and other (Mild wheezes/crackles throughout bilateral lung field); Absent normal lung sounds bilaterally or respiratory distress Cardiovascular Cardiovascular exam: Present regular rate and normal rhythm Abdominal Exam Abdominal exam: Present soft and incision; Absent tenderness, guarding, rebound or rigidity Extremities Exam Extremities exam: Present normal inspection Neurological Exam Neurological exam: Present alert and other (Generalized/global weakness, moves extremities to command, no limb drift, in the bilateral lower and upper extremities no gross sensation deficit, no focal neurological deficit, ); Absent oriented X3 Psychiatric Psychiatric exam: Present normal affect Skin Skin exam: Present warm and dry Medical Decision Making Medical Records Medical records reviewed: Yes I reviewed the patient's medical records. Screening: Per USPSTF and CDC recommendations, given the prevalence of disease in our region, it is our hospital?s policy to screen for HIV and viral Hepatitis for all patients aged 18 and over and those with ongoing risk factors. Telly Inquiry Pt receiving controlled substance: No Telly was queried for this patient: No Vital Signs: 08/15/25 15:41 08/15/25 15:44 08/15/25 17:00 Temperature 99.5 F Temperature Source Oral Pulse Rate 117 H 90 Pulse Rate [Right Radial] 117 H Respiratory Rate 18 Blood Pressure 156/113 H 108/59 L Blood Pressure [Right Arm] 136/92 H Blood Pressure Mean 127 Blood Pressure Mean [Right Arm] 106 Blood Pressure Source Blood Pressure Source [Right Arm] Automatic Cuff Blood Pressure Position Blood Pressure Position [Right Arm] Supine 02 Sat by Pulse Oximetry 95 96 96 Oxygen Delivery Method Room Air Room Air Room Air 08/15/25 18:02 08/15/25 19:00 08/15/25 19:00 Temperature 98.4 F Temperature Source Oral Pulse Rate 79 79 79 Pulse Rate [Right Radial] Respiratory Rate 18 Blood Pressure 115/76 135/87 135/87 Blood Pressure [Right Arm] Blood Pressure Mean 85 Blood Pressure Mean [Right Arm] Blood Pressure Source Automatic Cuff Blood Pressure Source [Right Arm] Blood Pressure Position Supine Blood Pressure Position [Right Arm] 02 Sat by Pulse Oximetry 97 100 Oxygen Delivery Method Room Air 08/15/25 19:06 08/15/25 19:20 08/15/25 19:20 Temperature Temperature Source Pulse Rate 83 84 78 Pulse Rate [Right Radial] Respiratory Rate 18 Blood Pressure 123/89 123/89 131/84 Blood Pressure [Right Arm] Blood Pressure Mean Blood Pressure Mean [Right Arm] Blood Pressure Source Blood Pressure Source [Right Arm] Blood Pressure Position Blood Pressure Position [Right Arm] 02 Sat by Pulse Oximetry 98 96 96 Oxygen Delivery Method Room Air 08/15/25 20:20 Temperature Temperature Source Pulse Rate Pulse Rate [Right Radial] Respiratory Rate Blood Pressure 137/93 H Blood Pressure [Right Arm] Blood Pressure Mean 109 Blood Pressure Mean [Right Arm] Blood Pressure Source Blood Pressure Source [Right Arm] Blood Pressure Position Blood Pressure Position [Right Arm] 02 Sat by Pulse Oximetry Oxygen Delivery Method Lab Data Lab results reviewed: Yes I reviewed the patient's lab results. Lab Results 08/15/25 15:35: WBC 11.8 H, RBC 5.94, Hgb 15.4, Hct 45.9, MCV 77.3 L, MCH 25.9 L , MCHC 33.6, RDW 17.9 H, Plt Count 467 H, MPV 9.4, Neut % (Auto) 71.5, Lymph % (Auto) 14.1, Sandoval % (Auto) 9.2, Eos % (Auto) 2.5, Baso % (Auto) 0.8, Neut # (Auto) 8.4 H, Lymph # (Auto) 1.7, Sandoval # (Auto) 1.1 H, Eos # (Auto) 0.3, Baso # (Auto) 0.1, PT 11.2, INR 1.01, Sodium 127 L, Potassium 5.2 H, Chloride 87 L, Carbon Dioxide 22, Anion Gap 23.2 H, BUN 39 H, Creatinine 1.50 H, Estimated Creat Clear 67, Estimated GFR 46 L, Est GFR ( Amer) 56 L, Glucose 607 H*, Lactate 2.0, Calcium 9.9, Magnesium 1.6, Total Bilirubin 0.9, AST 46, ALT 45, A lkaline Phosphatase 154 H, Troponin I < 0.01, NT-Pro-B Natriuret Pep < 20.0, T otal Protein 8.9 H, Albumin 5.1 H, Globulin 3.8 H, Albumin/Globulin Ratio 1.3, L ipase 453 H, Plasma/Serum Alcohol < 10 08/15/25 15:56: VBG pH 7.31, VBG pCO2 48.4, VBG pO2 26.5 L, VBG HCO3 23.6, VBG Total CO2 25.1, VBG O2 Saturation 47.4 L, VBG Base Excess -2.7 L, VBG Lactic Acid 2.7 H 08/15/25 16:09: TSH 10.60 H, HCV Ab EDGAR w/Rflx PCR Qn Negative 08/15/25 16:22: Urine Color Yellow, Urine Appearance Clear, Urine pH 6.0, Ur Specific Whitmore 1.010, Urine Protein Trace, Urine Glucose (UA) 3+, Urine Ketones Trace, Urine Blood Trace-i, Urine Nitrate Positive A, Urine Bilirubin Negative, Urine Urobilinogen 0.2, Ur Leukocyte Esterase Negative, Urine RBC None, Urine WBC 10-20, Ur Squamous Epith Cells None, Urine Bacteria 4+ 08/15/25 16:39: Acetone Level Small 08/15/25 15:35 08/15/25 15:35 Orders (Tests/Meds): ED MEDICATIONS Generic Name Dose Route Start Last Admin Trade Name Freq PRN Reason Stop Dose Admin Acetaminophen 650 mg 08/15/25 18:12 Acetaminophen 325mg Tab PO 09/14/25 18:11 Q4HP PRN Fever or Mild Pain (1-3) Enoxaparin Sodium 40 mg 08/16/25 09:00 Enoxaparin 40mg/0.4ml Syringe SUBCUT 09/15/25 08:59 DAILY [facility] Lactated Ringer's 1,000 mls @ 100 mls/hr 08/15/25 18:15 Lactated Ringer's 1000 Ml Bag IV 08/16/25 04:14 .Q10H [facility] Insulin Human Lispro 0 unit 08/15/25 18:15 Humalog 100 Units/Ml 10ml Vial ([facility]) SUBCUT 09/14/25 18:14 Q4H [facility] Protocol Levothyroxine Sodium 100 mcg 08/16/25 09:00 Levothyroxine 100mcg (0.1mg) Tab PO 09/15/25 08:59 DAILYDM [facility] Discontinued Medications Generic Name Dose Route Start Last Admin Trade Name Freq PRN Reason Stop Dose Admin Ceftriaxone Sodium 2 gm/ 100 mls @ 200 mls/hr 08/15/25 16:45 08/15/25 17:45 Sodium Chloride IV 08/15/25 17:14 Infused ONCE ONE Infusion Sodium Chloride 1,000 mls @ 999 mls/hr 08/15/25 16:46 08/15/25 17:58 Sod Chlor 0.9% 1000ml Bag IV 08/15/25 17:46 Infused .Q1H1M ONE Infusion Insulin Human Regular 5 unit 08/15/25 17:11 08/15/25 17:30 Insulin Human Regular 100 Units/Ml 10ml Vial 0.05 unit/kg (5 unit) 08/15/25 17:12 5 unit IV Administration ONCE ONE Iopamidol 160 ml 08/15/25 16:47 08/15/25 16:49 Iopamidol-370 (76%);100ml Bottle IV 08/15/25 16:48 160 ml ONCE ONE Administration Sodium Chloride 10 ml 08/15/25 16:47 08/15/25 16:49 0.9 % Sodium Chloride 50 Ml Vial IV 08/15/25 16:48 10 ml ONCE ONE Administration ORDERS Category Date Time Status CT abdomen pelvis w con Stat Cat Scan 08/15/25 15:[address] angio chest PE protocol Stat Cat Scan 08/15/25 15:[address] angio head Stat Cat Scan 08/15/25 15:[address] angio neck Stat Cat Scan 08/15/25 15:[address] head/brain wo con Stat Cat Scan 08/15/25 15:42 Completed XR chest portable Stat Exams 08/15/25 15:44 Completed Acetone, Serum (Rapid) Stat Lab 08/15/25 16:39 Completed Basic Metabolic Panel Routine Lab 08/15/25 22:00 Ordered Complete Blood Count Auto Diff AMLAB Lab 08/16/25 06:00 Ordered Complete Blood Count Auto Diff Stat Lab 08/15/25 15:35 Completed Comprehensive Metabolic Panel AMLAB Lab 08/16/25 06:00 Ordered Comprehensive Metabolic Panel Stat Lab 08/15/25 15:35 Completed Ethanol [Ethyl Alcohol] Stat Lab 08/15/25 15:35 Completed HIV Combo Stat Lab 08/15/25 16:09 Received Hemoglobin A1C Stat Lab 08/15/25 16:09 Received Hepatitis C Ab Qual. W/ RFX Stat Lab 08/15/25 16:09 Completed Lactic Acid Stat Lab 08/15/25 15:35 Completed Lipase Stat Lab 08/15/25 15:35 Completed Magnesium AMLAB Lab 08/16/25 06:00 Ordered Magnesium Stat Lab 08/15/25 15:35 Completed NT Pro Brain Natriuretic Pep. Stat Lab 08/15/25 15:35 Completed PT INR [Prothrombin Time INR] Stat Lab 08/15/25 15:35 Completed TSH [Thyroid Stimulating Hormone] Stat Lab 08/15/25 16:09 Completed Troponin I Q3H Lab 08/15/25 19:15 Completed Troponin I Q3H Lab 08/15/25 21:45 Ordered Troponin I Stat Lab 08/15/25 15:35 Completed Urinalysis and Microscopic Stat Lab 08/15/25 16:22 Completed Blood Culture Stat Micro 08/15/25 16:06 Ordered Urine Culture Stat Micro 08/15/25 16:22 Received VBG [Venous Blood Gas] Stat RT 08/15/25 15:56 Completed Medical Decision Narrative: 69-year-old male presents the emergency department with multiple symptomatology see HPI for detailed past medical history, differential diagnose include but not limited to, sepsis, PE, pneumonia, malignancy, TIA/CVA, cardiac arrhythmia, electrolyte disturbance, CHF exacerbation, acute UTI, hypovolemia, anemia, peripheral vertigo among others. I discussed this patient's case with the attending patient Dr. Haile he saw and examined the patient as well. Will obtain EKG, VBG chest x-ray ethyl alcohol level lactic acid level lipase level, proBNP, troponin, magnesium level, coags, UA, blood cultures, will obtain CT of the abdomen with contrast, CTA chest CTA head and neck with and without contrast, CT head without contrast CBC is noted for leukocytosis at 11.8, MCV decreased 77.3, thrombocytosis of 467 otherwise unremarkable CBC Coags within normal limit CMP is noted for mild hyponatremia 127, anion gap of 23. 2, BUN is elevated 39, creatinine elevated at 1.5, no lactic acidosis. Initial troponin is less than 0.01, proBNP within normal limit. Lipase is elevated at 443 At the alcohol level within normal limit VBG is notable for normal pH of acidotic pH at 7.31, elevated venous lactic acid level at 2.7, bicarb within normal limits, pCO2 within normal limits Will obtain acetone level Urinalysis is notable for nitrite positive, negative leukocyte esterase, 10-20 WBCs, no squamous epithelial cells and 4+ urine bacteria, with patient's leukocytosis and nitrite positive urinalysis, patient not initially meeting sepsis criteria upon arrival, however will initiate 1 L IV NS, will not do full sepsis bolus for concern for fluid overload and tachycardia and based on clinical auscultation of the patient's lungs, will also initiate 2 g of IV ceftriaxone. Hyperglycemia at 607, will give 5 units of IV insulin. I reviewed the patient's CT head without contrast on the corresponding radiologic report, no acute intracranial abnormality. I reviewed the patient's CTA neck with and without contrast on the corresponding radiologic report, no hemodynamically significant stenosis. I reviewed the patient's CTA head with and without contrast and with corresponding radiologic report, no hemodynamically significant stenosis or large vessel occlusion. I reviewed the patient's chest x-ray along the corresponding radiologic report no acute cardiopulmonary process I reviewed the patient's CT head and pelvis with contrast and with the corresponding radiologic report, mild bowel wall thickening of the stomach and portion of the small bowel, please clued gastroenteritis, mild urinary bladder wall thickening please exclude infection. I reviewed the patient's CTA chest with and without contrast PE protocol along the corresponding radiologic report no pulmonary emboli. I had a long discussion with the hospitalist physician over the phone at approximately 6:05 PM, he is in agreement with the current admission plan/treatment plan, for sepsis in the setting of acute UTI, borderline HHS versus DKA due to ketonuria, anion gap metabolic acidosis, and hyperglycemia. Hospitalist will place order for DKA protocol. I discussed need for admission with the patient and family the bedside patient and family in agreement with the current admission plan/treatment plan. Reviewed the patient's chest x-ray along the corresponding radiologic report no acute cardiopulmonary process. Critical Care Critical Care Time Critical Care Time: Yes Attestation: On 08/15/25, the high probability of a clinically significant, sudden or life threatening deterioration of the following system(s) required my full and direct attention, intervention and personal management. The time I documented below is in addition to time spent performing reported procedures but includes the following listed in this critical care notation. Total Time Total Critical Care Time: 30
[2025-08-15 16:00] LABS: Alanine Aminotransferase 45 U/L (12-78); Albumin Level 5.1 g/dl (3.5-5.0); Alkaline Phosphatase 154 U/L (38-126); Anion Gap 23.2 mEq/L (5-15); Aspartate Amino Transferase 46 U/L (17-59); Bilirubin,Total 0.9 mg/dl (0.2-1.3); Blood Urea Nitrogen 39 mg/dl (9-20); Calcium 9.9 mg/dl (8.4-10.2); Carbon Dioxide 22 mmol/L (22.0-30.0); Chloride 87 mmol/L (98-107); Creatinine Clearance Estimated 67 mL/min (50-200); Creatinine,Serum 1.50 mg/dl (0.66-1.25); Estimated Glomerular Filt Rate 46 ml/min (>60); GFR (African American) 56 ML/MIN (>60); INR 1.01 (0.9-1.1); Lipase 453 U/L (23-300); Magnesium 1.6 mg/dl (1.6-2.3); Potassium 5.2 mmoL/L (3.5-5.1); Prothrombin Time 11.2 seconds (10.1-12.5); Sodium 127 mmol/L (136-145)
--- NOTE | 2025-08-15 16:00 | ECG_ITS ---
APPROVED REPORT Exam: Resting ECG HR:113 bpm ECG Measurements Heart Rate 113 AXES MS 158 P 53 QRSd 100 QRS -37 QT 304 T 81 QTc 371 Conclusion Sinus tachycardia Left axis Normal intervals No STEMI Electronically signed by : José Haile, 08/16/2025 23:18:34
[2025-08-15 16:05] LABS: VBG HCO3 23.6 mmol/L (23-30); VBG PCO2 48.4 mmol/L (35-51); VBG PH 7.31 mmol/L (7.31-7.41); VBG PO2 26.5 mmol/L (28-40)
--- NOTE | 2025-08-15 16:09 | PC.NURSE ---
Critical from the lab. Lactic 2.73 PH 7.306 Blood Glucose 581 Provider notified.
[2025-08-15 16:13] LABS: NT Pro Brain Natriuretic Pep. < 20.0 pg/mL (0-125)
[2025-08-15 16:13] LABS: Lactate Venous 2.7 mmol/L (0.4-2.0)
[2025-08-15 16:17] LABS: Troponin I < 0.01 ng/ml (0.00-0.034)
[2025-08-15 16:29] LABS: Microscopic, Urine URINE MICROSCOPIC (MICROSCOPIC)
[2025-08-15 16:31] LABS: Albumin/Globulin Ratio 1.3 (1.1-1.8); Globulin 3.8 g/dL (1.3-3.2); Total Protein,Serum 8.9 g/dl (6.3-8.2)
[2025-08-15 16:40] LABS: Bilirubin,Urine Negative (Negative); Color,Urine YELLOW (Yellow); Glucose,Urine (UA) 3+ (Negative); Ketones,Urine TRACE (Negative); Leukocyte Esterase,Urine Negative (Negative); PH,Urine 6.0 (5.0-8.5); Protein,Urine TRACE (Negative); Specific Gravity, Urine 1.010 (1.005-1.030); Urobilinogen,Urine 0.2 EU/dl (0.2)
[2025-08-15 16:43] LABS: Bacteria,Urine 4+ /lpf
[2025-08-15] MEDS: 0.9 % SODIUM CHLORIDE 50 ML VIAL 10 ML IV (16:49)
[2025-08-15] MEDS: IOPAMIDOL-370 (76%);100ML BOTTLE 160 ML IV (16:49)
[2025-08-15] MEDS: 0.9 % SODIUM CHLORIDE 1000ML 1,000 ML 999 ML IV (16:57)
[2025-08-15 17:07] LABS: Glucose 607 mg/dl (74-100)
[2025-08-15] MEDS: INSULIN HUMAN REGULAR 100 UNITS/ML 10ML VIAL 5 UNIT IV (17:30)
[2025-08-15 18:02] LABS: Hepatitis C Ab Qual. W/ RFX NEGATIVE (Negative)
[2025-08-15 18:18] LABS: Acetone, Serum (Rapid) Small (None Detect)
[2025-08-15 19:26] LABS: Thyroid Stimulating Hormone 10.60 uIU/mL (0.465-4.68)
[2025-08-15 19:49] LABS: Troponin I < 0.01 ng/ml (0.00-0.034)
[2025-08-15 20:09] LABS: Reflex Lactic Add Lactic Reflex
--- NOTE | 2025-08-15 20:29 | PC.NURSE ---
pt transferred to 2nd floor with SRNA x 2. Family with patient.
--- NOTE | 2025-08-15 20:34 | PC.NURSE ---
Patient arrived to floor via stretcher from ED at 20:33.
[2025-08-15 20:44] LABS: Lactic Acid Follow Up (RFLX 1) 0.8 mmol/L (0.7-2.1)
[2025-08-15] MEDS: LACTATED RINGERS 1000ML 1,000 ML 100 ML IV (21:37)
[2025-08-15] MEDS: humaLOG 100 UNITS/ML 10ML VIAL (SSI) SUBCUT (22:04)
[2025-08-15 22:44] LABS: Chloride 95 mmol/L (98-107); Potassium 4.5 mmoL/L (3.5-5.1); Sodium 132 mmol/L (136-145)
[2025-08-15 22:47] LABS: Blood Urea Nitrogen 31 mg/dl (9-20); Creatinine Clearance Estimated 73 mL/min (50-200); Creatinine,Serum 1.20 mg/dl (0.66-1.25); Estimated Glomerular Filt Rate 60 ml/min (>60); GFR (African American) 73 ML/MIN (>60)
[2025-08-15 22:48] LABS: Anion Gap 18.5 mEq/L (5-15); Calcium 8.8 mg/dl (8.4-10.2); Carbon Dioxide 23 mmol/L (22.0-30.0); Glucose 330 mg/dl (74-100)
[2025-08-15 23:02] LABS: Troponin I < 0.01 ng/ml (0.00-0.034)
[2025-08-15 23:15] LABS: Hemoglobin A1C > 14.0 % (4.0-6.0)
[2025-08-16] VITALS: BP 91/59; PULSE 82; RESP 16; TEMP 36.8; O2SAT 95
--- NOTE | 2025-08-16 00:42 | P.HP_ITS ---
<Statement entered by Thierry Palomino MD - 08/16/25 07:18> Rounded on patient after nurse practitioner. Personally examined and interviewed patient. Agree with exam findings and care plan as documented. 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 He states that he is felt overall weak and tired for the last several days. Also states he has had some dizziness. Self reports noncompliance with home medication including diabetes and CAD medications. Denies any fever. Denies any dysuria. Emergency Department workup notable for normal troponin. Lipase of 443, anion gap of 23, sodium of 127, creatinine of 1.5, glucose of 600, pH of 7.31, lactic acid of 2.7. Also noted to have nitrate positive urine with 10-20 white cells and +4 bacteria. EKG without ischemia, chest abdomen pelvis imaging without abnormality CT of the head unremarkable. Given his acute infection as well as mild DKA it was felt he would benefit from hospitalization. He is admitted to hospital service at this time. [facility] Disclaimer: The information contained in this section may have been updated after the patient was seen, as this information can be updated by other users. Medical History (Updated 08/16/25 @ 01:00 by DARLING Willis) Hypothyroidism Depression GERD (gastroesophageal reflux disease) Pre-op evaluation Anxiety Diabetes mellitus Hyperlipidemia Hypertensive disorder Surgical History (Updated 08/15/25 @ 18:10 by AGA Stanton) History of colostomy reversal H/O colectomy Stented coronary artery Hx of tracheostomy Family History (Updated 12/20/24 @ 12:12 by Denise Horn APRN) Other No significant family history Social History Smoking Status: Former smoker alcohol intake: never substance use type: denies use current occupational status: retired Travel in the last 8 weeks?: None household members: spouse housing: house Have you lived/traveled outside US in past 30 days?: No Contact w/someone who lives/traveled outside US past 30 days?: No Exposure to someone with infectious disease in past 14 days?: No Do you have a fever (greater than 100.4 F or 38 C)?: No Have you tested positive for COVID-19?: No Exposed to someone with COVID-19 in past 14 days?: No Do you have a sore throat?: No Do you have a cough?: No Do you have any weakness?: No Do you have any diarrhea?: No Are you experiencing any unusual bleeding?: No Do you have any muscle aches/pain?: No Do you have any abdominal pain?: No Are you experiencing loss of taste or smell?: No Other Medical History Have you received the Flu Vaccine for this season: No Have you received the Pneumonia Vaccine: Yes Review of Systems Review of Systems Review of systems:: pertinent systems reviewed and negative unless documented below Review of systems (narrative): Negative except for HPI Meds Home Medications and Allergies Home Medications ?Medication ?Instructions ?Recorded ?Confirmed ?Type aspirin 81 mg chewable tablet 81 mg PO DAILY heart #90 tabs 01/20/23 12/20/24 Rx atorvastatin 40 mg tablet See Rx Instructions .Route 0 01/21/24 12/20/24 Rx .COMPLEX #90 tabs metformin 1,000 mg tablet See Rx Instructions .Route 0 01/21/24 12/20/24 Rx .COMPLEX #90 tabs amlodipine 10 mg tablet See Rx Instructions .Route 0 02/24/24 12/20/24 Rx .COMPLEX #90 tabs levothyroxine 112 mcg tablet See Rx Instructions .Rout e 02/24/24 12/20/24 Rx .COMPLEX #90 tabs omeprazole 40 mg capsule,delayed See Rx Instructions . Route 02/24/24 12/20/24 Rx release .COMPLEX #90 caps sertraline 100 mg tablet See Rx Instructions .Route 0 02/24/24 12/20/24 Rx .COMPLEX #90 tabs empagliflozin 10 mg tablet 10 mg PO DAILY 10/04/24 History (Jardiance) pen needle, diabetic 31 gauge x #1,200 ea 10/04/2411/28 History 11/19 (BD Ultra-Fine Mini Pen Needle) clonazepam 1 mg tablet 0.5 mg PO DAILY PRN Anxiety 12/07/24 12/20/24 History insulin glargine 100 unit/mL (3 8 unit SQ DAILY 12/20/24 History mL) subcutaneous pen (Lantus Solostar U-100 Insulin) lisinopril 40 mg tablet 40 mg PO DAILY 12/07/2412/05 History metoprolol succinate 50 mg 50 mg PO ONCE 12/07/2412/05 History tablet,extended release 24 hr New Prescriptions to Start Prescriptions: Allergies Allergy/AdvReac Type Severity Reaction Status Date / Time penicillin V (PENICILLIN V) Allergy Unknown Hives Verified 12/20/24 12:12 Penicillins (PENICILLINS) Allergy Unknown Hives Verified 12/20/24 12:12 Exam Data for Last 24 hours Vital signs and Labs for Last 24 Hours: Temp Pulse Resp BP Pulse Ox O2 Del Method 98.2 F 82 16 91/59 L 95 Room Air 08/16/25 00:00 08/16/25 00:00 08/16/25 00:00 08/16/25 00:00 08/16/25 00:00 08/16/25 00:00 Laboratory Results - last 24 hr 08/15/25 15:35: WBC 11.8 H, RBC 5.94, Hgb 15.4, Hct 45.9, MCV 77.3 L, MCH 25.9 L , MCHC 33.6, RDW 17.9 H, Plt Count 467 H, MPV 9.4, Neut % (Auto) 71.5, Lymph % (Auto) 14.1, Early % (Auto) 9.2, Eos % (Auto) 2.5, Baso % (Auto) 0.8, Neut # (Auto) 8.4 H, Lymph # (Auto) 1.7, Early # (Auto) 1.1 H, Eos # (Auto) 0.3, Baso # (Auto) 0.1, PT 11.2, INR 1.01, Sodium 127 L, Potassium 5.2 H, Chloride 87 L, Carbon Dioxide 22, Anion Gap 23.2 H, BUN 39 H, Creatinine 1.50 H, Estimated Creat Clear 67, Estimated GFR 46 L, Est GFR ( Amer) 56 L, Glucose 607 H*, Lactate 2.0, Calcium 9.9, Magnesium 1.6, Total Bilirubin 0.9, AST 46, ALT 45, Alkaline Phosphatase 154 H, Troponin I < 0.01, NT-Pro-B Natriuret Pep < 20.0, Total Protein 8.9 H, Albumin 5.1 H, Globulin 3.8 H, Albumin/Globulin Ratio 1.3, Lipase 453 H, Plasma/Serum Alcohol < 10 08/15/25 15:56: VBG pH 7.31, VBG pCO2 48.4, VBG pO2 26.5 L, VBG HCO3 23.6, VBG Total CO2 25.1, VBG O2 Saturation 47.4 L, VBG Base Excess -2.7 L, VBG Lactic Acid 2.7 H 08/15/25 16:09: Hemoglobin A1c > 14.0 H, TSH 10.60 H, HCV Ab EDGAR w/Rflx PCR Qn Negative 08/15/25 16:22: Urine Color Yellow, Urine Appearance Clear, Urine pH 6.0, Ur Specific [place] 1.010, Urine Protein Trace, Urine Glucose (UA) 3+, Urine Ketones Trace, Urine Blood Trace-i, Urine Nitrate Positive A, Urine Bilirubin Negative, Urine Urobilinogen 0.2, Ur Leukocyte Esterase Negative, Urine RBC None, Urine WBC 10-20, Ur Squamous Epith Cells None, Urine Bacteria 4+ 08/15/25 16:39: Acetone Level Small 08/15/25 19:15: Troponin I < 0.01 08/15/25 20:29: Lactate 0.8 08/15/25 22:09: Sodium 132 L, Potassium 4.5, Chloride 95 L, Carbon Dioxide 23, Anion Gap 18.5 H, BUN 31 H, Creatinine 1.20, Estimated Creat Clear 73, Estimated GFR 60, Est GFR ( Amer) 73 D, Glucose 330 H D, Calcium 8.8, Troponin I < 0.01 I & O for Last 24 hours: Intake & Output 08/13/25 08/14/25 08/15/25 08/16/25 23:59 23:59 23:59 23:59 Intake Total 1100 / 1100 Balance 1100 / 1100 Weight 88.314 kg Constitutional Constitutional: no acute distress *Routine HEENT Exam Head: Present normocephalic Eye: Present EOMI and PERRL ENT: Present other Comments: tracheostomy in place with *Routine Neck Exam Neck: Present supple; Absent lymphadenopathy *Routine Respiratory Exam Respiratory: Present CTA bilaterally *Routine Cardiovascular Exam Cardiovascular: Present RRR *Routine Abdominal Exam Abdominal: Present soft and normoactive bowel sounds; Absent tenderness *Routine Rectal Exam Rectal:: deferred *Routine Genitalia Exam Genitalia:: deferred *Routine Extremities Exam Extremities: Absent cyanosis, clubbing or edema *Routine Skin Exam Skin: Present warm; Absent rash *Routine Neurological Exam Neurological: Present alert and oriented X3 Assessment and Plan *Assessment and plan (1) DKA (diabetic ketoacidosis): Status: Acute Qualifiers: Diabetes mellitus type: type 2 Category: Medical Code(s): E11.10 - Type 2 diabetes mellitus with ketoacidosis without coma (2) Acute UTI: Status: Acute Category: Medical Code(s): N39.0 - Urinary tract infection, site not specified (3) Essential hypertension: Status: Chronic Category: Medical Code(s): I10 - Essential (primary) hypertension (4) Hypothyroidism: Status: Chronic Category: Medical Code(s): E03.9 - Hypothyroidism, unspecified (5) Diabetes mellitus: Status: Chronic Qualifiers: Diabetes mellitus type: type 2 Diabetes mellitus manager intermediate insulin use: with assisted use Diabetes mellitus complication status: with neurologic complications Diabetes mellitus complication detail: with polyneuropathy Qualified Code(s): E11.42 - Type 2 diabetes mellitus with diabetic polyneuropathy Category: Medical Code(s): E11.9 - Type 2 diabetes mellitus without complications (6) Hyperlipidemia: Status: Chronic Qualifiers: Hyperlipidemia type: mixed hyperlipidemia Qualified Code(s): E78.2 - Mixed hyperlipidemia Category: Medical Code(s): E78.5 - Hyperlipidemia, unspecified Plan #DKA #DM 2 Mild DKA noted with a pH of 7.31, anion gap of 23, hyponatremia sodium of 127,. Hemodynamically stable. No tachypnea community health coordinator small respirations or tachycardia noted Received IV fluids in the emergency department. Reduction of glucose to mid 300 range after IV insulin given in the emergency department. Will continue on every 4 hours sliding scale insulin and IV fluids for treatment. defer insulin drip for now. Serial BMPs. A1c greater than 14 Encourage medical compliance at discharge #Acute cystitis Nitrate positive urine with bacteria and pyuria. Continue Rocephin IV. Follow- up urine cultures #HTN Continue home medications once reconciled. Will need medicine reconciliation for restart as there are medications that I do not believe are accurate. #Hypothyroidism Mildly elevated TSH of 10.6. Continue levothyroxine 100 mcg daily #Hyponatremia Pseudohyponatremia in the setting of hyperglycemia. Should correct with IV fluids and glucose correction Monitor on repeat BMP
[2025-08-16] MEDS: humaLOG 100 UNITS/ML 10ML VIAL (SSI) SUBCUT ×5 (02:28→21:30)
[2025-08-16 02:39] LABS: POC Glucose,Bedside 254 gm/dL (70-110)
[2025-08-16 04:00] VITALS: BP 92/54; PULSE 80; RESP 17; TEMP 36.8; O2SAT 96; BMI 28.8
[2025-08-16 06:26] LABS: POC Glucose,Bedside 246 gm/dL (70-110)
[2025-08-16 06:48] LABS: Albumin Level 3.7 g/dl (3.5-5.0); Chloride 98 mmol/L (98-107); Potassium 3.5 mmoL/L (3.5-5.1); Sodium 132 mmol/L (136-145)
[2025-08-16 06:49] LABS: Hematocrit 38.0 % (42.0-52.0); Immature Granulocytes % 1.4 %; Mean Corpuscular HGB Conc 34.2 g/dL (31.8-35.4); Mean Corpuscular Hemoglobin 26.0 pg (27.0-31.2); Mean Corpuscular Volume 76.0 fl (80-94); Nucleated Red Blood Cells % 0 %; Platelet Count 356 K/mm3 (142-424); Red Blood Count 5.00 M/mm3 (4.60-6.20); Red Cell Distribution Width-SD 45.8 fL; White Blood Count 11.8 K/mm3 (4.8-10.8)
[2025-08-16 06:51] LABS: Alanine Aminotransferase 32 U/L (12-78); Albumin/Globulin Ratio 1.2 (1.1-1.8); Alkaline Phosphatase 84 U/L (38-126); Anion Gap 11.5 mEq/L (5-15); Aspartate Amino Transferase 38 U/L (17-59); Bilirubin,Total 0.4 mg/dl (0.2-1.3); Blood Urea Nitrogen 26 mg/dl (9-20); Carbon Dioxide 26 mmol/L (22.0-30.0); Creatinine Clearance Estimated 79 mL/min (50-200); Creatinine,Serum 1.10 mg/dl (0.66-1.25); Estimated Glomerular Filt Rate 66 ml/min (>60); GFR (African American) 80 ML/MIN (>60); Globulin 3.0 g/dL (1.3-3.2); Total Protein,Serum 6.7 g/dl (6.3-8.2)
[2025-08-16 06:52] LABS: Calcium 8.7 mg/dl (8.4-10.2); Glucose 142 mg/dl (74-100); Magnesium 1.8 mg/dl (1.6-2.3)
[2025-08-16 07:24] LABS: Hemoglobin 12.9 g/dL (14.1-18.0)
[2025-08-16 08:00] VITALS: BP 103/52; PULSE 94; RESP 18; TEMP 37.1; O2SAT 93
[2025-08-16] MEDS: ASPIRIN EC 81MG TABLET 81 MG PO (08:18)
[2025-08-16] MEDS: LEVOTHYROXINE 100MCG (0.1MG) TAB 100 MCG PO (08:18)
[2025-08-16 08:36] LABS: POC Glucose,Bedside 361 gm/dL (70-110)
--- NOTE | 2025-08-16 08:48 | P.PN_ITS ---
Subjective *Date: 08/16/25 *Time: 11:08 Interval history: Feeling marginally better today. Glucose better controlled. Heart rate improved, normotensive, On room air. Afebrile. Medical Exam Vital signs and Labs for Last 24 Hours: Vital Signs Temp Pulse Pulse Resp BP BP Pulse Ox 08/16/25 07:55 08/16/25 06:48 08/16/25 05:00 08/16/25 04:00 98.3 F 80 17 92/54 L 96 08/16/25 03:00 08/16/25 01:00 08/16/25 00:00 98.2 F 82 16 91/59 L 95 08/15/25 23:00 08/15/25 21:02 97.9 F 101 H 18 179/103 H 98 08/15/25 21:00 08/15/25 20:20 137/93 H 08/15/25 19:20 78 131/84 96 08/15/25 19:20 84 18 123/89 96 08/15/25 19:06 83 123/89 98 08/15/25 19:00 08/15/25 19:00 79 135/87 100 08/15/25 19:00 98.4 F 79 18 135/87 08/15/25 18:39 08/15/25 18:02 79 115/76 97 08/15/25 17:00 90 108/59 L 96 08/15/25 15:44 99.5 F 117 H 18 136/92 H 96 08/15/25 15:41 117 H 156/113 H 95 O2 Del Method 08/16/25 07:55 Room Air 08/16/25 06:48 Room Air 08/16/25 05:00 Room Air 08/16/25 04:00 Room Air 08/16/25 03:00 Room Air 08/16/25 01:00 Room Air 08/16/25 00:00 Room Air 08/15/25 23:00 Room Air 08/15/25 21:02 Room Air 08/15/25 21:00 Room Air 08/15/25 20:20 08/15/25 19:20 08/15/25 19:20 Room Air 08/15/25 19:06 08/15/25 19:00 Room Air 08/15/25 19:00 08/15/25 19:00 Room Air 08/15/25 18:39 Room Air 08/15/25 18:02 08/15/25 17:00 Room Air 08/15/25 15:44 Room Air 08/15/25 15:41 Room Air Intake and Output 08/15/25 08/16/25 08/16/25 23:59 07:59 15:59 Intake Total 1100 / 1100 Output Total 400 / 400 Balance 1100 / 1100 -400 / -400 Intake: Intake, Total IV Amount 1100 / 1100 0.9 % Sodium Chloride 1000ML 1, 1000 / 1000 000 ml @ 999 mls/hr IV .Q1H1M ONE Rx#:[id number] Ceftriaxone Sodium 2 gm In 0.9 100 / 100 % Sodium Chloride 100 ml @ 200 mls/hr IV ONCE ONE Rx#:[id number] Output: Output, Urine Amount 400 / 400 Other: Number of Unmeasured Voids 0 Weight 88.314 kg 88.224 kg Patient Weight 08/16/25 23:59 Weight 88.224 kg Laboratory Results - last 24 hr 08/15/25 15:35: WBC 11.8 H, RBC 5.94, Hgb 15.4, Hct 45.9, MCV 77.3 L, MCH 25.9 L , MCHC 33.6, RDW 17.9 H, Plt Count 467 H, MPV 9.4, Neut % (Auto) 71.5, Lymph % (Auto) 14.1, [place] % (Auto) 9.2, Eos % (Auto) 2.5, Baso % (Auto) 0.8, Neut # (Auto) 8.4 H, Lymph # (Auto) 1.7, Victoria # (Auto) 1.1 H, Eos # (Auto) 0.3, Baso # (Auto) 0.1, PT 11.2, INR 1.01, Sodium 127 L, Potassium 5.2 H, Chloride 87 L, Carbon Dioxide 22, Anion Gap 23.2 H, BUN 39 H, Creatinine 1.50 H, Estimated Crea t Clear 67, Estimated GFR 46 L, Est GFR ( Amer) 56 L, Glucose 607 H*, Lactate 2.0, Calcium 9.9, Magnesium 1.6, Total Bilirubin 0.9, AST 46, ALT 45, Alkaline Phosphatase 154 H, Troponin I < 0.01, NT-Pro-B Natriuret Pep < 20.0, Total Protein 8.9 H, Albumin 5.1 H, Globulin 3.8 H, Albumin/Globulin Ratio 1.3, Lipase 453 H, Plasma/Serum Alcohol < 10 08/15/25 15:56: VBG pH 7.31, VBG pCO2 48.4, VBG pO2 26.5 L, VBG HCO3 23.6, VBG Total CO2 25.1, VBG O2 Saturation 47.4 L, VBG Base Excess -2.7 L, VBG Lactic Aci d 2.7 H 08/15/25 16:09: Hemoglobin A1c > 14.0 H, TSH 10.60 H, HCV Ab EDGAR w/Rflx PCR Qn Negative, HIV Ag/Ab Combo Qual Negative 08/15/25 16:22: Urine Color Yellow, Urine Appearance Clear, Urine pH 6.0, Ur Specific [place] 1.010, Urine Protein Trace, Urine Glucose (UA) 3+, Urine Ketones Trace, Urine Blood Trace-i, Urine Nitrate Positive A, Urine Bilirubin Negative, Urine Urobilinogen 0.2, Ur Leukocyte Esterase Negative, Urine RBC None, Urine WBC 10-20, Ur Squamous Epith Cells None, Urine Bacteria 4+ 08/15/25 16:39: Acetone Level Small 08/15/25 19:15: Troponin I < 0.01 08/15/25 20:29: Lactate 0.8 08/15/25 21:51: POC Glucose 361 H* 08/15/25 22:09: Sodium 132 L, Potassium 4.5, Chloride 95 L, Carbon Dioxide 23, Anion Gap 18.5 H, BUN 31 H, Creatinine 1.20, Estimated Creat Clear 73, Estimated GFR 60, Est GFR ( Amer) 73 D, Glucose 330 H D, Calcium 8.8, Troponin I < 0.01 08/16/25 02:21: POC Glucose 254 H 08/16/25 06:13: WBC 11.8 H, RBC 5.00, Hgb 12.9 L D, Hct 38.0 L, MCV 76.0 L, MCH 26.0 L, MCHC 34.2, RDW 16.9, Plt Count 356, MPV 9.1, Neut % (Auto) 61.6, Lymph % (Auto) 20.8, [place] % (Auto) 11.1 H, Eos % (Auto) 4.3, Baso % (Auto) 0.8, Neut # (Auto) 7.3, Lymph # (Auto) 2.5, Victoria # (Auto) 1.3 H, Eos # (Auto) 0.5 H, Baso # (Auto) 0.1, Sodium 132 L, Potassium 3.5 D, Chloride 98, Carbon Dioxide 26, Anion Gap 11.5, BUN 26 H, Creatinine 1.10, Estimated Creat Clear 79, Estimated GFR 66, Est GFR ( Amer) 80, Glucose 142 H D, Calcium 8.7, Magnesium 1.8 D, Total Bilirubin 0.4, AST 38, ALT 32 D, Alkaline Phosphatase 84, Total Protein 6.7, Albumin 3.7 D, Globulin 3.0, Albumin/Globulin Ratio 1.2 08/16/25 06:16: POC Glucose 246 H I & O for Labs for Last 24 Hours: Intake & Output 08/13/25 08/14/25 08/15/25 08/16/25 23:59 23:59 23:59 23:59 Intake Total 1100 / 1100 Output Total 400 / 400 Balance 1100 / 1100 -400 / -400 Weight 88.314 kg 88.224 kg Constitutional: Present mild distress, chronically ill appearing and cooperative Head: Present atraumatic Comment:: Tracheostomy in place Respiratory: Present normal respiratory effort Cardiac: Present Reg Rate and Rhythm GI: Present soft and normal bowel sounds; Absent distention or tenderness Extremities: Present normal inspection and full ROM Skin: Present intact; Absent erythema Neuro: Present Grossly Intact, alert, awake, oriented x 3 and moves all extremities Comment:: Decreased sensation in hands and feet bilaterally Assessment and Plan *Assessment and plan (1) DKA (diabetic ketoacidosis): Status: Acute Qualifiers: Diabetes mellitus type: type 2 Category: Medical Code(s): E11.10 - Type 2 diabetes mellitus with ketoacidosis without coma (2) Acute UTI: Status: Acute Category: Medical Code(s): N39.0 - Urinary tract infection, site not specified (3) Essential hypertension: Status: Chronic Category: Medical Code(s): I10 - Essential (primary) hypertension (4) Hypothyroidism: Status: Chronic Category: Medical Code(s): E03.9 - Hypothyroidism, unspecified (5) Diabetes mellitus: Status: Chronic Qualifiers: Diabetes mellitus type: type 2 Diabetes mellitus roasterman insulin use: with roasterman use Diabetes mellitus complication status: with neurologic complications Diabetes mellitus complication detail: with polyneuropathy Qualified Code(s): E11.42 - Type 2 diabetes mellitus with diabetic polyneuropathy Category: Medical Code(s): E11.9 - Type 2 diabetes mellitus without complications (6) Hyperlipidemia: Status: Chronic Qualifiers: Hyperlipidemia type: mixed hyperlipidemia Qualified Code(s): E78.2 - Mixed hyperlipidemia Category: Medical Code(s): E78.5 - Hyperlipidemia, unspecified Plan 69-year-old male with poorly controlled diabetes who presents in DKA with UTI. Continuing antibiotics. Blood sugar doing better today. Continues to require inpatient management pending culture speciation and sensitivity. Anion gap closed this morning problems addressed as follows: #DKA #DM 2 Mild DKA noted with a pH of 7.31, anion gap of 23, hyponatremia sodium of 127,. Hemodynamically stable. Glucose improved at 142, sodium 132. Potassium 3.5, gap 11.5 this morning. Repeat CBC, CMP, magnesium and phosphorus ordered for the morning -Transition sliding scale insulin to ACHS and fingersticks ACHS -Initiate insulin glargine 8 units this morning. Will make adjustments daily - A1c greater than 14 -Nutrition consulted for diabetic diet counseling #Acute cystitis Nitrate positive urine with bacteria and pyuria. Continue Rocephin IV 2 g daily. Having dysuria. Initiate Pyridium as needed 4 times a day. Blood and urine culture still pending - White count improved at 11.8. #HTN -Blood pressure soft this morning at 103/52 - Continue aspirin 81 mg daily, Lipitor 40 mg daily - Will hold SRINIVAS/ARB pending improvement in blood pressure #Hypothyroidism Mildly elevated TSH of 10.6. Continue levothyroxine 100 mcg daily #Hyponatremia Pseudohyponatremia in the setting of hyperglycemia. Improved this morning at 132. Monitor with repeat labs in the morning.- Full code Lovenox 40 mg subcu daily Diabetic diet
--- NOTE | 2025-08-16 09:20 | HMH.PHAAMS2 ---
- Antimicrobial Stewardship Review culture & sensitivity review Stewardship interventions: culture & sensitivity review (CURRENTLY ON ROCEPHIN FOR UTI, WBC STEADY AT 11.8K, AFEBRILE, CX PENDING.)
[2025-08-16] MEDS: GABAPENTIN 100MG CAPSULE 200 MG PO ×3 (09:29→21:30)
[2025-08-16] MEDS: PHENAZOPYRIDINE 200MG TABLET 100 MG PO ×3 (09:29→21:30)
[2025-08-16] MEDS: INSULIN GLARGINE 100 UNITS/ML 3ML FLEXPEN 8 UNIT SUBCUT (09:34)
[2025-08-16 09:45] LABS: POC Glucose,Bedside 340 gm/dL (70-110)
[2025-08-16 11:03] LABS: POC Glucose,Bedside 359 gm/dL (70-110)
[2025-08-16 12:00] VITALS: BP 142/86; PULSE 126; RESP 18; TEMP 36.7; O2SAT 90
[2025-08-16 12:01] VITALS: BMI 28.8
[2025-08-16 15:56] LABS: POC Glucose,Bedside 353 gm/dL (70-110)
[2025-08-16 16:00] VITALS: BP 98/59; PULSE 116; RESP 16; TEMP 37.2; O2SAT 92
[2025-08-16 20:00] VITALS: BP 118/54; PULSE 111; RESP 16; TEMP 37.2; O2SAT 92
[2025-08-16 21:13] LABS: POC Glucose,Bedside 424 gm/dL (70-110)
[2025-08-16] MEDS: ATORVASTATIN 40MG TABLET 40 MG PO (21:30)
[2025-08-17] VITALS (9 sets, daily range): BP systolic 109–166; BP diastolic 49–115; PULSE 80–131; RESP 16–18; TEMP 36.2–37.2; O2SAT 92–95; BMI 29.2
[2025-08-17 00:09] LABS: POC Glucose,Bedside 319 gm/dL (70-110)
[2025-08-17] MEDS: humaLOG 100 UNITS/ML 10ML VIAL (SSI) 6 UNIT SUBCUT ×2 (00:31→16:37)
[2025-08-17] MEDS: humaLOG 100 UNITS/ML 10ML VIAL (SSI) SUBCUT ×4 (05:40→20:53)
[2025-08-17] MEDS: LEVOTHYROXINE 100MCG (0.1MG) TAB 100 MCG PO ×2 (05:40→11:19)
[2025-08-17 06:04] LABS: Hematocrit 38.0 % (42.0-52.0); Hemoglobin 12.3 g/dL (14.1-18.0); Immature Granulocytes % 2.2 %; Mean Corpuscular HGB Conc 32.4 g/dL (31.8-35.4); Mean Corpuscular Hemoglobin 25.3 pg (27.0-31.2); Mean Corpuscular Volume 78.0 fl (80-94); Nucleated Red Blood Cells % 0 %; Platelet Count 291 K/mm3 (142-424); Red Blood Count 4.87 M/mm3 (4.60-6.20); Red Cell Distribution Width-SD 48.9 fL; White Blood Count 8.8 K/mm3 (4.8-10.8)
[2025-08-17 06:16] LABS: Albumin Level 3.7 g/dl (3.5-5.0); Chloride 101 mmol/L (98-107); Potassium 3.5 mmoL/L (3.5-5.1); Sodium 137 mmol/L (136-145)
[2025-08-17 06:18] LABS: Alanine Aminotransferase 39 U/L (12-78); Anion Gap 16.5 mEq/L (5-15); Aspartate Amino Transferase 51 U/L (17-59); Blood Urea Nitrogen 24 mg/dl (9-20); Carbon Dioxide 23 mmol/L (22.0-30.0); Creatinine Clearance Estimated 88 mL/min (50-200); Creatinine,Serum 1.00 mg/dl (0.66-1.25); Estimated Glomerular Filt Rate 74 ml/min (>60); GFR (African American) 90 ML/MIN (>60)
[2025-08-17 06:19] LABS: Albumin/Globulin Ratio 1.4 (1.1-1.8); Alkaline Phosphatase 94 U/L (38-126); Bilirubin,Total 0.3 mg/dl (0.2-1.3); Calcium 8.5 mg/dl (8.4-10.2); Globulin 2.7 g/dL (1.3-3.2); Glucose 178 mg/dl (74-100); Magnesium 2.0 mg/dl (1.6-2.3); Phosphorous 3.6 mg/dl (2.5-4.5); Total Protein,Serum 6.4 g/dl (6.3-8.2)
[2025-08-17 06:53] LABS: POC Glucose,Bedside 210 gm/dL (70-110)
[2025-08-17] MEDS: ASPIRIN EC 81MG TABLET 81 MG PO (08:07)
[2025-08-17] MEDS: PHENAZOPYRIDINE 200MG TABLET 100 MG PO ×3 (08:07→20:39)
[2025-08-17] MEDS: SERTRALINE 100MG TABLET 100 MG PO (08:07)
[2025-08-17] MEDS: GABAPENTIN 100MG CAPSULE 200 MG PO ×2 (08:07→09:39)
[2025-08-17] MEDS: LACTATED RINGERS 1000ML 500 ML 250 ML IV (08:10)
[2025-08-17] MEDS: INSULIN GLARGINE 100 UNITS/ML 3ML FLEXPEN 15 UNIT SUBCUT (08:16)
[2025-08-17 08:33] LABS: POC Glucose,Bedside 316 gm/dL (70-110)
--- NOTE | 2025-08-17 09:04 | HMH.PHAAMS2 ---
- Antimicrobial Stewardship Review culture & sensitivity review Stewardship interventions: culture & sensitivity review (CURRENTLY RECEIVING ROCEPHIN FOR UTI, WBC WNL NOW, AFEBRILE, GRAM (-) RODS IN URINE CX.)
--- NOTE | 2025-08-17 09:34 | HMH.PTEV ---
Physical Therapy Evaluation Rehab PT IP Evaluation Start: 08/17/25 09:21 Freq: ONCE Status: Active Protocol: Document 08/17/25 09:30 VALENTINO (Rec: 08/17/25 09:34 VALENTINO [id number]) Subjective/History History History Per H&P: This is a 69-year-old male with past medical history of esophageal throat cancer s/p laryngectomy with tracheostomy in place, HTN, HLD, GERD, hypothyroidism, NESTOR who presents emergency department with complaints of generalized weakness. He states that he is felt overall weak and tired for the last several days. Also states he has had some dizziness. Self reports noncompliance with home medication including diabetes and CAD medications. Denies any fever. Denies any dysuria. Emergency Department workup notable for normal troponin . Lipase of 443, anion gap of 23, sodium of 127, creatinine of 1.5, glucose of 600, pH of 7.31, lactic acid of 2.7. Also noted to have nitrate positive urine with 10-20 white cells and +4 bacteria. EKG without ischemia, chest abdomen pelvis imaging without abnormality CT of the head unremarkable. Given his acute infection as well as mild DKA it was felt he would benefit from hospitalization. He is admitted to hospital service at this time. Subjective Subjective PLOF: IND with use of walking stick. No falls in past 30 days but reports hx of LOB. HOME: Lives with his in a SS home with 0 FARIBA. ASSIST: able to assist as needed. [facility] How much help from another person do you currently need... Turning from your None back to your side while in a flat bed without using bedrails? Moving from lying on None back to sitting on the side of a flat bed without using bedrails? Moving to and from a None bed to a chair ( including a wheelchair)? Standing up from a None chair using your arms? (e.g., wheelchair, bedside chair) Walking in hospital None room? Climbing 3-5 steps A little with a railing? Mobility Score 23 Mobility Level Ferrell Grewal Mobility 7 Walk 25 feet or more Mobility Calculator Rehab PT IP Eval Objective Appearance Patient Behavior Appropriate,Cooperative Patient Orientation Person,Place Difficulty following none instructions Speech Pattern Clear Ambulation Patient Able to Yes Ambulate Ambulation Observation IP General Gait Wide Based Gait Pattern Observation Ambulation Distance 30 (feet) Ambulation Assistive Straight Cane Device Ambulation Ability Supervision/Stand by Balance Ability to Arise Able, uses arms to help Sitting Balance Steady, safe Standing Balance Steady, wide stance Dynamic Sitting Good Balance Ability Dynamic Standing Fair Balance Ability Transfers Bed Transfer Ability Supervision/Stand by Sit to Stand Bed Supervision/Stand by Transfer Ability Rehab PT IP prob,goals,plan Problems Date of Evaluation: 08/17/25 Rehab Potential Rehab Potential Innapropriate for Skilled Therapy Discharge Plan PT Discharge Plan Pt appears to be at his baseline in mobility and is not appropriate for skilled acute level PT at this time. PT recommending pt use RW rather than a walking stick d /t reported hx of impaired balance/LOB when ambulating. PT updated CM on pt's need for RW. Eval Complexity Eval Charge Codes 31289 - Moderate Complexity PHYSICIAN CERTIFICATION: I certify the specified therapy services for Scarlett Nieves are required, authorized, and reviewed every 30 days.
[2025-08-17] MEDS: INSULIN GLARGINE 100 UNITS/ML 3ML FLEXPEN 20 UNIT SUBCUT (09:38)
--- NOTE | 2025-08-17 09:57 | HMH.OTEV ---
OT Evaluation Rehab OT IP Evaluation Start: 08/17/25 09:21 Freq: ONCE Status: Active Protocol: [facility]17[facility]25 09[facility] (Rec: 08/17/25 09:56 [facility] [id number]) Rehab OT IP Assessment Subjective History Pt oriented x 3 on arrival. Pt agreeable to engage in therapy evaluation. Pt's present and supportive. Pt admitted on 08/16/25 due to UTI, DKA, and weaknesss . 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 He states that he is felt overall weak and tired for the last several days. Also states he has had some dizziness. Self reports noncompliance with home medication including diabetes and CAD medications. Denies any fever. Denies any dysuria. Emergency Department workup notable for normal troponin . Lipase of 443, anion gap of 23, sodium of 127, creatinine of 1.5, glucose of 600, pH of 7.31, lactic acid of 2.7. Also noted to have nitrate positive urine with 10-20 white cells and +4 bacteria. EKG without ischemia, chest abdomen pelvis imaging without abnormality CT of the head unremarkable. Given his acute infection as well as mild DKA it was felt he would benefit from hospitalization. He is admitted to hospital service at this time. Subjective Prior to being in the hospital, pt lived at home with his . Pt reports living in a single story home with one step to enter. Pt claims normally he is independent with all ADLs (bathing, feeding, and dressing.). He does use a walking stick during functional transfers. His completes all IADLs. He no longer drives. Pt's is home with patient at all times to assist as needed. Objective Patient Orientation Person,Place,Birthday Right Upper WFL Extremity Gross ROM Left Upper Extremity WFL Gross ROM Bed Mobility bed mobility-scooting,bed mobility - supine/sit Assist Level Supervision/Stand by Transfer Training Sit/Stand Transfer Assist Level Supervision/Stand by Chair Transfer Supervision/Stand by Ability Chair Transfer Sit to/from Ambulatory Technique Lower Body Dressing Standby Assistance Ability Rehab OT IP prob,goals,plan Problems Date of Evaluation: 08/17/25 Rehab Potential Rehab Potential Innapropriate for Skilled Therapy Discharge Plan OT Discharge Plan Pt appears to be at his baseline with functional transfers and ADL independence. Pt can return home with 's assistance as needed. Therapist does recommend pt use a rolling walker during functional transfers vs walking stick for increased safety during functional transfers. Pt can return home once medically stable per physician. Eval Complexity Eval Charge Codes 73805 - Moderate Complexity PHYSICIAN CERTIFICATION: I certify the specified therapy services for Scarlett Nieves are required, authorized, and reviewed every 30 days.
--- NOTE | 2025-08-17 10:11 | CARE MANAGER ---
Patient requires the use of a walker for ambulation due to a mobility impairment that cannot be corrected with a cane, but there is potential for ambulation.
--- NOTE | 2025-08-17 10:16 | EXP.ACUTE.PN ---
Subjective *Date: 08/17/25 *Time: 11:19 Interval history: Stating he still has pain in his arms and legs. Complaining of elbow and knees down. Consistent with neuropathy. Tolerating p.o. intake. Glucose doing better but still elevated. Will adjust insulin today. Stable on room air. Medical Exam Vital signs and Labs for Last 24 Hours: Vital Signs Temp Pulse Resp BP BP Pulse Ox O2 Del Method 08/17/25 09:00 Room Air 08/17/25 08:00 97.1 F L 119 H 16 131/49 L 93 L Room Air 08/17/25 07:00 Room Air 08/17/25 05:00 Room Air 08/17/25 04:00 98.0 F 80 16 109/51 L 94 L Room Air 08/17/25 03:00 Room Air 08/17/25 01:00 Room Air 08/17/25 00:00 98.1 F 97 H 16 121/74 92 L Room Air 08/16/25 23:00 Room Air 08/16/25 21:00 Room Air 08/16/25 20:00 Room Air 08/16/25 20:00 98.9 F 111 H 16 118/54 L 92 L Room Air 08/16/25 18:25 Room Air 08/16/25 17:00 Room Air 08/16/25 16:00 99.0 F 116 H 16 98/59 L 92 L Room Air 08/16/25 12:00 98.1 F 126 H 18 142/86 H 90 L Room Air Intake and Output 08/16/25 08/17/25 08/17/25 23:59 07:59 15:59 Intake Total 580 / 2640 240 / 600 360 / 600 Output Total 0 / 400 0 / 500 500 / 500 Balance 580 / 2240 240 / 100 -140 / 100 Intake: Intake, Oral Amount 480 / 1540 240 / 600 360 / 600 Intake, Total IV Amount 100 / 1100 Ceftriaxone Sodium 2 gm In 0.9 100 / 100 % Sodium Chloride 100 ml @ 200 mls/hr IV Q24H [facility] Rx#:[id number] Output: Output, Urine Amount 0 / 400 0 / 500 500 / 500 Other: Number of Unmeasured Voids 2 1 0 Weight 89.494 kg Patient Weight 08/17/25 23:59 Weight 89.494 kg Laboratory Results - last 24 hr 08/15/25 16:22: Urine Color Yellow, Urine Appearance Clear, Urine pH 6.0, Ur Specific [place] 1.010, Urine Protein Trace, Urine Glucose (UA) 3+, Urine Ketones Trace, Urine Blood Trace-i, Urine Nitrate Positive A, Urine Bilirubin Negative, Urine Urobilinogen 0.2, Ur Leukocyte Esterase Negative, Urine RBC None, Urine WBC 10-20, Ur Squamous Epith Cells None, Urine Bacteria 4+ 08/16/25 10:54: POC Glucose 359 H* 08/16/25 15:47: POC Glucose 353 H* 08/16/25 21:00: POC Glucose 424 H* 08/17/25 00:00: POC Glucose 319 H* 08/17/25 05:17: POC Glucose 210 H 08/17/25 05:50: WBC 8.8 D, RBC 4.87, Hgb 12.3 L, Hct 38.0 L, MCV 78.0 L, MCH 25.3 L, MCHC 32.4, RDW 17.4, Plt Count 291, MPV 9.1, Neut % (Auto) 64.9, Lymph % (Auto) 15.5, Darke % (Auto) 12.2 H, Eos % (Auto) 4.4, Baso % (Auto) 0.8, Neut # (Auto) 5.7, Lymph # (Auto) 1.4, Darke # (Auto) 1.1 H, Eos # (Auto) 0.4, Baso # (Auto) 0.1, Sodium 137, Potassium 3.5, Chloride 101, Carbon Dioxide 23, Anion Gap 16.5 H, BUN 24 H, Creatinine 1.00, Estimated Creat Clear 88, Estimated GFR 74, Est GFR ( Amer) 90, Glucose 178 H D, Calcium 8.5, Phosphorus 3.6, Magnesium 2.0 D, Total Bilirubin 0.3, AST 51 D, ALT 39, Alkaline Phosphatase 94, Total Protein 6.4, Albumin 3.7, Globulin 2.7, Albumin/Globulin Ratio 1.4 08/17/25 08:17: POC Glucose 316 H* I & O for Labs for Last 24 Hours: Intake & Output 08/14/25 08/15/25 08/16/25 08/17/25 23:59 23:59 23:59 23:59 Intake Total 1100 / 1100 2400 / 2640 600 / 600 Output Total 400 / 400 500 / 500 Balance 1100 / 1100 2000 / 2240 100 / 100 Weight 88.314 kg 88.224 kg 89.494 kg Microbiology Reports for the Last 24 Hours: Microbiology 08/15/25 16:22 Urine,Clean Catch Urine Culture - Preliminary Gram Negative Rods 08/15/25 15:59 Blood Blood Culture - Preliminary NO GROWTH AFTER 24 HOURS 08/15/25 15:35 Blood Blood Culture - Preliminary NO GROWTH AFTER 24 HOURS Constitutional: Present no acute distress, chronically ill appearing and cooperative Head: Present atraumatic Comment:: Tracheostomy in place Respiratory: Present normal respiratory effort Cardiac: Present Reg Rate and Rhythm GI: Present soft and normal bowel sounds; Absent distention or tenderness Extremities: Present normal inspection and full ROM Skin: Present intact; Absent erythema Neuro: Present Grossly Intact, alert, awake, oriented x 3 and moves all extremities Comment:: Decreased sensation in hands and feet bilaterally Assessment and Plan *Assessment and plan (1) DKA (diabetic ketoacidosis): Status: Acute Qualifiers: Diabetes mellitus type: type 2 Category: Medical Code(s): E11.10 - Type 2 diabetes mellitus with ketoacidosis without coma (2) Acute UTI: Status: Acute Category: Medical Code(s): N39.0 - Urinary tract infection, site not specified (3) Essential hypertension: Status: Chronic Category: Medical Code(s): I10 - Essential (primary) hypertension (4) Hypothyroidism: Status: Chronic Category: Medical Code(s): E03.9 - Hypothyroidism, unspecified (5) Diabetes mellitus: Status: Chronic Qualifiers: Diabetes mellitus type: type 2 Diabetes mellitus custodial insulin use: with custodial use Diabetes mellitus complication status: with neurologic complications Diabetes mellitus complication detail: with polyneuropathy Qualified Code(s): E11.42 - Type 2 diabetes mellitus with diabetic polyneuropathy Category: Medical Code(s): E11.9 - Type 2 diabetes mellitus without complications (6) Hyperlipidemia: Status: Chronic Qualifiers: Hyperlipidemia type: mixed hyperlipidemia Qualified Code(s): E78.2 - Mixed hyperlipidemia Category: Medical Code(s): E78.5 - Hyperlipidemia, unspecified Plan 69-year-old male with poorly controlled diabetes who presents in DKA with UTI. Continuing antibiotics. Blood sugar doing better today. Urine growing gram-negative rods. Continues to require inpatient management. Adjusting insulin regimen. Problems addressed as follows: #DKA #DM 2 - Mild DKA noted with a pH of 7.31, anion gap of 23, hyponatremia sodium of 127,. Hemodynamically stable. - Morning white count of 8.8, hemoglobin 12.3. Sodium 137, glucose 178 on morning labs. Potassium 3.5. Kidney function normal with BUN 24, creatinine 1. - Phosphorus 3.6, magnesium 2.0 - Repeat CBC, CMP, magnesium ordered for the morning --Sliding scale insulin high intensity. Increased basal insulin glargine to 20 units this morning. Make adjustments daily. - A1c greater than 14 -Nutrition consulted for diabetic diet counseling - Nursing to teach significant other about fingersticks and meter usage today. #Acute cystitis - Nitrate positive urine with bacteria and pyuria. Continue Rocephin IV 2 g daily. - Dysuria improved. Continue Pyridium as needed 4 times a day. Blood and urine culture still pending -Urine culture growing gram-negative rods #HTN -Blood pressure improving today, 131/49. - Continue aspirin 81 mg daily, Lipitor 40 mg daily - Will hold SRINIVAS/ARB pending improvement in blood pressure #Hypothyroidism Mildly elevated TSH of 10.6. continue levothyroxine 100 mcg daily #Hyponatremia Pseudohyponatremia in the setting of hyperglycemia. Improved this morning at 132. Monitor with repeat labs in the morning.- Full code Lovenox 40 mg subcu daily Diabetic diet
--- NOTE | 2025-08-17 10:31 | SW/DCPLANNER ---
Addendum entered by Melody Orr 08/17/25 13:52: [place] langston/ John stated order was reviewed and rolling walker will be delivered tomorrow morning at bedside around 9:30AM. Original Note: Patient voiced the need for a rolling walker at time of discharge. Patient does not have a preference as to where walker is ordered. Patient information/order send to [facility] due to insurance. Per MD possible discharge tomorrow.
[2025-08-17 11:56] LABS: POC Glucose,Bedside 354 gm/dL (70-110)
[2025-08-17] MEDS: GABAPENTIN 400MG CAPSULE 400 MG PO ×2 (14:23→20:39)
--- NOTE | 2025-08-17 16:26 | PC.NURSE ---
Pt resting in bed. Has been up to the chair and ambulated to BR. FSBS trending up. 316, 354 & 362. Humalog and Lantus adminitered. Pt and family was educated on obtaining fingersticks and administering insulin. Both pt and significant other stated they understand and are comfortable with instructions. Pt had a shower this shift. No complaints stated. Call light within reach.
[2025-08-17 16:49] LABS: POC Glucose,Bedside 362 gm/dL (70-110)
--- NOTE | 2025-08-17 20:25 | PC.NURSE ---
Addendum entered by Iliana Albarado RN 08/17/25 22:05: Blood pressure and heart rate were reassessed at 22:00 after metoprolol tartrate administration. Blood pressure reading was 133/78 and heart rate was 89. Facial flushing noted to have also improved. Addendum entered by Iliana Albarado RN 08/17/25 21:00: EKG was completed by Myla MAYER at 20:30. Erna Connell APRN notified about completion. Vital signs were taken (see documentation for 20:35); patient's blood pressure reading prior to administration was 166/106 and heart rate was 124. Skin flushing noted as well. One time dose of metoprolol tartrate 12.5 mg PO was administered at 20:39 per NOV. Original Note: Respiratory was paged at this time to perform an EKG for the patient.
--- NOTE | 2025-08-17 20:30 | ECG_ITS ---
APPROVED REPORT Exam: Resting ECG HR:110 bpm ECG Measurements Heart Rate 110 AXES OR 144 P 40 QRSd 88 QRS -8 QT 328 T 51 QTc 393 Conclusion SINUS TACHYCARDIA ABNORMAL RHYTHM ECG UNCONFIRMED REPORT Electronically signed by : Kevin Chao MD 08/18/2025 21:54:00
[2025-08-17] MEDS: ATORVASTATIN 40MG TABLET 40 MG PO (20:39)
[2025-08-17] MEDS: METOPROLOL TARTRATE 25MG TABLET 12.5 MG PO (20:39)
[2025-08-17] MEDS: PANTOPRAZOLE 40MG TABLET 40 MG PO (20:39)
[2025-08-17 20:55] LABS: POC Glucose,Bedside 291 gm/dL (70-110)
[2025-08-18] VITALS: BP 106/66; PULSE 85; RESP 14; TEMP 36.9; O2SAT 93
[2025-08-18 04:00] VITALS: BP 146/83; PULSE 82; RESP 16; TEMP 36.9; O2SAT 92; BMI 29.9
[2025-08-18 06:09] LABS: POC Glucose,Bedside 198 gm/dL (70-110)
[2025-08-18] MEDS: LEVOTHYROXINE 100MCG (0.1MG) TAB 100 MCG PO (06:12)
[2025-08-18] MEDS: humaLOG 100 UNITS/ML 10ML VIAL (SSI) 6 UNIT SUBCUT ×2 (06:12→11:41)
[2025-08-18] MEDS: humaLOG 100 UNITS/ML 10ML VIAL (SSI) SUBCUT ×2 (06:12→11:42)
[2025-08-18 07:24] LABS: Hematocrit 39.5 % (42.0-52.0); Hemoglobin 12.5 g/dL (14.1-18.0); Immature Granulocytes % 1.9 %; Mean Corpuscular HGB Conc 31.6 g/dL (31.8-35.4); Mean Corpuscular Hemoglobin 25.3 pg (27.0-31.2); Mean Corpuscular Volume 79.8 fl (80-94); Nucleated Red Blood Cells % 0 %; Platelet Count 322 K/mm3 (142-424); Red Blood Count 4.95 M/mm3 (4.60-6.20); Red Cell Distribution Width-SD 51.7 fL; White Blood Count 8.9 K/mm3 (4.8-10.8)
[2025-08-18 07:27] LABS: Albumin Level 4.1 g/dl (3.5-5.0); Chloride 104 mmol/L (98-107); Potassium 4.1 mmoL/L (3.5-5.1); Sodium 140 mmol/L (136-145)
[2025-08-18 07:29] LABS: Alanine Aminotransferase 43 U/L (12-78); Anion Gap 14.1 mEq/L (5-15); Aspartate Amino Transferase 49 U/L (17-59); Blood Urea Nitrogen 17 mg/dl (9-20); Carbon Dioxide 26 mmol/L (22.0-30.0); Creatinine Clearance Estimated 90 mL/min (50-200); Creatinine,Serum 1.00 mg/dl (0.66-1.25); Estimated Glomerular Filt Rate 74 ml/min (>60); GFR (African American) 90 ML/MIN (>60)
[2025-08-18 07:30] LABS: Albumin/Globulin Ratio 1.5 (1.1-1.8); Alkaline Phosphatase 95 U/L (38-126); Bilirubin,Total 0.4 mg/dl (0.2-1.3); Calcium 8.6 mg/dl (8.4-10.2); Globulin 2.8 g/dL (1.3-3.2); Glucose 177 mg/dl (74-100); Total Protein,Serum 6.9 g/dl (6.3-8.2)
[2025-08-18 08:00] VITALS: BP 134/66; PULSE 118; RESP 18; TEMP 36.9; O2SAT 93
--- NOTE | 2025-08-18 08:04 | P.DS_ITS ---
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 He states that he is felt overall weak and tired for the last several days. Also states he has had some dizziness. Self reports noncompliance with home medication including diabetes and CAD medications. Denies any fever. Denies any dysuria. Emergency Department workup notable for normal troponin. Lipase of 443, anion gap of 23, sodium of 127, creatinine of 1.5, glucose of 600, pH of 7.31, lactic acid of 2.7. Also noted to have nitrate positive urine with 10-20 white cells and +4 bacteria. EKG without ischemia, chest abdomen pelvis imaging without abnormality CT of the head unremarkable. Given his acute infection as well as mild DKA it was felt he would benefit from hospitalization. He is admitted to hospital service at this time. Hospital Course Hospital Course Hospital Course: 69-year-old male with poorly controlled diabetes who presents in DKA with UTI. Found to be positive for Proteus and E. coli. Diabetes doing better with adjustment to basal bolus regimen. Meeting criteria to discharge home with close follow-up with PCP for further adjustment in the outpatient setting. Problems addressed as follows: #DKA #DM 2 - At time of admission, mild DKA noted with a pH of 7.31, anion gap of 23, hyponatremia sodium of 127,. Hemodynamically stable. Showed improvement with aggressive treatment and initiation of IV fluids and sliding scale insulin. Anion gap closed by morning after admission. Made gradual adjustments to insulin regimen for improved glucose control. By day of discharge, patient's glucose running low 100s in the morning, increasing to 300 by evening/afternoon. Recommend continuing insulin glargine 40 units in the morning. Recommend mealtime short acting 15 units with meals. Will need further adjustment in the outpatient setting, recommend close follow-up with PCP for further teaching and insulin adjustment. Prescribed insulin pens and glucose meter. -Resume metformin 1000 mg twice daily. Holding on SGLT2 due to active UTI - A1c greater than 14 -Nutrition consulted for diabetic diet counseling; nursing worked with patient and significant other about fingersticks and meter usage. - Called in prescription for insurance preferred meter, lancets, test strips. Recommend testing blood sugar 3 times a day. #Acute cystitis/UTI secondary to E. coli and Proteus, present on admission - Nitrate positive urine with bacteria and pyuria. Initiated on ceftriaxone 2 g daily. Urine culture growing 2 different pathogens. Positive for E. coli and Proteus. E. coli pansensitive. Proteus still pending at discharge. Transitioned to cefdinir to complete 2 more days of antibiotics. White count normalized by day of discharge - Had some dysuria on admission, treated during inpatient course with Pyridium for dysuria #HTN -Blood pressure initially soft, likely due to hypovolemia. Improved during admission. Resumed his home regimen for CAD and hypertension including metoprolol succinate 50 mg daily, lisinopril 40 mg daily, Lipitor 40 mg daily, and amlodipine 10 mg daily along with aspirin 81 mg daily. #Hypothyroidism: Mildly elevated TSH of 10.6. continue levothyroxine 100 mcg daily #Hyponatremia Pseudohyponatremia in the setting of hyperglycemia. Normalized by day of discharge Total time spent on discharge 37 minutes in counseling, documentation, chart review, and direct care with patient. Exam Data for Last 24 hours Vital signs and Labs for Last 24 Hours: Temp Pulse Resp BP Pulse Ox O2 Del Method 98.4 F 82 16 146/83 H 92 L Room Air 08/18/25 04:00 08/18/25 04:00 08/18/25 04:00 08/18/25 04:00 08/18/25 04:00 08/18/25 06:40 Laboratory Results - last 24 hr 08/15/25 16:22: Urine Color Yellow, Urine Appearance Clear, Urine pH 6.0, Ur Specific [place] 1.010, Urine Protein Trace, Urine Glucose (UA) 3+, Urine Ketones Trace, Urine Blood Trace-i, Urine Nitrate Positive A, Urine Bilirubin Negative, Urine Urobilinogen 0.2, Ur Leukocyte Esterase Negative, Urine RBC None, Urine WBC 10-20, Ur Squamous Epith Cells None, Urine Bacteria 4+ 08/17/25 08:17: POC Glucose 316 H* 08/17/25 11:21: POC Glucose 354 H* 08/17/25 16:37: POC Glucose 362 H* 08/17/25 20:44: POC Glucose 291 H 08/18/25 06:01: POC Glucose 198 H 08/18/25 06:25: WBC 8.9, RBC 4.95, Hgb 12.5 L, Hct 39.5 L, MCV 79.8 L, MCH 25.3 L, MCHC 31.6 L, RDW 18.0 H, Plt Count 322, MPV 9.3, Neut % (Auto) 67.5, Lymph % (Auto) 13.5, [place] % (Auto) 11.9 H, Eos % (Auto) 4.4, Baso % (Auto) 0.8, Neut # (Auto) 6.0, Lymph # (Auto) 1.2, [place] # (Auto) 1.1 H, Eos # (Auto) 0.4, Baso # (Auto) 0.1, Sodium 140, Potassium 4.1, Chloride 104, Carbon Dioxide 26, Anion Gap 14.1, BUN 17 D, Creatinine 1.00, Estimated Creat Clear 90, Estimated GFR 74, Est GFR ( Amer) 90, Glucose 177 H, Calcium 8.6, Total Bilirubin 0.4, AST 49, ALT 43, Alkaline Phosphatase 95, Total Protein 6.9, Albumin 4.1 D, Globulin 2.8, Albumin/Globulin Ratio 1.5 I & O for Last 24 hours: Intake & Output 08/15/25 08/16/25 08/17/25 08/18/25 23:59 23:59 23:59 23:59 Intake Total 1100 / 1100 2400 / 2640 1680 / 1920 240 / 240 Output Total 400 / 400 2000 / 2600 1300 / 1300 Balance 1100 / 1100 2000 / 2240 -320 / -680 -1060 / -1060 Weight 88.314 kg 88.224 kg 89.494 kg 91.535 kg Microbiology Reports for the Last 24 Hours: Microbiology 08/15/25 16:22 Urine,Clean Catch Urine Culture - Final Escherichia coli 08/15/25 15:59 Blood Blood Culture - Preliminary NO GROWTH AFTER 48 HOURS 08/15/25 15:35 Blood Blood Culture - Preliminary NO GROWTH AFTER 48 HOURS Constitutional Constitutional: no acute distress, chronically ill appearing and cooperative *Routine HEENT Exam Head: Present normocephalic Eye: Present EOMI and PERRL ENT: Present mucous membranes moist *Routine Neck Exam Neck: Present supple; Absent lymphadenopathy Comments: tracheostomy *Routine Respiratory Exam Respiratory: Present CTA bilaterally; Absent rhonchi or wheezes *Routine Cardiovascular Exam Cardiovascular: Present RRR *Routine Abdominal Exam Abdominal: Present soft and normoactive bowel sounds; Absent tenderness *Routine Rectal Exam Patient deferred: visual exam *Routine Exam Patient deferred: penile exam *Routine Extremities Exam Extremities: Absent cyanosis, clubbing or edema *Routine Skin Exam Skin: Present warm; Absent rash *Routine Neurological Exam Neurological: Present alert, oriented X3 and moving all extremities; Absent altered mental status Comments: decreased sensation in feet and legs to calf, and hands Results Data Completed and Pending Labs on day of discharge: Labs from last 24 hours 08/18/25 08/18/25 08/17/25 06:25 06:01 20:44 WBC 8.9 RBC 4.95 Hgb 12.5 L Hct 39.5 L MCV 79.8 L MCH 25.3 L MCHC 31.6 L RDW 18.0 H Plt Count 322 MPV 9.3 Neut % (Auto) 67.5 Lymph % (Auto) 13.5 [place] % (Auto) 11.9 H Eos % (Auto) 4.4 Baso % (Auto) 0.8 Neut # (Auto) 6.0 Lymph # (Auto) 1.2 [place] # (Auto) 1.1 H Eos # (Auto) 0.4 Baso # (Auto) 0.1 Sodium 140 Potassium 4.1 Chloride 104 Carbon Dioxide 26 Anion Gap 14.1 BUN 17 D Creatinine 1.00 Estimated Creat Clear 90 Estimated GFR 74 Est GFR ( Amer) 90 Glucose 177 H POC Glucose 198 H 291 H Calcium 8.6 Total Bilirubin 0.4 AST 49 ALT 43 Alkaline Phosphatase 95 Total Protein 6.9 Albumin 4.1 D Globulin 2.8 Albumin/Globulin Ratio 1.5 Urine Color Urine Appearance Urine pH Ur Specific [place] Urine Protein Urine Glucose (UA) Urine Ketones Urine Blood Urine Nitrate Urine Bilirubin Urine Urobilinogen Ur Leukocyte Esterase Urine RBC Urine WBC Ur Squamous Epith Cells Urine Bacteria 08/17/25 08/17/25 08/17/25 16:37 11:21 08:17 WBC RBC Hgb Hct MCV MCH MCHC RDW Plt Count MPV Neut % (Auto) Lymph % (Auto) [place] % (Auto) Eos % (Auto) Baso % (Auto) Neut # (Auto) Lymph # (Auto) [place] # (Auto) Eos # (Auto) Baso # (Auto) Sodium Potassium Chloride Carbon Dioxide Anion Gap BUN Creatinine Estimated Creat Clear Estimated GFR Est GFR ( Amer) Glucose POC Glucose 362 H* 354 H* 316 H* Calcium Total Bilirubin AST ALT Alkaline Phosphatase Total Protein Albumin Globulin Albumin/Globulin Ratio Urine Color Urine Appearance Urine pH Ur Specific [place] Urine Protein Urine Glucose (UA) Urine Ketones Urine Blood Urine Nitrate Urine Bilirubin Urine Urobilinogen Ur Leukocyte Esterase Urine RBC Urine WBC Ur Squamous Epith Cells Urine Bacteria 08/15/25 16:22 WBC RBC Hgb Hct MCV MCH MCHC RDW Plt Count MPV Neut % (Auto) Lymph % (Auto) [place] % (Auto) Eos % (Auto) Baso % (Auto) Neut # (Auto) Lymph # (Auto) [place] # (Auto) Eos # (Auto) Baso # (Auto) Sodium Potassium Chloride Carbon Dioxide Anion Gap BUN Creatinine Estimated Creat Clear Estimated GFR Est GFR ( Amer) Glucose POC Glucose Calcium Total Bilirubin AST ALT Alkaline Phosphatase Total Protein Albumin Globulin Albumin/Globulin Ratio Urine Color Yellow Urine Appearance Clear Urine pH 6.0 Ur Specific [place] 1.010 Urine Protein Trace Urine Glucose (UA) 3+ Urine Ketones Trace Urine Blood Trace-i Urine Nitrate Positive A Urine Bilirubin Negative Urine Urobilinogen 0.2 Ur Leukocyte Esterase Negative Urine RBC None Urine WBC 10-20 Ur Squamous Epith Cells None Urine Bacteria 4+ Preliminary micro results at discharge 08/15/25 15:59 Blood Culture - Preliminary Blood NO GROWTH AFTER 48 HOURS 08/15/25 15:35 Blood Culture - Preliminary Blood NO GROWTH AFTER 48 HOURS DS: Diagnosis Discharge Diagnosis (1) DKA (diabetic ketoacidosis): Status: Acute Code(s): E11.10 - Type 2 diabetes mellitus with ketoacidosis without coma Qualifiers: Diabetes mellitus type: type 2 (2) Acute UTI: Status: Acute Code(s): N39.0 - Urinary tract infection, site not specified Problem details: Secondary to E. coli and Proteus present on admission (3) Essential hypertension: Status: Chronic Code(s): I10 - Essential (primary) hypertension (4) Hypothyroidism: Status: Chronic Code(s): E03.9 - Hypothyroidism, unspecified (5) Diabetes mellitus: Status: Chronic Code(s): E11.9 - Type 2 diabetes mellitus without complications Qualifiers: Diabetes mellitus complication detail: with polyneuropathy Diabetes mellitus complication status: with neurologic complications Diabetes mellitus nursing home insulin use: with intermediate accountant use Diabetes mellitus type: type 2 Qualified Code(s): E11.42 - Type 2 diabetes mellitus with diabetic polyneuropathy (6) Hyperlipidemia: Status: Chronic Code(s): E78.5 - Hyperlipidemia, unspecified Qualifiers: Hyperlipidemia type: mixed hyperlipidemia Qualified Code(s): E78.2 - Mixed hyperlipidemia (7) Former smoker: Status: Acute Code(s): Z87.891 - Personal history of nicotine dependence (8) Tracheostomy in place: Status: Chronic Code(s): Z93.0 - Tracheostomy status Meds Home Medications and Allergies Home Medications ?Medication ?Instructions ?Recorded ?Confirmed ?Type empagliflozin 10 mg tablet 10 mg PO DAILY 10/04/2407/31 History (Jardiance) Held on 08/18/25. Instructions: hold due to UTI pen needle, diabetic 31 gauge x #1,200 ea 10/04/2408/30 History 3/16 (BD Ultra-Fine Mini Pen Needle) lisinopril 40 mg tablet 40 mg PO DAILY 12/07/2408/06 History amlodipine 10 mg tablet 10 mg PO DAILY 08/16/2508/06 History aspirin 81 mg chewable tablet 81 mg PO DAILY 08/16/25 08/16/25 History atorvastatin 40 mg tablet 40 mg PO DAILY 08/16/2508/06 History ferrous sulfate 325 mg (65 mg 325 mg PO DAILY 08/16/25 08/16/25 History iron) tablet (FeroSul) omeprazole 40 mg capsule,delayed 40 mg PO DAILY 08/16/25 History release sertraline 100 mg tablet 100 mg PO DAILY 08/16/2507/31 History cefdinir 300 mg capsule 300 mg PO BID 2 days #4 caps 08/18/25 Rx gabapentin 400 mg capsule 400 mg PO TID 30 days #90 ca ps 08/18/25 Rx insulin glargine 100 unit/mL (3 40 unit (0.4 mL) SQ DA MUSHTAQ 30 days 08/18/25 Rx mL) subcutaneous pen (Lantus #15 mL Solostar U-100 Insulin) insulin lispro 100 unit/mL 15 unit (0.15 mL) SQ TID #1 5 mL 08/18/25 Rx subcutaneous pen (Humalog KwikPen (U-100) Insulin) levothyroxine 112 mcg tablet 112 mcg PO DAILY 30 days #30 tabs 08/18/25 Rx metformin 1,000 mg tablet 1,000 mg PO BID 30 days #60 tabs 08/18/25 Rx metoprolol succinate 50 mg 50 mg PO DAILY 30 days #30 tabs 08/18/25 Rx tablet,extended release 24 hr New Prescriptions to Start Prescriptions: cefdinir Candelario,Thierry gabapentin Candelario,Thierry insulin glargine [Lantus Solostar U-100 Insulin] Candelario,Thierry insulin lispro [Humalog KwikPen Insulin] Thierry Palomino levothyroxine Candelario,Thierry metformin Candelario,Thierry metoprolol succinate Thierry Palomino Allergies Allergy/AdvReac Type Severity Reaction Status Date / Time penicillin V (PENICILLIN V) Allergy Unknown Hives Verified 12/20/24 12:12 Penicillins (PENICILLINS) Allergy Unknown Hives Verified 12/20/24 12:12 Discharge Plan Disposition Patient Disposition: Home, Self-Care Condition: Good Discharge Order Discharge Orders: Discharge Order (Routine); Ordered 08/18/25 Ordered By: Thierry Palomino Follow up Plan Follow up with: Faby Ayala APRN [Primary Care Provider, Medical] - 08/24/25 10:40 am Referral Note: Patient to call and make a follow up appointment. Prescriptions/Medication Reconciliation: New gabapentin 400 mg Capsule 400 mg PO TID 30 Days Qty: 90 0RF insulin glargine [Lantus Solostar U-100 Insulin] 100 unit/mL (3 mL) Insulin Pen 40 unit SQ DAILY 30 Days Qty: 15 0RF cefdinir 300 mg capsule 300 mg PO BID 2 Days Qty: 4 0RF Rx Instructions: start morning of 08/19/25 insulin lispro [Humalog KwikPen Insulin] 100 unit/mL insulin pen 15 unit SQ TID Qty: 15 0RF Rx Instructions: three times a day with meals Continued (DME) pen needle, diabetic [BD Ultra-Fine Mini Pen Needle] 31 gauge x 3/16 needle See Rx Instructions .ROUTE .MEDSUPPLY Qty: 1200 Patient Comments: USE DIRECTED Rx Instructions: As directed lisinopril 40 mg tablet 40 mg PO DAILY Patient Comments: TAKE ONE TABLET BY MOUTH EVERY DAY FOR BLOOD PRESSURE atorvastatin 40 mg tablet 40 mg PO DAILY sertraline 100 mg tablet 100 mg PO DAILY omeprazole 40 mg capsule,delayed release(DR/EC) 40 mg PO DAILY amlodipine 10 mg tablet 10 mg PO DAILY ferrous sulfate [FeroSul] 325 mg (65 mg iron) tablet 325 mg PO DAILY aspirin 81 mg tablet,chewable 81 mg PO DAILY metoprolol succinate 50 mg tablet extended release 24 hr 50 mg PO DAILY 30 Days Qty: 30 0RF metformin 1,000 mg tablet 1,000 mg PO BID 30 Days Qty: 60 0RF levothyroxine 112 mcg tablet 112 mcg PO DAILY 30 Days Qty: 30 0RF Held Jardiance 10 mg tablet 10 mg PO DAILY Hold Instructions: hold due to UTI Discontinued clonazepam 1 mg tablet 0.5 mg PO DAILY PRN (Reason: Anxiety) Patient Comments: not filled since january 2025 insulin glargine [Lantus Solostar U-100 Insulin] 100 unit/mL (3 mL) insulin pen 8 unit SQ DAILY Patient Comments: INJECT 8 units SUBCUTANEOUSLY AT BEDTIME may increase by 2 units DIRECTED if average WEEKLY glucose over 200 maximum daily DOSE is 30 units Other Ambulatory Orders: Home Medical Equipment (Routine) Location: None Selected Ordered By: Thierry Palomino Problem Reconciliation Problems Reviewed?: Yes Patient Discharge Instructions ACTIVITY: Continue current activity DIET: continue same diet Patient Instructions: How to Check Your Blood Glucose, DI for Urinary Tract Infection (UTI), DI for Sepsis in Adults, DI for Diabetic Ketoacidosis, Stop Lig ht Infection Print Language: [place] Providers Primary Care Provider: Faby Ayala Admit Provider: Thierry Palomino Attending Provider: Thierry Palomino
[2025-08-18] MEDS: GABAPENTIN 400MG CAPSULE 400 MG PO (08:11)
[2025-08-18] MEDS: ASPIRIN EC 81MG TABLET 81 MG PO (08:11)
[2025-08-18] MEDS: SERTRALINE 100MG TABLET 100 MG PO (08:11)
[2025-08-18] MEDS: PHENAZOPYRIDINE 200MG TABLET 100 MG PO (08:12)
[2025-08-18] MEDS: IRBESARTAN 75MG TABLET 75 MG PO (08:12)
[2025-08-18] MEDS: INSULIN GLARGINE 100 UNITS/ML 3ML FLEXPEN 35 UNIT SUBCUT (08:15)
[2025-08-18 09:02] LABS: Magnesium 1.9 mg/dl (1.6-2.3)
[2025-08-18 09:17] LABS: POC Glucose,Bedside 310 gm/dL (70-110)
--- NOTE | 2025-08-18 09:19 | P.CONPHA_ITS ---
- Antimicrobial Stewardship Review culture & sensitivity review Stewardship interventions: culture & sensitivity review, reviewed - no change Comments: PATIENT ON ROCEPHIN FOR UTI, URINE CX POSITIVE FOR E. COLI WANG- SENSITIVE, BLOOD CX NO GROWTH AT 48 HR, WBC WNL AT 8.9 K/mm3, REMAINS AFEBRILE AT 24 HR.
[2025-08-18 11:04] LABS: POC Glucose,Bedside 307 gm/dL (70-110)
--- NOTE | 2025-08-19 07:48 | PC.NURSE ---
Urine culture forwarded to hospitalist.
== END 2025-08-18 12:54 | disposition home or self-care (01) | DRG 689 ==
LOC: ER 18:10 → 2ND 18:42
PROVIDERS: Physician Assistant; Admitting Provider Internal Medicine Adolescent Medicine; Emergency Provider Student in an Organized Health Care Education/Training Program; PCP Nurse Practitioner Family; Visit Provider Internal Medicine Adolescent Medicine
DX: N30.00 Acute cystitis without hematuria (principal); E11.10 Type 2 diabetes mellitus with ketoacidosis without coma; Z93.0 Tracheostomy status; I10 Essential (primary) hypertension; E03.9 Hypothyroidism, unspecified; E11.42 Type 2 diabetes mellitus with diabetic polyneuropathy; E78.2 Mixed hyperlipidemia; I25.10 Atherosclerotic heart disease of native coronary artery without angina pectoris; B96.20 Unspecified Escherichia coli [E. coli] as the cause of diseases classified elsewhere; K21.9 Gastro-esophageal reflux disease without esophagitis; D50.9 Iron deficiency anemia, unspecified; B96.4 Proteus (mirabilis) (morganii) as the cause of diseases classified elsewhere; T38.3X6A Underdosing of insulin and oral hypoglycemic [antidiabetic] drugs, initial encounter; Z91.148 Patient's other noncompliance with medication regimen for other reason; Z87.891 Personal history of nicotine dependence; Z85.01 Personal history of malignant neoplasm of esophagus; Z95.5 Presence of coronary angioplasty implant and graft; Z88.0 Allergy status to penicillin; Z79.4 Long term (current) use of insulin; Z79.84 Long term (current) use of oral hypoglycemic drugs; Z79.82 Long term (current) use of aspirin; Z79.890 Hormone replacement therapy; Z79.899 Other long term (current) drug therapy
CPT/HCPCS: 36415; 70450; 70496; 70498; 71045; 71275; 74177; 80048; 80053; 80320; 81001; 82009; 82803; 82962; 83036; 83605; 83690; 83735; 83880; 84100; 84443; 84484; 85025; 85610; 86803; 87040; 87086; 87088; 87186; 87389; 93005; 97162; 97166; 99285; J0696; J1650; J7030; J7120; Q9967